=== PATIENT | male | born 1970 | race Caucasian/White ===

== ENCOUNTER 2021-06-13 22:25 | Emergency (ER) | payer MEDICAID, SELFPAY ==
--- NOTE | ~2021-06-13 | XR_ITS ---
EXAMINATION: XR CHEST CLINICAL INFORMATION: Shortness of breath COMPARISON: None TECHNIQUE: Frontal view of the chest was obtained. FINDINGS: No convincing evidence for an acute process. No obvious failure or infiltrate. There is no effusion. There has been a median sternotomy. Surgical sutures overlie the left side of the mediastinum. No effusion. No pneumothorax. Difficult to comment on the cardiac silhouette due to AP film. XR/XR chest 1V IMPRESSION: No convincing evidence for an acute process on this portable study.
[2021-06-13 22:25] VITALS: BP 133/78; PULSE 72; O2SAT 97
[2021-06-13 22:30] VITALS: BP 125/68; PULSE 69; RESP 20; TEMP 37.1; O2SAT 97; BMI 31.0
--- NOTE | 2021-06-13 22:38 | ECG_ITS ---
Test Reason : CHEST PAIN Blood Pressure : / mmHG Vent. Rate : 074 BPM Atrial Rate : 074 BPM P-R Int : 128 ms QRS Dur : 088 ms QT Int : 386 ms P-R-T Axes : 025 035 058 degrees QTc Int : 428 ms Normal sinus rhythm Normal ECG No previous ECGs available Referred By: Ella Burgos Electronically Signed By:CHELSEA GREEN
[2021-06-13 22:40] VITALS: O2SAT 97
--- NOTE | 2021-06-13 22:46 | ED.GENADULT ---
HPI - General Adult General Chief complaint: Upper Respiratory Symptoms Stated complaint: sob Time Seen by Provider: 06/13/21 22:30 Source: patient and EMS Mode of arrival: EMS Limitations: no limitations History of Present Illness HPI narrative: Patient comes emergency room complaining of 2 days diarrhea, feeling short of breath, weakness, coughing which triggers chest pain and subsides with not coughing. Patient complaining of generalized malaise, fatigue. At this moment, patient denies chest pain or shortness of breath. Patient denies any known sick contacts Related Data Previous Rx's Medication Instructions Recorded acetaminophen 500 mg tablet 500 mg PO Q6H PRN #30 tab 06/14/21 Allergies Allergy/AdvReac Type Severity Reaction Status Date / Time No Known Allergies Allergy Verified 06/13/21 22:37 Review of Systems Review of Systems: Constitutional : No Weight loss, No Fever, No Chills, No Night Sweats, complaining of fatigue and general malaise ENT/Mouth : No Hearing loss, No Ear Pain, No Nasal Congestion, No Sinus Pain, No Hoarseness, No sore throat, No Rhinorrhea, No Swallowing Difficulty Eyes: No Eye Pain, No Swelling, No Redness, No Foreign Body, No Discharge, No Vision Changes Cardiovascular : No Chest Pain, no orthopnea, no edema no palpitations Respiratory : Complaining of dry cough, no wheezing, states feels out of breath Gastrointestinal : No Nausea, No Vomiting, complaining of diarrhea, No Constipation, No abdominal Pain, No Hematochezia, No Melena Genitourinary : no irregular bleeding, No Dysuria, No Urinary Frequency, No Hematuria, No Urinary Incontinence, No Urgency, No Flank Pain, No Urinary Flow Changes, No Hesitancy Musculoskeletal : No joint pain, No Myalgias, No Joint Swelling Skin : No Skin Lesions, No rash Neuro : No Weakness, No Numbness, No Paresthesias, No Loss of Consciousness, No Dizziness, No Headache Psych : No Anxiety/Panic, No Depression, No SI/HI/AH/VH, No Social Issues, Heme/Lymph: No Bruising, No Bleeding,No Lymphadenopathy Endocrine : No Polyuria, No Polydipsia, No Temperature Intolerance PMFSH Past Medical History Medical History Coronary atherosclerosis of bypass graft High cholesterol Hypertension Skin cancer Social History Social History Alcohol intake: never Patient Tobacco Use Status: Former Tobacco user Use of substances other than those prescribed or required for medical reasons: No Advance Directives: No Advance Directives Information Provided: Yes Physical Exam Vital Signs: Vital Signs: Last Vital Signs Temp 98.8 F 06/13/21 22:30 Pulse 69 06/13/21 22:30 Resp 20 06/13/21 22:30 BP 125/68 06/13/21 22:30 Pulse Ox 97 06/13/21 22:40 Body Mass Index 31.0 Const: Other: Appearance: Alert. Oriented X3. No acute distress. Eyes: Pupils equal, round and reactive to light. ENT: Pharynx normal. Neck: Normal inspection. Neck supple. No lymph nodes noted. No crepitus CVS: Normal heart rate and rhythm. Pulses normal. Normal S1 and S2 Respiratory: No respiratory distress. Breath sounds normal. No Wheezing. No rales Abdomen: Soft and nontender. No rigidity. No distention. good BS x4 Skin: Skin warm and dry. Normal skin color. Normal skin turgor. Extremities: No lower extremity edema. No Lacerations. No Rash Neuro: Oriented X 3. No motor deficit. No sensory deficit. Moving all extermities. No slurred speech. Course Course Course Narrative: I discussed the labs with the patient, patient tested positive for COVID-19 shortness of breath, patient feeling better, patient had not taking any Tylenol or at all prior to arrival, which made him feel better in the emergency room. Medical Decision Making Lab Data Result diagrams: 06/13/21 23:48 06/13/21 23:09 Labs: Lab Results 06/13/21 06/13/21 06/13/21 Range/Units 22:56 23:09 23:09 WBC (4.8-10.8) X10*3/uL RBC (4.60-5.80) X10*6/uL Hgb (14.0-18.0) g/dl Hct (42-52) % MCV (80-98) fL MCH (27.0-33.0) pg MCHC (31.0-36.0) g/dl RDW (11.0-16.0) % Plt Count (160-400) X10*3/uL MPV (9.4-12.4) fL Immature Gran % (Auto) (0.0-0.4) % Neut % (Auto) (45-73) % Lymph % (Auto) (20-40) % [place] % (Auto) (2-11) % Eos % (Auto) (0-4) % Baso % (Auto) (0-2) % Lymph # (Auto) (1.2-4.9) X10*3/uL [place] # (Auto) (0.1-1.2) X10*3/uL Eos # (Auto) (0.0-0.4) X10*3/uL Baso # (Auto) (0.0-0.2) X10*3/uL Abs Immat Gran (auto) (0.00-0.03) X10*3/uL Absolute Neuts (auto) (2.0-8.3) X10*3/uL Absolute Nucleated RBC (0.0-0.012) X10*3/uL Nucleated RBC % (auto) (0.0-0.2) /100WBC Sodium 138 (135-145) mmol/L Potassium 4.3 (3.3-5.1) mmol/L Chloride 107 (96-108) mmol/L Carbon Dioxide 23 (22-29) mmol/L Anion Gap 12 (12-20) BUN 10 (9-16) mg/dL Creatinine 1.02 (0.5-1.4) mg/dL Estim Creat Clear Calc 95.3 Estimated GFR > 60 Random Glucose 139 H (60-115) mg/dL Lactic Acid (0.5-2.0) mmol/L Calcium 9.0 (8.4-10.2) mg/dL Total Bilirubin 0.3 (0.0-1.0) mg/dL Direct Bilirubin < 0.2 (0.0-0.5) mg/dL AST 30 (5-37) U/L ALT 30 (0-40) U/L Alkaline Phosphatase 104 (39-117) U/L Troponin I High Sens 4.5 (<3.5-35.0) ng/L B-Natriuretic Peptide 45 (<100) pg/mL Total Protein 6.8 (6.5-8.0) g/dL Albumin 3.9 (3.5-5.0) g/dL COVID-19 (JOANA) Positive A (Negative) COVID-19 Clin Com See Note 06/13/21 06/13/21 Range/Units 23:48 23:48 WBC 7.7 (4.8-10.8) X10*3/uL RBC 4.09 L (4.60-5.80) X10*6/uL Hgb 13.5 L (14.0-18.0) g/dl Hct 38.1 L (42-52) % MCV 93.2 (80-98) fL MCH 33.0 (27.0-33.0) pg MCHC 35.4 (31.0-36.0) g/dl RDW 13.1 (11.0-16.0) % Plt Count 205 (160-400) X10*3/uL MPV 9.2 L (9.4-12.4) fL Immature Gran % (Auto) 0.4 (0.0-0.4) % Neut % (Auto) 76.1 H (45-73) % Lymph % (Auto) 10.2 L (20-40) % [place] % (Auto) 12.5 H (2-11) % Eos % (Auto) 0.7 (0-4) % Baso % (Auto) 0.1 (0-2) % Lymph # (Auto) 0.8 L (1.2-4.9) X10*3/uL [place] # (Auto) 1.0 (0.1-1.2) X10*3/uL Eos # (Auto) 0.1 (0.0-0.4) X10*3/uL Baso # (Auto) 0.0 (0.0-0.2) X10*3/uL Abs Immat Gran (auto) 0.03 (0.00-0.03) X10*3/uL Absolute Neuts (auto) 5.8 (2.0-8.3) X10*3/uL Absolute Nucleated RBC 0.000 (0.0-0.012) X10*3/uL Nucleated RBC % (auto) 0.0 (0.0-0.2) /100WBC Sodium (135-145) mmol/L Potassium (3.3-5.1) mmol/L Chloride (96-108) mmol/L Carbon Dioxide (22-29) mmol/L Anion Gap (12-20) BUN (9-16) mg/dL Creatinine (0.5-1.4) mg/dL Estim Creat Clear Calc Estimated GFR Random Glucose (60-115) mg/dL Lactic Acid 1.5 (0.5-2.0) mmol/L Calcium (8.4-10.2) mg/dL Total Bilirubin (0.0-1.0) mg/dL Direct Bilirubin (0.0-0.5) mg/dL AST (5-37) U/L ALT (0-40) U/L Alkaline Phosphatase (39-117) U/L Troponin I High Sens (<3.5-35.0) ng/L B-Natriuretic Peptide (<100) pg/mL Total Protein (6.5-8.0) g/dL Albumin (3.5-5.0) g/dL COVID-19 (JOANA) (Negative) COVID-19 Clin Com Imaging Data Chest x-ray: Radiologist's impression: No convincing evidence for an acute process. No obvious failure or infiltrate. There is no effusion. There has been a median sternotomy. Surgical sutures overlie the left side of the mediastinum. No effusion. No pneumothorax. Difficult to comment on the cardiac silhouette due to AP film. XR/XR chest 1V IMPRESSION: No convincing evidence for an acute process on this portable study. ECG Data Attestation: I personally reviewed and interpreted this ECG as follows: (Normal sinus rhythm, heart rate 74, no ST segment depression or elevation, no T-wave inversions, QTC 428) Discharge Plan Discharge Clinical Impression: COVID-19 Patient Disposition: Home, Self-Care Instructions: COVID-19 (Coronavirus Disease 2019) (ED) Additional Instructions: Please follow-up with your primary care physician tomorrow. If you have any worsening or new symptoms, please return to the emergency room or call 911 Prescriptions: New acetaminophen 500 mg tablet 500 mg PO Q6H PRN (Reason: fever or pain) Qty: 30 RF: 0
[2021-06-13 23:13] LABS: COVID-19 Test Positive (Negative)
[2021-06-13] MEDS: ondansetron HCL 4 MG/2 ML VIAL IVPUSH (23:29)
[2021-06-13] MEDS: Loperamide HCl 2 MG CAPSULE 4 MG PO (23:29)
[2021-06-13] MEDS: 0.9 % Sodium Chloride 1,000 ML 999 ML IVCONT (23:30)
[2021-06-13 23:43] LABS: Alanine Aminotransferase 30 U/L (0-40); Albumin Level 3.9 g/dL (3.5-5.0); Alkaline Phosphatase 104 U/L (39-117); Anion Gap 12 (12-20); Aspartate Amino Transferase 30 U/L (5-37); Bilirubin Direct < 0.2 mg/dL (0.0-0.5); Bilirubin Total 0.3 mg/dL (0.0-1.0); Blood Urea Nitrogen 10 mg/dL (9-16); Carbon Dioxide 23 mmol/L (22-29); Chloride 107 mmol/L (96-108); Creatinine Clr Calc Pharmacy 95.3; Estimated Glomerular Filt Rate > 60; Glucose Random 139 mg/dL (60-115); Potassium 4.3 mmol/L (3.3-5.1); Sodium 138 mmol/L (135-145); Total Protein 6.8 g/dL (6.5-8.0)
[2021-06-13 23:49] LABS: B Type Natriuretic Peptide 45 pg/mL (<100); Troponin-I High Sensitivity 4.5 ng/L (<3.5-35.0)
[2021-06-13 23:55] LABS: MANUAL DIFF FLAG NO
[2021-06-13 23:56] LABS: Basophils Percent Auto 0.1 % (0-2); Eosinophils Absolute Auto 0.1 X10*3/uL (0.0-0.4); Eosinophils Percent Auto 0.7 % (0-4); Hematocrit 38.1 % (42-52); Hemoglobin 13.5 g/dl (14.0-18.0); Imm Gran Abs Auto 0.03 X10*3/uL (0.00-0.03); Imm Gran Pct Auto 0.4 % (0.0-0.4); Lymphocytes Absolute Auto 0.8 X10*3/uL (1.2-4.9); Lymphocytes Percent Auto 10.2 % (20-40); Mean Corpuscular HGB Conc 35.4 g/dl (31.0-36.0); Mean Corpuscular Volume 93.2 fL (80-98); Mean Platelet Volume 9.2 fL (9.4-12.4); Monocytes Percent Auto 12.5 % (2-11); Neutrophils Absolute Auto 5.8 X10*3/uL (2.0-8.3); Neutrophils Percent Auto 76.1 % (45-73); Platelet Count 205 X10*3/uL (160-400); Red Blood Count 4.09 X10*6/uL (4.60-5.80); Red Cell Distribution Width 13.1 % (11.0-16.0); White Blood Count 7.7 X10*3/uL (4.8-10.8)
[2021-06-14 00:04] LABS: Lactic Acid 1.5 mmol/L (0.5-2.0)
== END 2021-06-14 01:56 | disposition home or self-care (01) ==
PROVIDERS: Emergency Provider Emergency Medicine
DX: U07.1 COVID-19 (principal); R06.02 Shortness of breath; R05 Cough; Z79.899 Other long term (current) drug therapy; Z87.891 Personal history of nicotine dependence
CPT/HCPCS: 36415; 71045; 80048; 80076; 83605; 83880; 84484; 85025; 85610; 87040; 87635; 93005; 96361; 96374; 99284; J2405

== ENCOUNTER 2023-07-06 16:50 | Emergency (ER) | payer MEDICAID, SELFPAY ==
--- NOTE | 2023-07-06 | ECG_ITS ---
Test Reason : CHEST PAIN Blood Pressure : / mmHG Vent. Rate : 084 BPM Atrial Rate : 084 BPM P-R Int : 136 ms QRS Dur : 076 ms QT Int : 344 ms P-R-T Axes : 034 020 075 degrees QTc Int : 406 ms Normal sinus rhythm Nonspecific ST abnormality Septal leads Abnormal ECG When compared with ECG of 13-JUN-2021 22:54, No significant change was found Referred By: Generic ED Physician Electronically Signed By:MADISON POSADA MD
--- NOTE | ~2023-07-06 | XR_ITS ---
EXAMINATION: XR CHEST CLINICAL INFORMATION: Chest pain COMPARISON: None available. TECHNIQUE: Frontal view of the chest was obtained. FINDINGS: The lungs are well-expanded and clear of acute pneumonic process. Heart size and pulmonary vascularity is normal. There are mediastinal edwige and median sternotomy sutures from previous CABG. No gross bony abnormality. XR/XR chest 1V IMPRESSION: Unremarkable chest examination.
[2023-07-06 16:58] VITALS: BP 110/72; PULSE 108; O2SAT 99
[2023-07-06 17:03] VITALS: BP 107/68; PULSE 87; RESP 18; TEMP 37.1; O2SAT 100; BMI 30.1
--- NOTE | 2023-07-06 17:12 | ED_ITS ---
HPI - Chest Pain General Chief Complaint: Chest Pain Stated Complaint: CHEST PAIN Time Seen by Provider: 07/06/23 17:12 Source: patient Mode of arrival: EMS Limitations: no limitations History of Present Illness HPI narrative: Patient 53 years old with history of coronary artery disease status post 4 vessel CABG in 2013 comes in for mid chest pain nonradiating received 324 mg of aspirin and 0.4 mg of nitroglycerin. According to patient patient was doing good since bypass surgery never used to get chest pain for last 4 months been having chest pain localized in the mid chest without significant radiation sharp in character lasting only for few minutes then slowly taper off happens mostly when he does any exertion no shortness of breath no diaphoresis no nausea no vomiting patient not able to see any PCP or facetor since this happening. Does not have any nitroglycerin at home taking aspirin daily at this time patient is feeling much better after the EMS give aspirin and nitroglycerin pain started at 15:00 when he ambulated for about 20 minutes Related Data Previous Rx's Medication Instructions Recorded isosorbide mononitrate 30 mg 30 mg PO DAILY #30 tabs 07/06/23 tablet,extended release 24 hr nitroglycerin 0.4 mg sublingual 0.4 mg sublingual Q5M PRN chest 07/06/23 tablet pain #30 tabs Allergies Allergy/AdvReac Type Severity Reaction Status Date / Time No Known Allergies Allergy Verified 06/13/21 22:37 Review of Systems 2 Review of Systems: Yes all other systems are reviewed and are negative [facility] Past Medical History Medical History Skin cancer Coronary atherosclerosis of bypass graft Hypertension High cholesterol Social History Social History Alcohol intake: never Patient Tobacco Use Status: Former Tobacco user Smoked in Last 30 Days: No Use of substances other than those prescribed or required for medical reasons: No Advance Directives: No Advance Directives Information Provided: No Physical Exam 2 Vital Signs: Vital Signs: Last Vital Signs Temp 99.0 F 07/06/23 17:32 Pulse 66 07/06/23 21:03 Resp 16 07/06/23 21:03 BP 113/66 07/06/23 17:32 Pulse Ox 98 07/06/23 21:03 O2 Del Method Room Air 07/06/23 21:03 BMI result Body Mass Index 30.1 Appearance: Alert. Oriented X3. No acute distress. Eyes: No pallor or icterus ENT: Pharynx normal. Oral Mucosa moist Neck: Normal inspection. Neck supple. CVS: Normal heart rate and rhythm. Pulses normal. No murmur/rub or gallop Respiratory: No respiratory distress. Equal air entry bilateral, no wheezing/rales/rhonchi Abdomen: Soft and nontender. Bowel sounds are present, no mass palpable, no CVA tenderness Skin: Skin warm and dry. Normal skin color. Normal skin turgor. Extremities: No lower extremity edema. No calf tenderness Neuro: Oriented X 3. No motor deficit. Medications Administered Discontinued Medications Generic Name Dose Route Start Last Admin Trade Name Freq PRN Reason Stop Dose Admin Nitroglycerin 0.5 inch 07/06/23 17:46 07/06/23 18:08 Nitroglycerin 2 % Oint 1 Gm Packet TRANSDERMA 07/06/23 17:47 0.5 inch ONCE ONE Administration Medical Decision Making Medical Decision Making [facility] Narrative: Patient has an exertional angina with history of CABG no acute EKG changes 2 sets of troponin negative will discharge patient home on Imdur 30 mg with nitroglycerin tablets sublingually as needed patient is supposed to follow facetor and PCP next week Differential Diagnosis Differential Diagnoses: The differential diagnosis associated with the presentation includes ACS/unstable angina/pericarditis/musculoskeletal chest pain Lab Data [facility] Lab Attestation statement: I reviewed the patient's lab results. 07/06/23 17:30 07/06/23 17:30 Labs: Lab Results 07/06/23 07/06/23 Range/Units 17:30 19:50 WBC 13.0 H (4.8-10.8) X10*3/uL RBC 4.70 (4.60-5.80) X10*6/uL Hgb 15.0 (14.0-18.0) g/dl Hct 43.0 (42.0-52.0) % MCV 91.5 (80.0-98.0) fL MCH 31.9 (27.0-33.0) pg MCHC 34.9 (31.0-36.0) g/dl RDW 12.3 (11.0-16.0) % Plt Count 248 (160-400) X10*3/uL MPV 9.1 L (9.4-12.4) fL Immature Gran % (Auto) 0.4 (0.0-0.4) % Neut % (Auto) 82.1 H (45-73) % Lymph % (Auto) 9.2 L (20-40) % [place] % (Auto) 7.8 (2-11) % Eos % (Auto) 0.3 (0-4) % Baso % (Auto) 0.2 (0-2) % Lymph # (Auto) 1.2 (1.2-4.9) X10*3/uL [place] # (Auto) 1.0 (0.1-1.2) X10*3/uL Eos # (Auto) 0.0 (0.0-0.4) X10*3/uL Baso # (Auto) 0.0 (0.0-0.2) X10*3/uL Abs Immat Gran (auto) 0.05 H (0.00-0.03) X10*3/uL Absolute Neuts (auto) 10.7 H (2.0-8.3) x10*3/uL Absolute Nucleated RBC 0.000 (0.0-0.012) X10*3/uL Nucleated RBC % (auto) 0.0 (0.0-0.2) /100WBC PT 12.1 (11.1-13.3) SEC INR 1.0 (0.9-1.1) APTT 29.9 (26.0-36.4) SEC Sodium 140 (135-145) mmol/L Potassium 4.2 (3.3-5.1) mmol/L Chloride 106 (96-108) mmol/L Carbon Dioxide 23 (22-29) mmol/L Anion Gap 15 (12-20) BUN 19 H (9-16) mg/dL Creatinine 1.10 (0.5-1.4) mg/dL Estim Creat Clear Calc 82.6 Estimated GFR > 60 Random Glucose 136 H (60-115) mg/dL Calcium 9.4 (8.4-10.2) mg/dL Magnesium 2.0 (1.6-2.6) mg/dL Total Bilirubin 0.7 (0.0-1.0) mg/dL AST 19 (5-37) U/L ALT 18 (0-40) U/L Alkaline Phosphatase 117 (39-117) U/L Troponin I High Sens 4.1 < 2.7 (<3.5-35.0) ng/L Total Protein 7.4 (6.5-8.0) g/dL Albumin 3.9 (3.5-5.0) g/dL Independent Interpretation I performed an independent interpretation of an: EKG Interpretation: Normal sinus rhythm at rate 84 beats per minute normal interval normal axis no acute ST changes no acute ischemic Discharge Plan Discharge Clinical Impression: Chest pain Patient Disposition: Home, Self-Care Instructions: Chest Pain (ED) Additional Instructions: Follow-up with your facetor next week as advised Continue your medications Start taking Imdur 30 mg daily Take Nitroglycerin tablet as needed for chest pain and Report to the ER if worsening of the chest Toño un seguimiento con atkins cardi?logo la pr?xima semana seg?n lo recomendado Contin?e con carl medicamentos Empiece a tone Imdur 30 mg al d?a. Stearns la tableta de nitroglicerina seg?n sea necesario para el dolor de pecho y Informe a urgencias si el t?rax empeora. Prescriptions: New isosorbide mononitrate 30 mg tablet extended release 24 hr 30 mg PO DAILY Qty: 30 0RF nitroglycerin 0.4 mg tablet, sublingual 0.4 mg sublingual Q5M PRN (Reason: chest pain) Qty: 30 0RF Rx Instructions: do not exceed 3 doses per episode Interventions: ED Discharge Assessment Last Done: 07/06/23 21:03 Discharge Date/Time: 07/06/23 21:04 Print Language: Cook Islander
[2023-07-06 17:32] VITALS: BP 113/66; PULSE 83; RESP 16; TEMP 37.2; O2SAT 98
--- NOTE | 2023-07-06 17:33 | MHC.EDTECH ---
THIS PCT JUST ASSUMED CARE OF PT ,VITALS TAKEN ,BLOOD DRAWN AND SENT TO LAB .
[2023-07-06 17:34] LABS: MANUAL DIFF FLAG NO
[2023-07-06 17:36] LABS: Basophils Percent Auto 0.2 % (0-2); Eosinophils Percent Auto 0.3 % (0-4); Imm Gran Abs Auto 0.05 X10*3/uL (0.00-0.03); Imm Gran Pct Auto 0.4 % (0.0-0.4); Lymphocytes Absolute Auto 1.2 X10*3/uL (1.2-4.9); Lymphocytes Percent Auto 9.2 % (20-40); Mean Corpuscular HGB Conc 34.9 g/dl (31.0-36.0); Mean Corpuscular Hemoglobin 31.9 pg (27.0-33.0); Mean Corpuscular Volume 91.5 fL (80.0-98.0); Mean Platelet Volume 9.1 fL (9.4-12.4); Monocytes Percent Auto 7.8 % (2-11); Neutrophils Absolute Auto 10.7 x10*3/uL (2.0-8.3); Neutrophils Percent Auto 82.1 % (45-73); Platelet Count 248 X10*3/uL (160-400); Red Cell Distribution Width 12.3 % (11.0-16.0)
[2023-07-06 17:41] LABS: Prothrombin Time 12.1 SEC (11.1-13.3)
[2023-07-06 17:44] LABS: Partial Thromboplastin Time 29.9 SEC (26.0-36.4)
[2023-07-06 17:48] LABS: Alanine Aminotransferase 18 U/L (0-40); Albumin Level 3.9 g/dL (3.5-5.0); Alkaline Phosphatase 117 U/L (39-117); Anion Gap 15 (12-20); Aspartate Amino Transferase 19 U/L (5-37); Bilirubin Total 0.7 mg/dL (0.0-1.0); Blood Urea Nitrogen 19 mg/dL (9-16); Calcium 9.4 mg/dL (8.4-10.2); Carbon Dioxide 23 mmol/L (22-29); Chloride 106 mmol/L (96-108); Creatinine Clr Calc Pharmacy 82.6; Estimated Glomerular Filt Rate > 60; Glucose Random 136 mg/dL (60-115); Potassium 4.2 mmol/L (3.3-5.1); Sodium 140 mmol/L (135-145); Total Protein 7.4 g/dL (6.5-8.0)
[2023-07-06 17:49] VITALS: PULSE 86
[2023-07-06 17:55] LABS: Troponin-I High Sensitivity 4.1 ng/L (<3.5-35.0)
[2023-07-06] MEDS: Nitroglycerin 2 % Oint 1 GM Packet 0.5 INCH TRANSDERMA (18:08)
--- NOTE | 2023-07-06 18:52 | MHC.EDTECH ---
PT HAAD [employer] AND FRIES FOR DINNER ,PT NOW SLEEPING ,NO APPARENT DISTRESS AT THIS TIME .
[2023-07-06 20:24] LABS: Troponin-I High Sensitivity < 2.7 ng/L (<3.5-35.0)
[2023-07-06 21:03] VITALS: PULSE 66; RESP 16; O2SAT 98
== END 2023-07-06 21:04 | disposition home or self-care (01) ==
PROVIDERS: Emergency Provider Internal Medicine
DX: R07.89 Other chest pain (principal); I25.10 Atherosclerotic heart disease of native coronary artery without angina pectoris; Z79.899 Other long term (current) drug therapy
CPT/HCPCS: 36415; 71045; 80053; 83735; 84484; 85025; 85610; 85730; 93005; 99283; 99285

== ENCOUNTER 2024-10-13 22:32 | Inpatient (IN) | payer OTHER, SELFPAY ==
[2024-10-13 23:00] VITALS: BP 152/78; PULSE 80; RESP 16; TEMP 36.6; O2SAT 99
[2024-10-14 00:01] VITALS: BMI 28.9
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
[2024-10-14 07:00] VITALS: BMI 29.0
[2024-10-14 07:51] LABS: Estimated Average Glucose 143 mg/dL; Hemoglobin A1C 188.0958 umol/L; Hemoglobin A1c % 6.6 % (<6.0)
[2024-10-14 08:05] LABS: Glucose, Whole Blood 135 mg/dL (60-115)
[2024-10-14 08:09] LABS: Alanine Aminotransferase 110 U/L (0-40); Albumin Level 3.5 g/dL (3.5-5.0); Alkaline Phosphatase 169 U/L (39-117); Anion Gap 12 (12-20); Aspartate Amino Transferase 62 U/L (5-37); Bilirubin Total 0.3 mg/dL (0.0-1.0); Blood Urea Nitrogen 12 mg/dL (9-16); Calcium 8.8 mg/dL (8.4-10.2); Carbon Dioxide 23 mmol/L (22-29); Chloride 109 mmol/L (96-108); Cholesterol 126 mg/dL (<200); Creatinine Clr Calc Pharmacy 99.9; Estimated Glomerular Filt Rate > 60; Glucose Random 154 mg/dL (60-115); HDL Cholesterol 35 mg/dL (>40); LDL Cholesterol Calculated 56 mg/dL (<100); Potassium 4.5 mmol/L (3.3-5.1); Sodium 139 mmol/L (135-145); Triglycerides 179 mg/dL (<150)
[2024-10-14 08:26] LABS: Thyroid Stimulating Hormone 2.04 uIU/mL (0.32-4.0)
[2024-10-14 08:38] LABS: Folate 9.9 ng/mL (> or = 4.0); Vitamin B12 895 pg/mL (200-900)
[2024-10-14 09:17] VITALS: BP 116/62; PULSE 65; RESP 18; TEMP 36.3; O2SAT 96
--- NOTE | 2024-10-14 09:43 | PC.NURSE ---
Pt declines flu shot, reporting he was already vaccinated this year.
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
[2024-10-14] MEDS: ARIPiprazole 10 MG TABLET PO (10:16)
[2024-10-14] MEDS: traMADoL HCL 50 MG TABLET 100 MG PO ×2 (10:16→18:01)
[2024-10-14] MEDS: Aspirin Enteric Coated 81 MG TABLET.DR PO (10:16)
[2024-10-14 10:44] VITALS: BP 116/57
--- NOTE | 2024-10-14 11:11 | HO.PM.IMCN ---
History of Present Illness Data of Consult Service Date: 10/14/24 Primary Care Provider: Unknown Physician [facility] Reason for consult: Admission H&P Pt is a 54-year-old Haitian-speaking male with a PMH significant for CAD s/p CABG in 2012, HTN, HLD, peripheral artery disease, insulin-dependent type 2 diabetes, peripheral neuropathy, hx diabetic foot ulcer w/osteomyelitis s/p multiple toe amputations, and GERD who is admitted to psychiatry unit for SI/HI with auditory hallucinations telling him to kill others and himself. Pt initially presented to [facility] ED on 10/02/2024 for chronic diabetic foot ulcer and was medically admitted for osteomyelitis. Pt underwent 2nd toe augmentation of right foot and completed antibiotic course while in the hospital. Pt apparently had suicide attempt due to medication overdose while in the hospital, being found unresponsive and with pills from home under his below. Medical consult for admission H&P. Pt has numerous acute and chronic complaints. Pt complains of worsening pain in his right foot, as well as numbness and tingling in upper and lower extremities that has been ongoing for some time. Earlier today stated felt chest pressure that was alleviated by nitro. Also complains of left arm cramps for the past 2-3 weeks, as well as worsening eyesight over the past year. No fever, chills, nausea, vomiting, abdominal pain. Denies shortness or breath or difficulty breathing. ? Review of Systems Review of Systems: Negative except for that which is stated in the HPI ON LICENSE OF [facility] Medical History (Updated 10/15/24 @ 21:50 by VICENTE Goldberg) Depression Skin cancer Coronary atherosclerosis of bypass graft Hypertension High cholesterol Social History Household Members: None Housing: Homeless Do you presently have visiting nurse or other home services: No Alcohol intake: never Patient Tobacco Use Status: Former Tobacco user Smoked in Last 30 Days: No Patient Interested in Nicotine Replacement: No Patient Given Instructions on How to Stop Smoking: No Second Hand Smoke Exposure: No Use of substances other than those prescribed or required for medical reasons: No Substance Use Type: Marijuana Substance Use Frequency: Occasionally Last Used Substance: Weeks (ago) Currently Displaying Signs/Symptoms of Drug Intoxication Withdrawal: No Any prior treatment program specific to substance use: No Have you been hit, kicked, punched, or otherwise hurt by someone within the past year? If so, by whom?: No Do you feel safe in your current relationship?: Yes Is there a partner from a previous relationship who is making you feel unsafe now?: No Are you made to feel afraid or neglected: No Advance Directives: No Advance Directives Information Provided: No Do you have thoughts of harming others: None Do you have a plan to hurt others: No Plan Recently lost weight without trying: No Eating poorly because of decreased appetite: No Nutrition Risks: No Nutritional Risk Poor oral hygiene: No service: No Sexual orientation: Straight/Heterosexual Meds Allergies Allergy/AdvReac Type Severity Reaction Status Date / Time ibuprofen Allergy Unknown Unknown Verified 10/15/24 07:20 tuberculin, purified protein Allergy Unknown Unknown Verified 10/15/24 07:20 deriva Active Medications: Current Medications Acetaminophen (Acetaminophen 325 Mg Tablet) 650 mg PO Q6H PRN PRN Reason: Headache/Pain Mild Scale (1-3) Al Hydroxide/Mg Hydroxide (Magnesium Hydrox/Alum Hydrox 30 Ml Oral.Susp) 30 ml PO Q6H PRN PRN Reason: Heartburn/Nausea Alprazolam (Alprazolam 0.5 Mg Tablet) 2 mg PO BID PRN PRN Reason: severe anxiety Aripiprazole (Aripiprazole 10 Mg Tablet) 10 mg PO DAILY [facility] Last Admin: 10/14/24 10:16 Dose: 10 mg Aspirin (Aspirin Enteric Coated 81 Mg Tablet.Dr) 81 mg PO DAILY [facility] Last Admin: 10/14/24 10:16 Dose: 81 mg Atorvastatin Calcium (Atorvastatin Calcium 80 Mg Tablet) 80 mg PO BEDTIME [facility] Enalapril Maleate (Enalapril Maleate 2.5 Mg Tablet) 2.5 mg PO DAILY [facility]; Protocol Last Admin: 10/14/24 10:44 Dose: 2.5 mg Famotidine (Famotidine 20 Mg Tablet) 40 mg PO BEDTIME [facility] Hydroxyzine HCl (Hydroxyzine Hcl 25 Mg Tablet) 25 mg PO Q6H PRN PRN Reason: Anxiety Insulin Glargine (Insulin Glargine,Hum.Rec.Anlog 100 Unit/Ml 10 Ml Vial) 44 unit SUBCUT DAILY [facility] Insulin Human Lispro (Insulin Lispro 100 Unit/Ml 3 Ml Vial) 0 unit SUBCUT QIDACHS [facility]; Protocol Last Admin: 10/14/24 09:16 Dose: Not Given Magnesium Hydroxide (Milk Of Magnesia 30 Ml Oral.Susp) 30 ml PO DAILY PRN PRN Reason: Constipation Melatonin (Melatonin 3 Mg Tablet) 9 mg PO BEDTIME [facility] Metoprolol Tartrate (Metoprolol Tartrate 25 Mg Tablet) 25 mg PO BID [facility]; Protocol Nicotine Polacrilex (Nicotine Polacrilex 2 Mg Gum) 4 mg BUCCAL Q2H PRN PRN Reason: Nicotine Cravings Nitroglycerin (Nitroglycerin 0.4 Mg Tab.Subl) 0.4 mg SUBLINGUAL Q5M PRN PRN Reason: chest pain Omeprazole (Omeprazole 20 Mg Capsule.Dr) 20 mg PO DAILY@0630 [facility] Ondansetron HCl (Ondansetron Odt 4 Mg Tab.Rapdis) 4 mg TRANSLINGU Q8H PRN PRN Reason: nausea/vomiting Pregabalin (Pregabalin 150 Mg Capsule) 150 mg PO BID [facility] Senna (Sennosides 8.6 Mg Tablet) 17.2 mg PO BEDTIME [facility] Tramadol HCl (Tramadol Hcl 50 Mg Tablet) 100 mg PO Q8H [facility] Last Admin: 10/14/24 10:16 Dose: 100 mg Trazodone HCl (Trazodone Hcl 50 Mg Tablet) 50 mg PO BEDTIME MRX1 PRN PRN Reason: Insomnia Home Medications ?Medication ?Instructions ?Recorded ?Confirmed ?Last Taken ?Type acetaminophen 500 mg tablet 1,000 mg PO Q8H 10/14/24 10/14/24 Unknown History alprazolam 2 mg tablet 2 mg PO BID 10/14/24 10/14/24 Unknown History aripiprazole 10 mg tablet 10 mg PO QAM 10/14/24 10/14/24 Unknown History aspirin 81 mg tablet,delayed 81 mg PO DAILY 10/14/24 10/14/24 Unknown History release atorvastatin 80 mg tablet 80 mg PO BEDTIME 10/14/24 10/14/24 Unknown History bupropion HCl 150 mg 24 hr tablet, 150 mg PO QAM 10/14/24 10/14/24 Unknown History extended release doxepin 150 mg capsule 150 mg PO BEDTIME 10/14/24 10/14/24 Unknown History enalapril maleate 2.5 mg tablet 2.5 mg PO DAILY 10/14/24 10/14/24 Unknown History escitalopram oxalate 20 mg tablet 20 mg PO QAM 10/14/24 10/14/24 Unknown History famotidine 40 mg tablet 40 mg PO BEDTIME 10/14/24 10/14/24 Unknown History insulin glargine 100 unit/mL (3 44 unit subcut DAILY 10/14/24 10/14/24 Unknown History mL) subcutaneous pen (Lantus Solostar U-100 Insulin) lidocaine 5 % topical patch patch topical DAILY 10/14/24 Unknown History melatonin 5 mg tablet 10 mg PO BEDTIME 10/14/24 10/14/24 Unknown History metoprolol tartrate 25 mg tablet 25 mg PO BID blood pressure 10/14/24 10/14/24 Unknown History ondansetron HCl 4 mg tablet 4 mg PO Q8H PRN nausea/vomiting 10/14/24 10/14/24 Unknown History pantoprazole 40 mg tablet,delayed 40 mg PO DAILY 10/14/24 10/14/24 Unknown History release pregabalin 150 mg capsule 150 mg PO BID 10/14/24 10/14/24 Unknown History sennosides 8.6 mg tablet (senna) 17.2 mg PO BEDTIME 10/14/24 10/14/24 Unknown History tramadol 50 mg tablet 100 mg PO Q8H 10/14/24 10/14/24 Unknown History zolpidem 10 mg tablet 10 mg PO BEDTIME 10/14/24 10/14/24 Unknown History Physical Exam Vital Signs and Narrative: Vital Signs: Last Vital Signs Temp 97.4 F 10/14/24 09:17 Pulse 65 10/14/24 09:17 Resp 18 10/14/24 09:17 BP 116/57 L 10/14/24 10:44 Pulse Ox 96 10/14/24 09:17 O2 Del Method Room Air 10/14/24 09:17 BMI result Body Mass Index 28.9 General: AOx3, no acute distress Resp: CTA bilaterally CVS: S1, S2, RRR GI: +BS, NT, no distention Skin: Warm, dry Neuro: Cranial nerves II-XII grossly intact bilaterally. Motor grossly intact bilaterally Extremities: Right foot with toes covered in bandage with small amount of blood seeping through. Upper extremities with preserved and symmetric active and passive range of motion. Results Labs 10/14/24 07:35 Labs: Laboratory Results - last 24 hr 10/14/24 10/14/24 07:35 07:50 Anion Gap 12 Estim Creat Clear Calc 99.9 Estimated GFR > 60 POC Glucose 135 H Random Glucose 154 H Estimat Average Glucose 143 Hemoglobin A1c % 6.6 H Calcium 8.8 D Magnesium 2.0 Total Bilirubin 0.3 AST 62 H ALT 110 H Alkaline Phosphatase 169 H Total Protein 7.0 Albumin 3.5 Triglycerides 179 H Cholesterol 126 LDL Cholesterol, Calc 56 HDL Cholesterol 35 L Vitamin B12 895 Folate 9.9 TSH 2.04 Assessment and Plan (1) Medical clearance for psychiatric admission: Status: Acute Plan Pt is a 54-year-old Haitian-speaking male with a PMH significant for CAD s/p CABG, HTN, HLD, peripheral artery disease, insulin-dependent type 2 diabetes, peripheral neuropathy, hx diabetic foot ulcer w/osteomyelitis s/p multiple toe amputations, and GERD who is admitted to [facility] psychiatry unit for SI/HI with auditory hallucinations telling him to kill others and himself. Pt initially presented to [facility] ED on 10/02/2024 for chronic diabetic foot ulcer and was medically admitted for osteomyelitis. Pt underwent 2nd toe augmentation of right foot and completed antibiotic course while in the hospital. Pt apparently had suicide attempt due to medication overdose while in the hospital, being found unresponsive and with pills from home under his below. Medical consult for admission H&P. Mood disorder Plan as per psychiatry Diabetic foot ulcer with osteomyelitis Pt admitted to [facility] on 10/02/2024 for concerns of osteomyelitis secondary to chronic diabetic foot ulcer Underwent 2nd toe amputation on right foot without complications Has completed antibiotic course Treat diabetes as below Wound care consult for wound management Analgesics as per Psychiatry Follow up outpatient with vascular surgery Insulin-dependent type 2 diabetes Continue Lantus Will place on sliding scale insulin Encourage diabetic diet and diabetic snacking CAD Continue aspirin, statin isosorbide mononitrate Peripheral neuropathy Continue pregabalin HTN Continue enalapril, metoprolol GERD Continue famotidine, PPI Blurriness Follow up with optometry Thank you for allowing us to participate in the care of this patient. Signing off at this time. Please re-consult if any acute complaints or issues arise.
[2024-10-14 12:18] LABS: Glucose, Whole Blood 200 mg/dL (60-115)
[2024-10-14] MEDS: Insulin Lispro 100 UNIT/ML 3 ML VIAL SUBCUT ×3 (12:25→20:45)
--- NOTE | 2024-10-14 13:58 | HE.PHANOTE ---
Upon order verification, I noticed that the dose of aripiprazole and lantus were incorrect compared to the discharge packet from [facility] (where pt was at before transferring to [facility]). [facility]'s discharge packet had the dose of aripiprazole as 15 mg daily and lantus as [address] Saldivar was notified of the discrepancies and he said he will pass along the message to Hortencia Katz.
[2024-10-14] MEDS: Acetaminophen 325 MG TABLET 650 MG PO ×2 (14:40→20:35)
[2024-10-14 17:03] LABS: Glucose, Whole Blood 213 mg/dL (60-115)
--- NOTE | 2024-10-14 17:06 | HO.WOUND ---
Wound Consult: Initial 54yr old?male admitted to [facility] on 10/13/24 - See progress notes and H&P for detailed history.? Wound consult placed for Right Foot surgical site.? Patient agreeable to assessment and photo documentation.? Patient reports and chart review confirms surgery was done approximately 1 week ago at an outside facility. He reports he plans to follow up with the surgeon at the time of his discharge. The patient was in a walking / off loading wedge boot since yesterday. He reports he has not been elevating his leg since he did not have a sock on and did not want to offend other in the common area. Patient was advised a new dressing would be applied - new socks would be given and he was agreeable to elevation throughout the day and limiting standing and walking. Right Foot Etiology: surgical toe amputation site -?Present on Admission Measurements: 3.3cm x 0.5cm x 0.3cm Wound Bed: red moist clean wound bed Drainage / Odor: sanguineous drainage Edges: ? dehiscence noted - sutures in place observed Marie wound: mild swelling noted, mild maceration noted - ? No Induration, Fluctuance noted - no s/s of active infection noted Pain: denies pain Goals of Treatment: ? Durafiber AG for moisture management Recommendations: 1. Provide adequate and supplemental nutrition.? 2. When applicable maintain blood glucose levels per Providers order. 3. Right Foot - Cleanse with Normal saline moist gauze, pat dry. Apply skin prep to area around wound allow to dry. Apply Durafiber AG to wound bed, cover with dry gauze dressing such as Opsite left with patient supplies or dry gauze dressing. Change daily. Patient may shower leave dressing in place while showering change once completed. Elevate lower leg throughout the day and limit standing and walking. Wear wedge shoe when out of bed should not be worn in bed. Re-consult wound care Nurse for wound deterioration or wound changes.
[2024-10-14 19:23] LABS: Glucose, Whole Blood 185 mg/dL (60-115)
[2024-10-14 20:00] VITALS: BP 118/61; PULSE 105; TEMP 36.6; O2SAT 98
[2024-10-14 20:29] VITALS: BP 118/61; PULSE 105
[2024-10-14] MEDS: Metoprolol Tartrate 25 MG TABLET PO (20:29)
[2024-10-14] MEDS: Pregabalin 150 MG CAPSULE PO (20:29)
[2024-10-14] MEDS: Sennosides 8.6 MG TABLET 17.2 MG PO (20:30)
[2024-10-14] MEDS: Atorvastatin Calcium 80 MG TABLET PO (20:30)
[2024-10-14] MEDS: Melatonin 3 MG TABLET 9 MG PO (20:31)
[2024-10-14] MEDS: Famotidine 20 MG TABLET 40 MG PO (20:31)
[2024-10-14 20:42] LABS: Glucose, Whole Blood 274 mg/dL (60-115)
[2024-10-15] MEDS: traMADoL HCL 50 MG TABLET 100 MG PO ×3 (04:52→21:31)
[2024-10-15] MEDS: Omeprazole 20 MG CAPSULE.DR PO (07:23)
[2024-10-15 07:25] VITALS: BP 118/58; PULSE 65; TEMP 36.4; O2SAT 99
[2024-10-15] MEDS: Nitroglycerin 0.4 MG TAB.SUBL SUBLINGUAL (07:40)
--- NOTE | 2024-10-15 07:40 | ECG_ITS ---
Test Reason : Acute chest pain Blood Pressure : */* mmHG Vent. Rate : 58 BPM Atrial Rate : 58 BPM P-R Int : 144 ms QRS Dur : 88 ms QT Int : 402 ms P-R-T Axes : 10 38 99 degrees QTcB Int : 394 ms Sinus bradycardia Nonspecific T wave abnormality Abnormal ECG When compared with ECG of 06-Jul-2023 17:02, No significant change was found Referred By: Rogelio Saldivar Electronically Signed By: ANDERSON MEADE
--- NOTE | 2024-10-15 07:53 | PC.NURSE ---
Pt reported chest pain 7/10 and left arm numbness at 0720. Pt reports history of quadruple bypass. VS: 97., 118/58, 65, 99%RA. Dr. Saldivar informed at 0730 and order obtained for stat EKG. Pt given ordered PRN Nitroglycerin 0.4mg with good effect, pt reporting 0/10 pain 5 minutes after 0.4mg dose, but still had left arm numbness.
[2024-10-15 08:00] VITALS: BP 109/59; PULSE 64; RESP 16; TEMP 36.3; O2SAT 99
[2024-10-15 08:22] LABS: Glucose, Whole Blood 184 mg/dL (60-115)
[2024-10-15 08:32] VITALS: BP 116/64; PULSE 67; RESP 16; TEMP 36.7; O2SAT 98
[2024-10-15] MEDS: Insulin Glargine,Hum.rec.anlog 100 UNIT/ML 10 ML VIAL 44 UNIT SUBCUT (08:47)
[2024-10-15] MEDS: Aspirin Enteric Coated 81 MG TABLET.DR PO (08:48)
[2024-10-15] MEDS: Insulin Lispro 100 UNIT/ML 3 ML VIAL SUBCUT ×4 (08:48→21:35)
[2024-10-15] MEDS: Metoprolol Tartrate 25 MG TABLET PO ×2 (08:49→21:31)
[2024-10-15] MEDS: ARIPiprazole 15 MG TABLET PO (08:49)
[2024-10-15] MEDS: Pregabalin 150 MG CAPSULE PO ×2 (08:49→21:30)
[2024-10-15 08:50] LABS: Troponin-I High Sensitivity 2.8 ng/L (<3.5-35.0)
[2024-10-15] MEDS: ALPRAZolam 0.5 MG TABLET 2 MG PO (08:52)
[2024-10-15 11:11] LABS: Troponin-I High Sensitivity < 2.7 ng/L (<3.5-35.0)
[2024-10-15 12:18] LABS: Glucose, Whole Blood 257 mg/dL (60-115)
--- NOTE | 2024-10-15 14:34 | HO.PSYCHPN ---
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 He denies any SI and says he was never actually suicidal. Denies any HI or AVH. Pt says he's sleeping good and expresses much thanks for the help received from staff. Pt asks for discharge, saying he has a court case early Friday. He agrees to DC this Friday Mental Status Exam Mental Status Exam Narrative: Pt is alert and oriented; behavior is cooperative, friendly and calm; patient is not in distress; dressed in casual attire with unkempt hair but adequate hygiene; mood is described as good and affect congruent; eye contact appropriate; Speech is normal rate, volume and prosody and not pressured; no psychomotor agitation/retardation present; thought process is organized and goal directed; Thought content is on tx; otherwise pertinent to relevant topics and without any delusional content, paranoid ideations or grandiosity; denies any SI/HI. There is no evidence of perceptual disturbance. Patients insight and judgment appear intact. Diagnostics Vital Signs (24Hr): Vital Signs - 24 hr 10/14/24 20:00 10/14/24 20:29 10/15/24 07:25 Temperature 97.8 F 97.6 F Pulse Rate 105 H 105 H 65 Respiratory Rate Blood Pressure 118/61 118/61 118/58 L Pulse Oximetry 98 99 Oxygen Delivery Method Room Air Room Air 10/15/24 08:00 10/15/24 08:32 Temperature 97.3 F 98.1 F Pulse Rate 64 67 Respiratory Rate 16 16 Blood Pressure 109/59 L 116/64 Pulse Oximetry 99 98 Oxygen Delivery Method Room Air Room Air BMI result Body Mass Index 29.0 Labs 10/14/24 07:35 Labs: Laboratory Results - last 48 hr 10/14/24 10/14/24 10/14/24 07:35 07:50 12:14 Sodium 139 Potassium 4.5 Chloride 109 H Carbon Dioxide 23 Anion Gap 12 BUN 12 Creatinine 0.91 Estim Creat Clear Calc 99.9 Estimated GFR > 60 POC Glucose 135 H 200 H Random Glucose 154 H Estimat Average Glucose 143 Hemoglobin A1c % 6.6 H Calcium 8.8 D Magnesium 2.0 Total Bilirubin 0.3 AST 62 H ALT 110 H Alkaline Phosphatase 169 H Troponin I High Sens Total Protein 7.0 Albumin 3.5 Triglycerides 179 H Cholesterol 126 LDL Cholesterol, Calc 56 HDL Cholesterol 35 L Vitamin B12 895 Folate 9.9 TSH 2.04 10/14/24 10/14/24 10/14/24 16:59 19:18 20:37 Sodium Potassium Chloride Carbon Dioxide Anion Gap BUN Creatinine Estim Creat Clear Calc Estimated GFR POC Glucose 213 H 185 H 274 H Random Glucose Estimat Average Glucose Hemoglobin A1c % Calcium Magnesium Total Bilirubin AST ALT Alkaline Phosphatase Troponin I High Sens Total Protein Albumin Triglycerides Cholesterol LDL Cholesterol, Calc HDL Cholesterol Vitamin B12 Folate TSH 10/15/24 10/15/24 10/15/24 08:15 08:18 10:32 Sodium Potassium Chloride Carbon Dioxide Anion Gap BUN Creatinine Estim Creat Clear Calc Estimated GFR POC Glucose 184 H Random Glucose Estimat Average Glucose Hemoglobin A1c % Calcium Magnesium Total Bilirubin AST ALT Alkaline Phosphatase Troponin I High Sens 2.8 < 2.7 Total Protein Albumin Triglycerides Cholesterol LDL Cholesterol, Calc HDL Cholesterol Vitamin B12 Folate TSH 10/15/24 12:14 Sodium Potassium Chloride Carbon Dioxide Anion Gap BUN Creatinine Estim Creat Clear Calc Estimated GFR POC Glucose 257 H Random Glucose Estimat Average Glucose Hemoglobin A1c % Calcium Magnesium Total Bilirubin AST ALT Alkaline Phosphatase Troponin I High Sens Total Protein Albumin Triglycerides Cholesterol LDL Cholesterol, Calc HDL Cholesterol Vitamin B12 Folate TSH Medications Medications Current Medications Acetaminophen (Acetaminophen 325 Mg Tablet) 650 mg PO Q6H PRN PRN Reason: Headache/Pain Mild Scale (1-3) Last Admin: 10/14/24 20:35 Dose: 650 mg Al Hydroxide/Mg Hydroxide (Magnesium Hydrox/Alum Hydrox 30 Ml Oral.Susp) 30 ml PO Q6H PRN PRN Reason: Heartburn/Nausea Alprazolam (Alprazolam 0.5 Mg Tablet) 2 mg PO BID PRN PRN Reason: severe anxiety Last Admin: 10/15/24 08:52 Dose: 2 mg Aripiprazole (Aripiprazole 15 Mg Tablet) 15 mg PO DAILY [facility] Last Admin: 10/15/24 08:49 Dose: 15 mg Aspirin (Aspirin Enteric Coated 81 Mg Tablet.Dr) 81 mg PO DAILY [facility] Last Admin: 10/15/24 08:48 Dose: 81 mg Atorvastatin Calcium (Atorvastatin Calcium 80 Mg Tablet) 80 mg PO BEDTIME [facility] Last Admin: 10/14/24 20:30 Dose: 80 mg Dextrose (Dextrose 50 % 25 Gm/50 Ml Syringe) 25 gm IVPUSH Q15M PRN; Protocol PRN Reason: per Hypoglycemia Standing Ord. Enalapril Maleate (Enalapril Maleate 2.5 Mg Tablet) 2.5 mg PO DAILY [facility]; Protocol Last Admin: 10/15/24 08:49 Dose: 2.5 mg Famotidine (Famotidine 20 Mg Tablet) 40 mg PO BEDTIME [facility] Last Admin: 10/14/24 20:31 Dose: 40 mg Glucose (Glucose Gel 15 Gm Gel..Gram.) 15 gm PO Q15M PRN; Protocol PRN Reason: per Hypoglycemia Standing Ord. Hydroxyzine HCl (Hydroxyzine Hcl 25 Mg Tablet) 25 mg PO Q6H PRN PRN Reason: Anxiety Insulin Glargine (Insulin Glargine,Hum.Rec.Anlog 100 Unit/Ml 10 Ml Vial) 44 unit SUBCUT DAILY [facility] Last Admin: 10/15/24 08:47 Dose: 44 unit Insulin Human Lispro (Insulin Lispro 100 Unit/Ml 3 Ml Vial) 0 unit SUBCUT QIDACHS [facility]; Protocol Last Admin: 10/15/24 12:32 Dose: 6 unit Magnesium Hydroxide (Milk Of Magnesia 30 Ml Oral.Susp) 30 ml PO DAILY PRN PRN Reason: Constipation Melatonin (Melatonin 3 Mg Tablet) 9 mg PO BEDTIME [facility] Last Admin: 10/14/24 20:31 Dose: 9 mg Metoprolol Tartrate (Metoprolol Tartrate 25 Mg Tablet) 25 mg PO BID [facility]; Protocol Last Admin: 10/15/24 08:49 Dose: 25 mg Nicotine Polacrilex (Nicotine Polacrilex 2 Mg Gum) 4 mg BUCCAL Q2H PRN PRN Reason: Nicotine Cravings Nitroglycerin (Nitroglycerin 0.4 Mg Tab.Subl) 0.4 mg SUBLINGUAL Q5M PRN PRN Reason: chest pain Last Admin: 10/15/24 07:40 Dose: 0.4 mg Omeprazole (Omeprazole 20 Mg Capsule.Dr) 20 mg PO DAILY@0630 [facility] Last Admin: 10/15/24 07:23 Dose: 20 mg Ondansetron HCl (Ondansetron Odt 4 Mg Tab.Rapdis) 4 mg TRANSLINGU Q8H PRN PRN Reason: nausea/vomiting Pregabalin (Pregabalin 150 Mg Capsule) 150 mg PO BID [facility] Last Admin: 10/15/24 08:49 Dose: 150 mg Senna (Sennosides 8.6 Mg Tablet) 17.2 mg PO BEDTIME [facility] Last Admin: 10/14/24 20:30 Dose: 17.2 mg Tramadol HCl (Tramadol Hcl 50 Mg Tablet) 100 mg PO Q8H [facility] Last Admin: 10/15/24 12:34 Dose: 100 mg Trazodone HCl (Trazodone Hcl 50 Mg Tablet) 50 mg PO BEDTIME MRX1 PRN PRN Reason: Insomnia Zolpidem Tartrate (Zolpidem Tartrate 5 Mg Tablet) 10 mg PO BEDTIME PRN PRN Reason: Insomnia Allergies Allergies Allergy/AdvReac Type Severity Reaction Status Date / Time ibuprofen Allergy Unknown Unknown Verified 10/15/24 07:20 tuberculin, purified protein Allergy Unknown Unknown Verified 10/15/24 07:20 deriva Assessment & Plan Assessment & Plan (1) Depression: Status: Acute Code(s): F32.A - Depression, unspecified Plan Admit, Section 12B, 15 minute checks Collateral Contact Diagnostics as needed Wound Care consultation Continue current regime Increase Abilify to 15 mg daily as done at [facility] Encourage milieu Discharge/Aftercare planning 10/15 pt reports that he's good and feeling much better. He denies any SI and says he was never actually suicidal. Denies any HI or AVH. Pt says he's sleeping good and expresses much thanks for the help received from staff. Pt asks for discharge, saying he has a court case early Friday. He agrees to DC this Friday Pt is at baseline; he is in good behavioral and impulse control. pt is not in imminent risk of harm to self or others; his request for dc honored Patient educated on: diagnosis and medication risk/benefits Informed Consent: understands Reason for continued inpatient stay Substantial Risk for: stable for discharge Time Spent With Patient Time: Total time managing care of this patient today ____ minutes.
[2024-10-15 17:09] LABS: Glucose, Whole Blood 261 mg/dL (60-115)
[2024-10-15 21:00] VITALS: BP 96/61; PULSE 69; TEMP 36.6; O2SAT 98
[2024-10-15 21:16] LABS: Glucose, Whole Blood 225 mg/dL (60-115)
[2024-10-15] MEDS: Sennosides 8.6 MG TABLET 17.2 MG PO (21:30)
[2024-10-15] MEDS: Melatonin 3 MG TABLET 9 MG PO (21:31)
[2024-10-15] MEDS: Atorvastatin Calcium 80 MG TABLET PO (21:31)
[2024-10-15] MEDS: Famotidine 20 MG TABLET 40 MG PO (21:32)
[2024-10-16 06:45] VITALS: BP 140/66; PULSE 73; RESP 16; TEMP 36.6; O2SAT 99
[2024-10-16 07:26] VITALS: BP 140/66; PULSE 73; RESP 16; TEMP 36.6; O2SAT 99
--- NOTE | 2024-10-16 07:31 | HE.NUR.EV ---
@ 0645 on 10/16/24 staff responded to pt shouts from shower room. Upon entering shower room pt noted to be seated on floor of shower with legs tucked under. Pt reports trying to lean his back against shower wall in order to finish washing but this only cause him to slip. Pt S/P right foot surgery, ,hx of left greater toe removal. Pt denies LOC, denies hitting head, denies pain or any other injury. Pt is A&Ox4, B/P 140/66, all other VS WNL.
[2024-10-16 07:56] LABS: Glucose, Whole Blood 243 mg/dL (60-115)
[2024-10-16 08:30] VITALS: BP 121/60; PULSE 70; RESP 18; TEMP 36.3; O2SAT 98
[2024-10-16] MEDS: Omeprazole 20 MG CAPSULE.DR PO (08:32)
[2024-10-16] MEDS: ARIPiprazole 15 MG TABLET PO (08:32)
[2024-10-16] MEDS: Metoprolol Tartrate 25 MG TABLET PO ×2 (08:32→21:20)
[2024-10-16] MEDS: Aspirin Enteric Coated 81 MG TABLET.DR PO (08:33)
[2024-10-16] MEDS: Pregabalin 150 MG CAPSULE PO ×2 (08:33→21:19)
[2024-10-16] MEDS: Insulin Glargine,Hum.rec.anlog 100 UNIT/ML 10 ML VIAL 44 UNIT SUBCUT (08:35)
[2024-10-16] MEDS: Insulin Lispro 100 UNIT/ML 3 ML VIAL SUBCUT ×3 (08:35→22:19)
--- NOTE | 2024-10-16 08:52 | HO.PSYCHPN ---
Documented by User: Shay Anderson MD 10/16/24 15:39 Subjective Subjective Date of Service: 10/16/24 Reason For Visit: major depression, recurrent, severe Subjective Notes: Section 12B Interim History: Met with patient; discussed with nursing; seen w/ supervisor [employer]#[id number]. consistent with recent documentation, patient remained eager for discharge, having a court date on Friday10/18/2024. Reluctant to discuss details regarding the case, except if he does not attend he will get arrested but is also not serious . Denies Depression, SI, psychosis. Reports sleep energy and appetite good. No med concerns. ongoing agreement around discharge tomorrow Friday10/17/24. Would like medications sent to [facility] [address]. Reports having follow-up appointment on 11/02/2024. Review of Systems Review of Systems Negative except for that which is stated in the HPI Mental Status Exam Mental Status Exam Patient Appearance: Appropriate Patient Orientation: Person, Place, Time and Situation Level of Consciousness: Alert Patient Behavior: Talkative and Good Eye Contact Mood Description: Appropriate and Constricted Affect Description: Appropriate and Constricted Patient Cognition Impaired: No Ability to Follow Directions: Good Speech Pattern: Spontaneous Speech Memory Description: Intact and Episodic Impaired Diagnostics Vital Signs (24Hr): Vital Signs - 24 hr 10/15/24 21:00 10/16/24 06:45 10/16/24 07:26 Temperature 97.8 F 97.8 F 97.8 F Pulse Rate 69 73 73 Respiratory Rate 16 16 Blood Pressure 96/61 140/66 H 140/66 H Pulse Oximetry 98 99 99 Oxygen Delivery Method Room Air Room Air BMI result Body Mass Index 29.0 Labs 10/14/24 07:35 Labs: Laboratory Results - last 48 hr 10/14/24 10/14/24 10/14/24 12:14 16:59 19:18 POC Glucose 200 H 213 H 185 H Troponin I High Sens 10/14/24 10/15/24 10/15/24 20:37 08:15 08:18 POC Glucose 274 H 184 H Troponin I High Sens 2.8 10/15/24 10/15/24 10/15/24 10:32 12:14 17:06 POC Glucose 257 H 261 H Troponin I High Sens < 2.7 10/15/24 10/16/24 21:11 07:47 POC Glucose 225 H 243 H Troponin I High Sens Medications Medications Current Medications Acetaminophen (Acetaminophen 325 Mg Tablet) 650 mg PO Q6H PRN PRN Reason: Headache/Pain Mild Scale (1-3) Last Admin: 10/14/24 20:35 Dose: 650 mg Al Hydroxide/Mg Hydroxide (Magnesium Hydrox/Alum Hydrox 30 Ml Oral.Susp) 30 ml PO Q6H PRN PRN Reason: Heartburn/Nausea Alprazolam (Alprazolam 0.5 Mg Tablet) 2 mg PO BID PRN PRN Reason: severe anxiety Last Admin: 10/15/24 08:52 Dose: 2 mg Aripiprazole (Aripiprazole 15 Mg Tablet) 15 mg PO DAILY [facility] Last Admin: 10/16/24 08:32 Dose: 15 mg Aspirin (Aspirin Enteric Coated 81 Mg Tablet.Dr) 81 mg PO DAILY [facility] Last Admin: 10/16/24 08:33 Dose: 81 mg Atorvastatin Calcium (Atorvastatin Calcium 80 Mg Tablet) 80 mg PO BEDTIME [facility] Last Admin: 10/15/24 21:31 Dose: 80 mg Dextrose (Dextrose 50 % 25 Gm/50 Ml Syringe) 25 gm IVPUSH Q15M PRN; Protocol PRN Reason: per Hypoglycemia Standing Ord. Enalapril Maleate (Enalapril Maleate 2.5 Mg Tablet) 2.5 mg PO DAILY [facility]; Protocol Last Admin: 10/16/24 08:32 Dose: 2.5 mg Famotidine (Famotidine 20 Mg Tablet) 40 mg PO BEDTIME [facility] Last Admin: 10/15/24 21:32 Dose: 40 mg Glucose (Glucose Gel 15 Gm Gel..Gram.) 15 gm PO Q15M PRN; Protocol PRN Reason: per Hypoglycemia Standing Ord. Hydroxyzine HCl (Hydroxyzine Hcl 25 Mg Tablet) 25 mg PO Q6H PRN PRN Reason: Anxiety Insulin Glargine (Insulin Glargine,Hum.Rec.Anlog 100 Unit/Ml 10 Ml Vial) 44 unit SUBCUT DAILY [facility] Last Admin: 10/16/24 08:35 Dose: 44 unit Insulin Human Lispro (Insulin Lispro 100 Unit/Ml 3 Ml Vial) 0 unit SUBCUT QIDACHS [facility]; Protocol Last Admin: 10/16/24 08:35 Dose: 4 unit Magnesium Hydroxide (Milk Of Magnesia 30 Ml Oral.Susp) 30 ml PO DAILY PRN PRN Reason: Constipation Melatonin (Melatonin 3 Mg Tablet) 9 mg PO BEDTIME [facility] Last Admin: 10/15/24 21:31 Dose: 9 mg Metoprolol Tartrate (Metoprolol Tartrate 25 Mg Tablet) 25 mg PO BID [facility]; Protocol Last Admin: 10/16/24 08:32 Dose: 25 mg Nicotine Polacrilex (Nicotine Polacrilex 2 Mg Gum) 4 mg BUCCAL Q2H PRN PRN Reason: Nicotine Cravings Nitroglycerin (Nitroglycerin 0.4 Mg Tab.Subl) 0.4 mg SUBLINGUAL Q5M PRN PRN Reason: chest pain Last Admin: 10/15/24 07:40 Dose: 0.4 mg Omeprazole (Omeprazole 20 Mg Capsule.Dr) 20 mg PO DAILY@0630 [facility] Last Admin: 10/16/24 08:32 Dose: 20 mg Ondansetron HCl (Ondansetron Odt 4 Mg Tab.Rapdis) 4 mg TRANSLINGU Q8H PRN PRN Reason: nausea/vomiting Pregabalin (Pregabalin 150 Mg Capsule) 150 mg PO BID [facility] Last Admin: 10/16/24 08:33 Dose: 150 mg Senna (Sennosides 8.6 Mg Tablet) 17.2 mg PO BEDTIME [facility] Last Admin: 10/15/24 21:30 Dose: 17.2 mg Tramadol HCl (Tramadol Hcl 50 Mg Tablet) 100 mg PO Q8H [facility] Last Admin: 10/16/24 05:23 Dose: Not Given Trazodone HCl (Trazodone Hcl 50 Mg Tablet) 50 mg PO BEDTIME MRX1 PRN PRN Reason: Insomnia Zolpidem Tartrate (Zolpidem Tartrate 5 Mg Tablet) 10 mg PO BEDTIME PRN PRN Reason: Insomnia Allergies Allergies Allergy/AdvReac Type Severity Reaction Status Date / Time ibuprofen Allergy Unknown Unknown Verified 10/15/24 07:20 tuberculin, purified protein Allergy Unknown Unknown Verified 10/15/24 07:20 deriva Assessment & Plan Assessment & Plan (1) Medical clearance for psychiatric admission: Status: Acute Code(s): Z00.8 - Encounter for other general examination Plan Admit, Section 12B, 15 minute checks Collateral Contact Diagnostics as needed Wound Care consultation Continue current regime Increase Abilify to 15 mg daily as done at [facility] Encourage milieu Discharge/Aftercare planning . 10/15 pt reports that he's good and feeling much better. He denies any SI and says he was never actually suicidal. Denies any HI or AVH. Pt says he's sleeping good and expresses much thanks for the help received from staff. Pt asks for discharge, saying he has a court case early Friday. He agrees to DC this Friday Pt is at baseline; he is in good behavioral and impulse control. pt is not in imminent risk of harm to self or others; his request for dc honored 10/16: appearing improved- if this maintains will DC Friday10/17/24 Diabetic foot ulcer with osteomyelitis Pt admitted to [facility] on 10/02/2024 for concerns of osteomyelitis secondary to chronic diabetic foot ulcer Underwent 2nd toe amputation on right foot without complications Has completed antibiotic course Treat diabetes as below Wound care consult for wound management Analgesics as per Psychiatry Follow up outpatient with vascular surgery Insulin-dependent type 2 diabetes Continue Lant[address] Will place on sliding scale insulin Encourage diabetic diet and diabetic snacking CAD Continue aspirin, statin isosorbide mononitrate Peripheral neuropathy Continue pregabalin HTN Continue enalapril, metoprolol GERD Continue famotidine, PPI Blurriness Follow up with optometry Thank you for allowing us to participate in the care of this patient. Signing off at this time. Please re-consult if any acute complaints or issues arise. Reason for continued inpatient stay Substantial Risk for: rapid decompensation Time Spent With Patient Time: Total time managing care of this patient today ____ minutes. Documented by User: Rogelio Saldivar MD 10/17/24 10:14 Subjective Subjective Reason For Visit: major depression, recurrent, severe Diagnostics Labs 10/14/24 07:35 Assessment & Plan Assessment & Plan (1) Medical clearance for psychiatric admission: Status: Acute Code(s): Z00.8 - Encounter for other general examination Plan Admit, Section 12B, 15 minute checks Collateral Contact Diagnostics as needed Wound Care consultation Continue current regime Increase Abilify to 15 mg daily as done at [facility] Encourage milieu Discharge/Aftercare planning . 10/15 pt reports that he's good and feeling much better. He denies any SI and says he was never actually suicidal. Denies any HI or AVH. Pt says he's sleeping good and expresses much thanks for the help received from staff. Pt asks for discharge, saying he has a court case early Friday morning. He agrees to DC this Friday Pt is at baseline; he is in good behavioral and impulse control. pt is not in imminent risk of harm to self or others; his request for dc honored Diabetic foot ulcer with osteomyelitis Pt admitted to [facility] on 10/02/2024 for concerns of osteomyelitis secondary to chronic diabetic foot ulcer Underwent 2nd toe amputation on right foot without complications Has completed antibiotic course Treat diabetes as below Wound care consult for wound management Analgesics as per Psychiatry Follow up outpatient with vascular surgery Insulin-dependent type 2 diabetes Continue Lantus Will place on sliding scale insulin Encourage diabetic diet and diabetic snacking CAD Continue aspirin, statin isosorbide mononitrate Peripheral neuropathy Continue pregabalin HTN Continue enalapril, metoprolol GERD Continue famotidine, PPI Blurriness Follow up with optometry Thank you for allowing us to participate in the care of this patient. Signing off at this time. Please re-consult if any acute complaints or issues arise.
[2024-10-16] MEDS: traMADoL HCL 50 MG TABLET 100 MG PO (10:01)
[2024-10-16 12:16] LABS: Glucose, Whole Blood 240 mg/dL (60-115)
[2024-10-16] MEDS: ALPRAZolam 0.5 MG TABLET 2 MG PO (12:18)
[2024-10-16 16:36] LABS: Glucose, Whole Blood 177 mg/dL (60-115)
[2024-10-16 21:00] VITALS: BP 142/67; PULSE 71; RESP 16; TEMP 36.7; O2SAT 98
[2024-10-16 21:09] LABS: Glucose, Whole Blood 192 mg/dL (60-115)
[2024-10-16] MEDS: Atorvastatin Calcium 80 MG TABLET PO (21:19)
[2024-10-16] MEDS: Sennosides 8.6 MG TABLET 17.2 MG PO (21:20)
[2024-10-16] MEDS: Melatonin 3 MG TABLET 9 MG PO (21:20)
[2024-10-16] MEDS: Famotidine 20 MG TABLET 40 MG PO (21:20)
[2024-10-17] MEDS: traMADoL HCL 50 MG TABLET 100 MG PO (06:26)
[2024-10-17] MEDS: Omeprazole 20 MG CAPSULE.DR PO (06:27)
[2024-10-17 08:11] LABS: Glucose, Whole Blood 194 mg/dL (60-115)
[2024-10-17] MEDS: ARIPiprazole 15 MG TABLET PO (08:35)
[2024-10-17] MEDS: Aspirin Enteric Coated 81 MG TABLET.DR PO (08:36)
[2024-10-17] MEDS: Pregabalin 150 MG CAPSULE PO (08:36)
[2024-10-17] MEDS: Metoprolol Tartrate 25 MG TABLET PO (08:36)
[2024-10-17] MEDS: Insulin Glargine,Hum.rec.anlog 100 UNIT/ML 10 ML VIAL 44 UNIT SUBCUT (08:38)
[2024-10-17] MEDS: Insulin Lispro 100 UNIT/ML 3 ML VIAL SUBCUT (08:38)
[2024-10-17 08:40] VITALS: BP 124/64; PULSE 62; RESP 18; TEMP 36.4; O2SAT 98
--- NOTE | 2024-10-17 09:43 | P.DS_ITS ---
DS: Providers Provider Date of admission: 10/13/24 22:32 Primary care physician: Unknown Physician Consults: 10/13/24 23:20 Consult to Hospitalist Routine Comment: Consulting Provider: [facility] [place] Hospitalists Reason For Exam: medical H&P Consult to Wound Care Routine Reason for consultation: open wound Has provider been notified: Yes DS: Diagnosis Discharge Diagnosis (1) Medical clearance for psychiatric admission: Status: Acute DS: Medications Discharge Medications Home Medications: Home Medications ?Medication ?Instructions ?Recorded ?Confirmed acetaminophen 500 mg tablet 1,000 mg PO Q8H 10/14/24 10/14/24 alprazolam 2 mg tablet 2 mg PO BID 10/14/24 10/14/24 bupropion HCl 150 mg 24 hr tablet, 150 mg PO QAM 10/14/24 10/14/24 extended release doxepin 150 mg capsule 150 mg PO BEDTIME 10/14/24 10/14/24 escitalopram oxalate 20 mg tablet 20 mg PO QAM 10/14/24 10/14/24 lidocaine 5 % topical patch patch topical DAILY 10/14/24 tramadol 50 mg tablet 100 mg PO Q8H 10/14/24 10/14/24 zolpidem 10 mg tablet 10 mg PO BEDTIME 10/14/24 10/14/24 Previous Rx's ?Medication ?Instructions ?Recorded aripiprazole 15 mg tablet 15 mg PO DAILY 30 days #30 tabs 10/16/24 aspirin 81 mg tablet,delayed 81 mg PO DAILY 30 days #30 tabs 10/16/24 release atorvastatin 80 mg tablet 80 mg PO BEDTIME 30 days #30 tabs 10/16/24 enalapril maleate 2.5 mg tablet 2.5 mg PO DAILY 30 days #30 tabs 10/16/24 isosorbide mononitrate 30 mg 30 mg PO DAILY 30 days #30 tabs 10/16/24 tablet,extended release 24 hr metoprolol tartrate 25 mg tablet 25 mg PO BID blood pressure 30 10/16/24 days #60 tabs nitroglycerin 0.4 mg sublingual 0.4 mg sublingual Q5M PRN chest 10/16/24 tablet pain 30 days #30 tabs pregabalin 150 mg capsule 150 mg PO BID 30 days #60 caps 10/16/24 famotidine 40 mg tablet 40 mg PO BEDTIME 30 days #30 tabs 10/17/24 insulin glargine 100 unit/mL (3 44 unit (0.44 mL) subcut DAILY 10/17/24 mL) subcutaneous pen (Lantus #13.2 mL Solostar U-100 Insulin) melatonin 5 mg tablet 10 mg (2 x 5 mg) PO BEDTIME 30 10/17/24 days #60 tabs ondansetron HCl 4 mg tablet 4 mg PO Q8H PRN nausea/vomiting 10/17/24 days #30 tabs pantoprazole 40 mg tablet,delayed 40 mg PO DAILY 30 days #30 tabs 10/17/24 release sennosides 8.6 mg tablet (senna) 17.2 mg (2 x 8.6 mg) PO BEDTIME 10/17/24 days #60 tabs Data Data Completed and Pending Completed studies during hospitalization [Text1]: 10/14/24 10/14/24 10/14/24 07:35 07:50 12:14 Sodium 139 Potassium 4.5 Chloride 109 H Carbon Dioxide 23 Anion Gap 12 BUN 12 Creatinine 0.91 Estim Creat Clear Calc 99.9 Estimated GFR > 60 POC Glucose 135 H 200 H Random Glucose 154 H Estimat Average Glucose 143 Hemoglobin A1c % 6.6 H Calcium 8.8 D Magnesium 2.0 Total Bilirubin 0.3 AST 62 H ALT 110 H Alkaline Phosphatase 169 H Troponin I High Sens Total Protein 7.0 Albumin 3.5 Triglycerides 179 H Cholesterol 126 LDL Cholesterol, Calc 56 HDL Cholesterol 35 L Vitamin B12 895 Folate 9.9 TSH 2.04 10/14/24 10/14/24 10/14/24 16:59 19:18 20:37 Sodium Potassium Chloride Carbon Dioxide Anion Gap BUN Creatinine Estim Creat Clear Calc Estimated GFR POC Glucose 213 H 185 H 274 H Random Glucose Estimat Average Glucose Hemoglobin A1c % Calcium Magnesium Total Bilirubin AST ALT Alkaline Phosphatase Troponin I High Sens Total Protein Albumin Triglycerides Cholesterol LDL Cholesterol, Calc HDL Cholesterol Vitamin B12 Folate [facility] 10/15/24 10/15/24 10/15/24 08:15 08:18 10:32 Sodium Potassium Chloride Carbon Dioxide Anion Gap BUN Creatinine Estim Creat Clear Calc Estimated GFR POC Glucose 184 H Random Glucose Estimat Average Glucose Hemoglobin A1c % Calcium Magnesium Total Bilirubin AST ALT Alkaline Phosphatase Troponin I High Sens 2.8 < 2.7 Total Protein Albumin Triglycerides Cholesterol LDL Cholesterol, Calc HDL Cholesterol Vitamin B12 Folate [facility] 10/15/24 10/15/24 10/15/24 12:14 17:06 21:11 Sodium Potassium Chloride Carbon Dioxide Anion Gap BUN Creatinine Estim Creat Clear Calc Estimated GFR POC Glucose 257 H 261 H 225 H Random Glucose Estimat Average Glucose Hemoglobin A1c % Calcium Magnesium Total Bilirubin AST ALT Alkaline Phosphatase Troponin I High Sens Total Protein Albumin Triglycerides Cholesterol LDL Cholesterol, Calc HDL Cholesterol Vitamin B12 Folate TSH 10/16/24 10/16/24 10/16/24 07:47 12:12 16:33 Sodium Potassium Chloride Carbon Dioxide Anion Gap BUN Creatinine Estim Creat Clear Calc Estimated GFR POC Glucose 243 H 240 H 177 H Random Glucose Estimat Average Glucose Hemoglobin A1c % Calcium Magnesium Total Bilirubin AST ALT Alkaline Phosphatase Troponin I High Sens Total Protein Albumin Triglycerides Cholesterol LDL Cholesterol, Calc HDL Cholesterol Vitamin B12 Folate [facility] 10/16/24 10/17/24 21:03 07:54 Sodium Potassium Chloride Carbon Dioxide Anion Gap BUN Creatinine Estim Creat Clear Calc Estimated GFR POC Glucose 192 H 194 H Random Glucose Estimat Average Glucose Hemoglobin A1c % Calcium Magnesium Total Bilirubin AST ALT Alkaline Phosphatase Troponin I High Sens Total Protein Albumin Triglycerides Cholesterol LDL Cholesterol, Calc HDL Cholesterol Vitamin B12 Folate TSH DS: Summary Time Spent with Patient Time attestation: Total time managing care of this patient today ____ minutes. Discharge Plan Discharge Patient Disposition: Home, Self-Care Referrals: N- Therapy [Other] - 11/02/24 3:00 pm N- Medication Management [Other] - 11/02/24 3:00 pm Physician,Unknown J [Primary Care Provider] - 1 Week Discharge Medications: Continued tramadol 50 mg tablet 100 mg PO Q8H alprazolam 2 mg tablet 2 mg PO BID zolpidem 10 mg tablet 10 mg PO BEDTIME atorvastatin 80 mg tablet 80 mg PO BEDTIME 30 Days Qty: 30 0RF isosorbide mononitrate 30 mg tablet extended release 24 hr 30 mg PO DAILY 30 Days Qty: 30 0RF enalapril maleate 2.5 mg tablet 2.5 mg PO DAILY 30 Days Qty: 30 0RF aspirin 81 mg tablet,delayed release (DR/EC) 81 mg PO DAILY 30 Days Qty: 30 0RF nitroglycerin 0.4 mg tablet, sublingual 0.4 mg sublingual Q5M PRN (Reason: chest pain) 30 Days Qty: 30 0RF Rx Instructions: do not exceed 3 doses per episode metoprolol tartrate 25 mg tablet 25 mg PO BID 30 Days Qty: 60 0RF pregabalin 150 mg capsule 150 mg PO BID 30 Days Qty: 60 0RF sennosides [senna] 8.6 mg tablet 17.2 mg PO BEDTIME 30 Days Qty: 60 0RF ondansetron HCl 4 mg tablet 4 mg PO Q8H PRN (Reason: nausea/vomiting) 30 Days Qty: 30 0RF famotidine 40 mg tablet 40 mg PO BEDTIME 30 Days Qty: 30 0RF pantoprazole 40 mg tablet,delayed release (DR/EC) 40 mg PO DAILY 30 Days Qty: 30 0RF melatonin 5 mg tablet 10 mg PO BEDTIME 30 Days Qty: 60 0RF insulin glargine [Lantus Solostar U-100 Insulin] 100 unit/mL (3 mL) insulin pen 44 unit subcut DAILY 30 Days Qty: 13.2 0RF Rx Instructions: Quantity: 5 pens Changed aripiprazole 15 mg tablet 15 mg PO DAILY 30 Days Qty: 30 0RF Discontinued acetaminophen 500 mg tablet 1,000 mg PO Q8H lidocaine 5 % adhesive patch,medicated topical DAILY doxepin 150 mg capsule 150 mg PO BEDTIME escitalopram oxalate 20 mg tablet 20 mg PO QAM bupropion HCl 150 mg tablet extended release 24 hr 150 mg PO QAM Discharge Orders: Discharge Order (Routine); Ordered 10/17/24 Ordered By: Rogelio Saldivar Diet: Diabetic diet Activity on Discharge: As tolerated Stand Alone Forms: Patient Portal Discharge page, Community Support Print Language: Indian Care Plan Goals: Maintain mood and safe behaviors Take medications as prescribed Continue to pursue sobriety Practice coping skills Continue with outpatient providers and reach out to them as needed Health Concerns: Mood stability and behaviors Plan of Treatment: Follow up with your PCP, psychiatric provider and other outpatient providers regarding above concerns Take medications as prescribed Assessment: Risk assessment at time of discharge:? Patient was interviewed prior to discharge and found to be fully oriented and without any SI or HI. Patient has improved insight and judgment and wants to continue treatment. Patient is not in imminent risk of harm to self or others and has a safety plan that includes presenting to the closest ER or calling 911 if feeling unsafe.? Patient has been observed closely by nursing and unit staff throughout admission; patient has not engaged in any behaviors that suggest dangerousness to self or others and has demonstrated appropriate behaviors and impulse control
--- NOTE | 2024-10-17 10:18 | PM.PSYDC ---
DS: Providers Provider Date of Service: 10/17/24 Date of admission: 10/13/24 22:32 Date of discharge: 10/17/24 Primary care physician: Anastacia Physician Attending physician on admission: Hortencia Katz Consults: 10/13/24 23:20 Consult to Hospitalist Routine Comment: Consulting Provider: [facility] [place] Hospitalists Reason For Exam: medical H&P Consult to Wound Care Routine Reason for consultation: open wound Has provider been notified: Yes Attending physician on discharge: Shay Anderson DS: Diagnosis Discharge Diagnosis (1) Medical clearance for psychiatric admission: Status: Acute DS: Medications Discharge Medications Home Medications: Home Medications ?Medication ?Instructions ?Recorded ?Confirmed alprazolam 2 mg tablet 2 mg PO BID 10/14/24 10/14/24 tramadol 50 mg tablet 100 mg PO Q8H 10/14/24 10/14/24 zolpidem 10 mg tablet 10 mg PO BEDTIME 10/14/24 10/14/24 Previous Rx's ?Medication ?Instructions ?Recorded aripiprazole 15 mg tablet 15 mg PO DAILY 30 days #30 tabs 10/16/24 aspirin 81 mg tablet,delayed 81 mg PO DAILY 30 days #30 tabs 10/16/24 release atorvastatin 80 mg tablet 80 mg PO BEDTIME 30 days #30 tabs 10/16/24 enalapril maleate 2.5 mg tablet 2.5 mg PO DAILY 30 days #30 tabs 10/16/24 isosorbide mononitrate 30 mg 30 mg PO DAILY 30 days #30 tabs 10/16/24 tablet,extended release 24 hr metoprolol tartrate 25 mg tablet 25 mg PO BID blood pressure 30 10/16/24 days #60 tabs nitroglycerin 0.4 mg sublingual 0.4 mg sublingual Q5M PRN chest 10/16/24 tablet pain 30 days #30 tabs pregabalin 150 mg capsule 150 mg PO BID 30 days #60 caps 10/16/24 blood sugar diagnostic (FreeStyle #50 ea 10/17/24 Lite Strips) blood-glucose meter (FreeStyle #1 ea 10/17/24 System Kit) famotidine 40 mg tablet 40 mg PO BEDTIME 30 days #30 tabs 10/17/24 insulin glargine 100 unit/mL (3 44 unit (0.44 mL) subcut DAILY 30 10/17/24 mL) subcutaneous pen (Lantus days #13.2 mL Solostar U-100 Insulin) lancets 28 gauge (FreeStyle #100 ea 10/17/24 Lancets) melatonin 5 mg tablet 10 mg (2 x 5 mg) PO BEDTIME 30 10/17/24 days #60 tabs ondansetron HCl 4 mg tablet 4 mg PO Q8H PRN nausea/vomiting 10/17/24 days #30 tabs pantoprazole 40 mg tablet,delayed 40 mg PO DAILY 30 days #30 tabs 10/17/24 release pen needle, diabetic 32 gauge x #50 ea 10/17/24 (Ultra Thin Pen Needle) sennosides 8.6 mg tablet (senna) 17.2 mg (2 x 8.6 mg) PO BEDTIME 10/17/24 days #60 tabs Data Data Completed and Pending Completed studies during hospitalization [Text1]: 10/14/24 10/14/24 10/14/24 07:35 07:50 12:14 Sodium 139 Potassium 4.5 Chloride 109 H Carbon Dioxide 23 Anion Gap 12 BUN 12 Creatinine 0.91 Estim Creat Clear Calc 99.9 Estimated GFR > 60 POC Glucose 135 H 200 H Random Glucose 154 H Estimat Average Glucose 143 Hemoglobin A1c % 6.6 H Calcium 8.8 D Magnesium 2.0 Total Bilirubin 0.3 AST 62 H ALT 110 H Alkaline Phosphatase 169 H Troponin I High Sens Total Protein 7.0 Albumin 3.5 Triglycerides 179 H Cholesterol 126 LDL Cholesterol, Calc 56 HDL Cholesterol 35 L Vitamin B12 895 Folate 9.9 TSH 2.04 10/14/24 10/14/24 10/14/24 16:59 19:18 20:37 Sodium Potassium Chloride Carbon Dioxide Anion Gap BUN Creatinine Estim Creat Clear Calc Estimated GFR POC Glucose 213 H 185 H 274 H Random Glucose Estimat Average Glucose Hemoglobin A1c % Calcium Magnesium Total Bilirubin AST ALT Alkaline Phosphatase Troponin I High Sens Total Protein Albumin Triglycerides Cholesterol LDL Cholesterol, Calc HDL Cholesterol Vitamin B12 Folate TSH 10/15/24 10/15/24 10/15/24 08:15 08:18 10:32 Sodium Potassium Chloride Carbon Dioxide Anion Gap BUN Creatinine Estim Creat Clear Calc Estimated GFR POC Glucose 184 H Random Glucose Estimat Average Glucose Hemoglobin A1c % Calcium Magnesium Total Bilirubin AST ALT Alkaline Phosphatase Troponin I High Sens 2.8 < 2.7 Total Protein Albumin Triglycerides Cholesterol LDL Cholesterol, Calc HDL Cholesterol Vitamin B12 Folate TSH 10/15/24 10/15/24 10/15/24 12:14 17:06 21:11 Sodium Potassium Chloride Carbon Dioxide Anion Gap BUN Creatinine Estim Creat Clear Calc Estimated GFR POC Glucose 257 H 261 H 225 H Random Glucose Estimat Average Glucose Hemoglobin A1c % Calcium Magnesium Total Bilirubin AST ALT Alkaline Phosphatase Troponin I High Sens Total Protein Albumin Triglycerides Cholesterol LDL Cholesterol, Calc HDL Cholesterol Vitamin B12 Folate TSH 10/16/24 10/16/24 10/16/24 07:47 12:12 16:33 Sodium Potassium Chloride Carbon Dioxide Anion Gap BUN Creatinine Estim Creat Clear Calc Estimated GFR POC Glucose 243 H 240 H 177 H Random Glucose Estimat Average Glucose Hemoglobin A1c % Calcium Magnesium Total Bilirubin AST ALT Alkaline Phosphatase Troponin I High Sens Total Protein Albumin Triglycerides Cholesterol LDL Cholesterol, Calc HDL Cholesterol Vitamin B12 Folate TSH 10/16/24 10/17/24 21:03 07:54 Sodium Potassium Chloride Carbon Dioxide Anion Gap BUN Creatinine Estim Creat Clear Calc Estimated GFR POC Glucose 192 H 194 H Random Glucose Estimat Average Glucose Hemoglobin A1c % Calcium Magnesium Total Bilirubin AST ALT Alkaline Phosphatase Troponin I High Sens Total Protein Albumin Triglycerides Cholesterol LDL Cholesterol, Calc HDL Cholesterol Vitamin B12 Folate TSH DS: Summary Hospital Course Hospital Course: HPI: Pt is 54 yo male, with SI,HI, AH,, CAD s/p CABG in 2012, HTN, HLD, peripheral artery disease, insulin-dependent type 2 diabetes, peripheral neuropathy, hx diabetic foot ulcer w/osteomyelitis s/p multiple toe amputations. At [facility], Pt underwent 2nd toe augmentation of right foot and completed antibiotic course while in the hospital. Computer spares scheduler used. Pt met with tw and team. When asked how can the team be helpful, I have an appt on Friday with court and I will be arrested if I don't go to the appt. I am in my 5 senses I am not suicidal I am fully aware . Pt reports being in pt at [facility] with a foot injury and infection. Pt reports by history he has a severe temper and verbalized HI. As a result he works with his MD, Dr. Nino, takes medications and states this sx is in proper control. Reports some depressive sx prior to transfer, I take psychiatric medications and they are effective. Pt is a vague historian. He does express interest in community resources upon discharge. Hospital course: Increase Abilify to 15 mg daily as done at [facility] 10/15 pt reports that he's good and feeling much better. He denies any SI and says he was never actually suicidal. Denies any HI or AVH. Pt says he's sleeping good and expresses much thanks for the help received from staff. Pt asks for discharge, saying he has a court case early Friday. He agrees to DC this Friday. 10/16: Met with patient; discussed with nursing; seen w/ service station manager#[id number]. consistent with recent documentation, patient remained eager for discharge, having a court date on Friday10/18/2024. Reluctant to discuss details regarding the case, except if he does not attend he will get arrested but is also not serious . Denies Depression, SI, psychosis. Reports sleep energy and appetite good. No med concerns. ongoing agreement around discharge tomorrow Friday10/17/24. Would like medications sent to [facility]. Reports having follow-up appointment on 11/02/2024. appearing improved -wanted to dc on Lantus only. Pt has a 3day notice coming due; he is future oriented and wants to attend Court on 10/18/23. Pt is at baseline and symptoms that lead to admission remain fully resolved and he denies any SI/HI or AVH; he is in good behavioral and impulse control and appropriate with peers/staff. Pt has remained stable; he is not in imminent risk of harm to self or others; his request for dc honored Time spent discussing smoking cessation with patient: 3 to 10 minutes Status at Discharge Functional status at discharge: independent ambulation Overall status at discharge: patient is back to baseline Time Spent with Patient Time attestation: Total time managing care of this patient today __40__ minutes. 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 Referrals: [facility]- Therapy [Other] - 11/02/24 3:00 pm [facility]- Medication Management [Other] - 11/02/24 3:00 pm Physician,Unknown J [Primary Care Provider] - 1 Week Discharge Medications: New (DME) FreeStyle Lite Strips Strip See Rx Instructions .Route Qty: 50 0RF Rx Instructions: As directed: use daily in the morning to test blood sugar (DME) lancets [FreeStyle Lancets] 28 gauge misc See Rx Instructions .Route Qty: 100 0RF Rx Instructions: As directed: use daily in the morning to check blood glucose (DME) pen needle, diabetic [Ultra Thin Pen Needle] 32 gauge x 5/32 needle See Rx Instructions .Route Qty: 50 0RF Rx Instructions: As directed: use once daily in the morning to administer insulin (DME) blood-glucose meter [FreeStyle System Kit] Kit See Rx Instructions .Route Qty: 1 0RF Rx Instructions: As directed: use daily in the morning to check blood glucose Continued tramadol 50 mg tablet 100 mg PO Q8H alprazolam 2 mg tablet 2 mg PO BID zolpidem 10 mg tablet 10 mg PO BEDTIME atorvastatin 80 mg tablet 80 mg PO BEDTIME 30 Days Qty: 30 0RF isosorbide mononitrate 30 mg tablet extended release 24 hr 30 mg PO DAILY 30 Days Qty: 30 0RF enalapril maleate 2.5 mg tablet 2.5 mg PO DAILY 30 Days Qty: 30 0RF aspirin 81 mg tablet,delayed release (DR/EC) 81 mg PO DAILY 30 Days Qty: 30 0RF nitroglycerin 0.4 mg tablet, sublingual 0.4 mg sublingual Q5M PRN (Reason: chest pain) 30 Days Qty: 30 0RF Rx Instructions: do not exceed 3 doses per episode metoprolol tartrate 25 mg tablet 25 mg PO BID 30 Days Qty: 60 0RF pregabalin 150 mg capsule 150 mg PO BID 30 Days Qty: 60 0RF sennosides [senna] 8.6 mg tablet 17.2 mg PO BEDTIME 30 Days Qty: 60 0RF ondansetron HCl 4 mg tablet 4 mg PO Q8H PRN (Reason: nausea/vomiting) 30 Days Qty: 30 0RF famotidine 40 mg tablet 40 mg PO BEDTIME 30 Days Qty: 30 0RF pantoprazole 40 mg tablet,delayed release (DR/EC) 40 mg PO DAILY 30 Days Qty: 30 0RF melatonin 5 mg tablet 10 mg PO BEDTIME 30 Days Qty: 60 0RF insulin glargine [Lantus Solostar U-100 Insulin] 100 unit/mL (3 mL) insulin pen 44 unit subcut DAILY 30 Days Qty: 13.2 0RF Rx Instructions: Quantity: 5 pens Changed aripiprazole 15 mg tablet 15 mg PO DAILY 30 Days Qty: 30 0RF Discontinued acetaminophen 500 mg tablet 1,000 mg PO Q8H lidocaine 5 % adhesive patch,medicated topical DAILY doxepin 150 mg capsule 150 mg PO BEDTIME escitalopram oxalate 20 mg tablet 20 mg PO QAM bupropion HCl 150 mg tablet extended release 24 hr 150 mg PO QAM Discharge Orders: Discharge Order (Routine); Ordered 10/17/24 Ordered By: Rogelio Saldivar Diet: Diabetic diet Activity on Discharge: As tolerated Stand Alone Forms: Patient Portal Discharge page, Community Support Print Language: Armenian Care Plan Goals: Maintain mood and safe behaviors Take medications as prescribed Continue to pursue sobriety Practice coping skills Continue with outpatient providers and reach out to them as needed Health Concerns: Mood stability and behaviors CAD s/p CABG in 2012 HTN HLD peripheral artery disease insulin-dependent type 2 diabetes peripheral neuropathy Chronic diabetic foot ulcer (w/osteomyelitis s/p multiple toe amputations) GERD Plan of Treatment: Follow up with your PCP, psychiatric provider and other outpatient providers regarding above concerns Take medications as prescribed Assessment: Risk assessment at time of discharge:? Patient was interviewed prior to discharge and found to be fully oriented and without any SI or HI. Patient has improved insight and judgment and wants to continue treatment. Patient is not in imminent risk of harm to self or others and has a safety plan that includes presenting to the closest ER or calling 911 if feeling unsafe.? Patient has been observed closely by nursing and unit staff throughout admission; patient has not engaged in any behaviors that suggest dangerousness to self or others and has demonstrated appropriate behaviors and impulse control
== END 2024-10-17 10:37 | disposition home or self-care (01) | DRG 751 ==
PROVIDERS: Social Worker; Admitting Provider Psychiatry & Neurology Psychiatry; Visit Provider Psychiatry & Neurology Psychiatry
DX: F33.3 Major depressive disorder, recurrent, severe with psychotic symptoms (principal); R45.851 Suicidal ideations; R45.850 Homicidal ideations; E11.42 Type 2 diabetes mellitus with diabetic polyneuropathy; I25.10 Atherosclerotic heart disease of native coronary artery without angina pectoris; I10 Essential (primary) hypertension; E78.5 Hyperlipidemia, unspecified; R07.9 Chest pain, unspecified; E11.51 Type 2 diabetes mellitus with diabetic peripheral angiopathy without gangrene; K21.9 Gastro-esophageal reflux disease without esophagitis; Z95.1 Presence of aortocoronary bypass graft; Z59.02 Unsheltered homelessness; Z79.4 Long term (current) use of insulin; Z79.899 Other long term (current) drug therapy
CPT/HCPCS: 36415; 80053; 80061; 82607; 82746; 82947; 83036; 83735; 84443; 84484; 93005

== ENCOUNTER → 2024-10-13 22:32 | Outpatient (BNV) | payer OTHER, SELFPAY | PROVIDERS: Admitting Provider Psychiatry & Neurology Psychiatry; Visit Provider Psychiatry & Neurology Psychiatry | DX: F33.2 Major depressive disorder, recurrent severe without psychotic features (principal) | CPT/HCPCS: 99232 ==

== ENCOUNTER → 2024-10-13 22:32 | Outpatient (BNV) | payer MEDICAID, SELFPAY | PROVIDERS: Admitting Provider Psychiatry & Neurology Psychiatry; Visit Provider Student in an Organized Health Care Education/Training Program | DX: Z00.8 Encounter for other general examination (principal) | CPT/HCPCS: 99222 ==

== ENCOUNTER 2024-11-17 17:45 | Emergency (ER) | payer MEDICAID, SELFPAY ==
--- NOTE | 2024-11-17 18:25 | ED.GENADULT ---
HPI - General Adult General Chief complaint: Psychiatric Symptoms Stated complaint: Med check Time Seen by Provider: 11/17/24 19:08 Source: patient, RN notes reviewed, old records reviewed and conference interpreter Mode of arrival: ambulatory Limitations: language barrier History of Present Illness ED Provider: Elijah HPI narrative: 54-year-old male past medical history significant for hyperlipidemia, hypertension, coronary artery disease status post CABG, depression presents for evaluation of depression. Patient reports increasing depression for the last several weeks. He reports that the primary reason for his depression is being homeless He states ?I need you guys to help me get off the streets before I have thoughts of ending my life. ? The patient states that currently he has no suicidal thoughts But he feels that he was being overwhelmed and may lead that way if he does not get help Related Data Home Medications ?Medication ?Instructions ?Recorded ?Confirmed alprazolam 2 mg tablet 2 mg PO BID 10/14/24 10/14/24 tramadol 50 mg tablet 100 mg PO Q8H 10/14/24 10/14/24 zolpidem 10 mg tablet 10 mg PO BEDTIME 10/14/24 10/14/24 Previous Rx's ?Medication ?Instructions ?Recorded aripiprazole 15 mg tablet 15 mg PO DAILY 30 days #30 tabs 10/16/24 aspirin 81 mg tablet,delayed 81 mg PO DAILY 30 days #30 tabs 10/16/24 release atorvastatin 80 mg tablet 80 mg PO BEDTIME 30 days #30 tabs 10/16/24 enalapril maleate 2.5 mg tablet 2.5 mg PO DAILY 30 days #30 tabs 10/16/24 isosorbide mononitrate 30 mg 30 mg PO DAILY 30 days #30 tabs 10/16/24 tablet,extended release 24 hr metoprolol tartrate 25 mg tablet 25 mg PO BID blood pressure 30 10/16/24 days #60 tabs nitroglycerin 0.4 mg sublingual 0.4 mg sublingual Q5M PRN chest 10/16/24 tablet pain 30 days #30 tabs pregabalin 150 mg capsule 150 mg PO BID 30 days #60 caps 10/16/24 blood sugar diagnostic (FreeStyle #50 ea 10/17/24 Lite Strips) blood-glucose meter (FreeStyle #1 ea 10/17/24 System Kit) famotidine 40 mg tablet 40 mg PO BEDTIME 30 days #30 tabs 10/17/24 insulin glargine 100 unit/mL (3 44 unit (0.44 mL) subcut DAILY 30 10/17/24 mL) subcutaneous pen (Lantus days #13.2 mL Solostar U-100 Insulin) lancets 28 gauge (FreeStyle #100 ea 10/17/24 Lancets) melatonin 5 mg tablet 10 mg (2 x 5 mg) PO BEDTIME 30 10/17/24 days #60 tabs ondansetron HCl 4 mg tablet 4 mg PO Q8H PRN nausea/vomiting 30 10/17/24 days #30 tabs pantoprazole 40 mg tablet,delayed 40 mg PO DAILY 30 days #30 tabs 10/17/24 release pen needle, diabetic 32 gauge x #50 ea 10/17/24 (Ultra Thin Pen Needle) sennosides 8.6 mg tablet (senna) 17.2 mg (2 x 8.6 mg) PO BEDTIME 30 10/17/24 days #60 tabs Allergies Allergy/AdvReac Type Severity Reaction Status Date / Time ibuprofen Allergy Unknown Unknown Verified 11/17/24 18:26 tuberculin, purified protein Allergy Unknown Unknown Verified 11/17/24 18:26 deriva Review of Systems Constitutional: Constitutional: Denies body ache(s), Denies chills, Denies fever(s) and Denies headache(s) Eyes: Eyes: Denies blurry vision and Denies exophthalmos ENT: Denies vertigo, Denies dizziness, Denies dry mouth and Denies headache(s) Cardiovascular: Cardiovascular: Denies chest pain and Denies dyspnea Respiratory: Respiratory: Denies cough and Denies dyspnea Gastrointestinal: Gastrointestinal: Denies abdominal pain, Denies nausea and Denies vomiting Musculoskeletal: Musculoskeletal: Denies back pain Integumentary/Breasts: Skin/Breast: Denies acne and Denies rash Neurologic: Denies vertigo, Denies dizziness and Denies headache(s) Psychiatric: Psychiatric: Denies anxiety, Reports depression and Denies suicidal ideation [facility] Past Medical History Medical History (Updated 11/17/24 @ 21:44 by Arvin Nava) Depression Skin cancer Coronary atherosclerosis of bypass graft Hypertension High cholesterol Social History Social History Household Members: None Housing: Homeless Do you presently have visiting nurse or other home services: No Alcohol intake: never Patient Tobacco Use Status: Former Tobacco user Second Hand Smoke Exposure: No Substance Use Type: Marijuana Advance Directives: No Advance Directives Information Provided: Yes Do you have a plan to hurt others: No Plan service: No Sexual orientation: Straight/Heterosexual Physical Exam ED Vital Signs: Vital Signs - 24 hr 11/17/24 18:26 Temperature 97.6 F Pulse Rate 104 H Respiratory Rate 18 Blood Pressure 135/75 Pulse Oximetry 99 Oxygen Delivery Method Room Air BMI result Body Mass Index 29.8 Const General: healthy appearing, comfortable, no acute distress, alert and awake Nutritional Appearance: well nourished Orientation/consciousness: patient oriented x3 HENMT Head: Yes normocephalic and Yes atraumatic Eyes Eyelids: Yes eyelids normal Conjunctivae: conjunctivae normal Sclerae: sclerae normal Corneas: corneas normal Pupils: Equal, round and reactive pupils present EOM: EOMs intact bilaterally Neck Neck: Yes full ROM Resp Effort & Inspection: normal respiratory effort, able to speak in complete sentences and not labored Skin General skin exam: elasticity normal Neuro General: patient oriented x3 Cranial nerves: Yes CN's II-XII intact bilaterally, Yes Equal, round and reactive pupils present and Yes Bilaterally intact EOM present Cognition (Neuro): normal cognition Extrem Other: Moving all extremities well without any obvious deformities Course Course Course Narrative: This is a Rapid Medical Exam performed in triage by Pennie Louis PA-C. Full HPI, ROS and PE to be performed by primary ED provider. 54-year-old male with a past medical history of CAD s/p bypass, HTN, depression, diabetes, HLD presenting to the ED c/o homelessness & increasing depression w/stressors at home. denies SI/HI. +THC use. denies other illicit substances PE: nontoxic appearing, acting appropriate Plan: labs, UA, HOLT, CARE team consult Medical Decision Making Medical Decision Making [facility] Narrative: 54-year-old male presents for evaluation of depression. He is not actively suicidal. His depression stems from homelessness. His medical workup is largely unremarkable, he is medically cleared for care team evaluation. Differential Diagnosis Differential Diagnoses: The differential diagnosis associated with the presentation includes Depression Homelessness Medication noncompliance Suicidal ideation Substance abuse Lab Data [facility] Lab Attestation statement: I reviewed the patient's lab results. No leukocytosis or significant anemia. Normal platelet count. No electrolyte abnormalities warranting intervention. The patient's random glucose is elevated to 233. He has a known history of diabetes. There was no evidence of DKA 11/17/24 19:29 11/17/24 19:29 Labs: Lab Results 11/17/24 11/17/24 Range/Units 19:19 19:29 WBC 7.5 (4.8-10.8) X10*3/uL RBC 4.56 L (4.60-5.80) X10*6/uL Hgb 15.0 (14.0-18.0) g/dl Hct 41.9 L (42.0-52.0) % MCV 91.9 (80.0-98.0) fL MCH 32.9 (27.0-33.0) pg MCHC 35.8 (31.0-36.0) g/dl RDW 13.5 (11.0-16.0) % Plt Count 252 (160-400) X10*3/uL MPV 8.9 L (9.4-12.4) fL Immature Gran % (Auto) 0.3 (0.0-0.4) % Neut % (Auto) 72.6 (45-73) % Lymph % (Auto) 18.1 L (20-40) % Stearns % (Auto) 7.8 (2-11) % Eos % (Auto) 1.1 (0-4) % Baso % (Auto) 0.1 (0-2) % Lymph # (Auto) 1.4 (1.2-4.9) X10*3/uL Stearns # (Auto) 0.6 (0.1-1.2) X10*3/uL Eos # (Auto) 0.1 (0.0-0.4) X10*3/uL Baso # (Auto) 0.0 (0.0-0.2) X10*3/uL Abs Immat Gran (auto) 0.02 (0.00-0.03) X10*3/uL Absolute Neuts (auto) 5.5 (2.0-8.3) x10*3/uL Absolute Nucleated RBC 0.000 (0.0-0.012) X10*3/uL Nucleated RBC % (auto) 0.0 (0.0-0.2) /100WBC Sodium 138 (135-145) mmol/L Potassium 3.6 (3.3-5.1) mmol/L Chloride 109 H (96-108) mmol/L Carbon Dioxide 23 (22-29) mmol/L Anion Gap 10 L (12-20) BUN 10 (9-16) mg/dL Creatinine 0.91 (0.5-1.4) mg/dL Estim Creat Clear Calc 101.3 Estimated GFR > 60 Random Glucose 233 H (60-115) mg/dL Calcium 8.9 (8.4-10.2) mg/dL Magnesium 2.0 (1.6-2.6) mg/dL Total Bilirubin 0.4 (0.0-1.0) mg/dL Direct Bilirubin 0.1 (0.0-0.5) mg/dL AST 22 (5-37) U/L ALT 26 (0-40) U/L Alkaline Phosphatase 128 H (39-117) U/L Total Protein 7.1 (6.5-8.0) g/dL Albumin 3.7 (3.5-5.0) g/dL Urine Opiates Screen Not Detected (Not Detect) Ur Buprenorphine Scrn Not Detected (Not Detect) ng/mL Ur Oxycodone Screen Not Detected (Not Detect) ng/mL Urine Methadone Screen Not Detected (Not Detect) ng/mL Urine Fentanyl Screen Not Detected (Not Detect) Ur Barbiturates Screen Not Detected (Not Detect) Ur Phencyclidine Scrn Not Detected (Not Detect) Ur Amphetamines Screen Not Detected (Not Detect) U Benzodiazepines Scrn Not Detected (Not Detect) Urine Cocaine Screen Not Detected (Not Detect) U Marijuana (THC) Screen POSITIVE H (Not Detect) Ethyl Alcohol < 10 mg/dL Influenza Type A (PCR) NEGATIVE (Negative) Influenza Type B (PCR) NEGATIVE (Negative) RSV RNA Qual (PCR) NEGATIVE (Negative) SARS-CoV-2 RNA (RT-PCR) NEGATIVE (Negative) Discharge Plan Discharge Clinical Impression: Depression Patient Disposition: Still a Patient Prescriptions: No Action tramadol 50 mg tablet 100 mg PO Q8H alprazolam 2 mg tablet 2 mg PO BID zolpidem 10 mg tablet 10 mg PO BEDTIME atorvastatin 80 mg tablet 80 mg PO BEDTIME 30 Days Qty: 30 0RF isosorbide mononitrate 30 mg tablet extended release 24 hr 30 mg PO DAILY 30 Days Qty: 30 0RF enalapril maleate 2.5 mg tablet 2.5 mg PO DAILY 30 Days Qty: 30 0RF aspirin 81 mg tablet,delayed release (DR/EC) 81 mg PO DAILY 30 Days Qty: 30 0RF nitroglycerin 0.4 mg tablet, sublingual 0.4 mg sublingual Q5M PRN (Reason: chest pain) 30 Days Qty: 30 0RF Rx Instructions: do not exceed 3 doses per episode aripiprazole 15 mg tablet 15 mg PO DAILY 30 Days Qty: 30 0RF metoprolol tartrate 25 mg tablet 25 mg PO BID 30 Days Qty: 60 0RF pregabalin 150 mg capsule 150 mg PO BID 30 Days Qty: 60 0RF sennosides [senna] 8.6 mg tablet 17.2 mg PO BEDTIME 30 Days Qty: 60 0RF ondansetron HCl 4 mg tablet 4 mg PO Q8H PRN (Reason: nausea/vomiting) 30 Days Qty: 30 0RF famotidine 40 mg tablet 40 mg PO BEDTIME 30 Days Qty: 30 0RF pantoprazole 40 mg tablet,delayed release (DR/EC) 40 mg PO DAILY 30 Days Qty: 30 0RF melatonin 5 mg tablet 10 mg PO BEDTIME 30 Days Qty: 60 0RF insulin glargine [Lantus Solostar U-100 Insulin] 100 unit/mL (3 mL) insulin pen 44 unit subcut DAILY 30 Days Qty: 13.2 0RF Rx Instructions: Quantity: 5 pens (DME) FreeStyle Lite Strips Strip See Rx Instructions .Route Qty: 50 0RF Rx Instructions: As directed: use daily in the morning to test blood sugar (DME) lancets [FreeStyle Lancets] 28 gauge misc See Rx Instructions .Route Qty: 100 0RF Rx Instructions: As directed: use daily in the morning to check blood glucose (DME) pen needle, diabetic [Ultra Thin Pen Needle] 32 gauge x 5/32 needle See Rx Instructions .Route Qty: 50 0RF Rx Instructions: As directed: use once daily in the morning to administer insulin (DME) blood-glucose meter [FreeStyle System Kit] Kit See Rx Instructions .Route Qty: 1 0RF Rx Instructions: As directed: use daily in the morning to check blood glucose Print Language: French
[2024-11-17 18:26] VITALS: BP 135/75; PULSE 104; RESP 18; TEMP 36.4; O2SAT 99; BMI 29.8
[2024-11-17 19:36] LABS: Amphetamine Screen Urine Not Detected (Not Detect); Barbiturates, Urine Not Detected (Not Detect); Benzodiazepines Screen Urine Not Detected (Not Detect); Buprenorphine Scr Not Detected (Not Detect); Cannabinoid Screen Urine POSITIVE (Not Detect); Cocaine Screen Urine Not Detected (Not Detect); Fentanyl, urine Not Detected (Not Detect); Methadone Screen, Urine Not Detected (Not Detect); Opiate Screen Urine Not Detected (Not Detect); Oxycodone Screen Urine Not Detected (Not Detect); Phencyclidine Screen Urine Not Detected (Not Detect)
[2024-11-17 19:38] LABS: MANUAL DIFF FLAG NO
[2024-11-17 19:39] LABS: Basophils Percent Auto 0.1 % (0-2); Eosinophils Absolute Auto 0.1 X10*3/uL (0.0-0.4); Eosinophils Percent Auto 1.1 % (0-4); Hematocrit 41.9 % (42.0-52.0); Imm Gran Abs Auto 0.02 X10*3/uL (0.00-0.03); Imm Gran Pct Auto 0.3 % (0.0-0.4); Lymphocytes Absolute Auto 1.4 X10*3/uL (1.2-4.9); Lymphocytes Percent Auto 18.1 % (20-40); Mean Corpuscular HGB Conc 35.8 g/dl (31.0-36.0); Mean Corpuscular Hemoglobin 32.9 pg (27.0-33.0); Mean Corpuscular Volume 91.9 fL (80.0-98.0); Mean Platelet Volume 8.9 fL (9.4-12.4); Monocytes Absolute Auto 0.6 X10*3/uL (0.1-1.2); Monocytes Percent Auto 7.8 % (2-11); Neutrophils Absolute Auto 5.5 x10*3/uL (2.0-8.3); Neutrophils Percent Auto 72.6 % (45-73); Platelet Count 252 X10*3/uL (160-400); Red Blood Count 4.56 X10*6/uL (4.60-5.80); Red Cell Distribution Width 13.5 % (11.0-16.0); White Blood Count 7.5 X10*3/uL (4.8-10.8)
--- OUTSIDE RECORDS SUMMARY | 2024-11-17 19:40 | XMS_ITS | Encounter Summary ---
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 needs. Patient is able to advocate for himself. Risk Factors: Patient has unstable housing when he and his partner argue/break up. Patient struggles with emotional regulation. Patient has unresolved trauma. Suicide Risk: Based on patient's history and current presentation, their level of risk for intentional lethal harm is considered Low Interventions: Risk/crisis assessment, active listening, empathetic listening Response to interventions: Patient was cooperative, engaged, and aligned with speaking with S. DSM-5TR Diagnosis: F33.3 Major Depression, recurrent, severe F33.10 PTSD Plan: Based on the information above, patient is clear to discharge from behavioral health services. Upondischarge, patient would benefit from following up with his therapist and psychiatrist as well as look into community supports for housing. Recommendations were discussed with requesting provider. It was a pleasure to assist Bunny Woody here at [facility]. This report is written and finalized by: Justen Andrews Behavioral Health Specialist [facility] (Tel): [phone] / : [phone] documented in this encounter Plan of Treatment Upcoming Encounters Date Type Department Care Team (Late st Contact Info) Description 01/10/2025 2:45 PM EDT Office Visit Orthopedic Surgery - [place] [id number] [phone] Cory Lama, DPM [address] [address] Pending Results Name Type Priority Associated Diagnoses Date /Time Blood Culture, Peripheral Draw #1 Microbiology STAT 11/16/2024 7: 19 PM EST Blood Culture, Peripheral Draw #2 Microbiology STAT 11/16/2024 7: 19 PM EST documented as of this encounter Procedures Procedure Name Priority Date/Time Associated Diagnosis Comments POCT GLUCOSE BLOOD Routine 11/17/2024 7: 51 AM EST CBC WITH AUTO DIFFERENTIAL STAT 11/16/2024 9:37 PM EST CBC AND DIFFERENTIAL STAT 11/16/2024 9:37 PM EST ECG 12-LEAD STAT 11/16/2024 8:48 PM EST DRUG ABUSE SCREEN 8A PANEL, URINE STAT 11/16/2024 8:30 PM EST BUPRENORPHINE SCREEN, URINE STAT 11/16/2024 8:30 PM EST METHADONE SCREEN, URINE STAT 11/16/2024 8:30 PM EST PHENCYCLIDINE, URINE STAT 11/16/2024 8:30 PM EST LACTATE, WITH REFLEX STAT 11/16/2024 7:19 PM EST CULTURE BLOOD STAT 11/16/2024 7:19 PM EST CULTURE BLOOD STAT 11/16/2024 7:19 PM EST SEDIMENTATION RATE STAT 11/16/2024 7: 19 PM EST C-REACTIVE PROTEIN STAT 11/16/2024 7: 19 PM EST ETHANOL STAT Add-on 11/16/2024 7:19 PM EST ACETAMINOPHEN LEVEL STAT Add-on 11/16/2024 7 :19 PM EST SALICYLATE LEVEL STAT Add-on 11/16/2024 7:19 PM EST BASIC METABOLIC PANEL STAT Add-on 11/16/2024 7:19 PM EST documented in this encounter Results * (ABNORMAL) POCT Glucose, blood (11/17/2024 7:51 AM EST) [facility] Glucose POCT 223(H) 70 - 100 mg/dL 11/17/2024 7:51 AM EST [facility] Blood Capillary blood specimen / Unknown 11/17/2024 7:51 AM EST 11/17/2024 7:52 AM EST us Scot Juan Grubbs MD LAB POINT OF CARE TE ST DOCKED DEVICE UNSOLICITED RESULTS Final Result [facility] [address] [place] [address], [place] [phone] * (ABNORMAL) CBC auto differential (11/16/2024 9:37 PM EST) [facility] WBC 10.2 4.8 - 10.8 K/[facility] LAB HEMETOLOGY METHOD 11/16/2024 10:43 PM EST [facility] RBC 4.30(L) 4.50 - 5.50 M/mcL LAB HEMETOLOGY METHOD 11/16/2024 10:43 PM [facility] Hemoglobin 14.2 13.5 - 17.5 g/dL LAB HEMETOLOGY METHOD 11/16/2024 10:43 PM [facility] Hematocrit 42.1 42.0 - 54.0 % LAB HEMETOLOGY METHOD 11/16/2024 10:43 PM [facility] MCV 97.5 79.0 - 98.0 FL LAB HEMETOLOGY METHOD 11/16/2024 10:43 PM [facility] MCH 32.9(H) 27.0 - 32.0 pcg LAB HEMETOLOGY METHOD 11/16/2024 10:43 PM [facility] MCHC 33.7 32.0 - 37.0 g/dL LAB HEMETOLOGY METHOD 11/16/2024 10:43 PM [facility] RDW 13.6 11.0 - 15.0 % LAB HEMETOLOGY METHOD 11/16/2024 10:43 PM [facility] Platelets 257 130 - 400 K/mcL LAB HEMETOLOGY METHOD 11/16/2024 10:43 PM [facility] MPV 9.7 7.0 - 11.0 FL LAB HEMETOLOGY METHOD 11/16/2024 10:43 PM [facility] NRBC 0.0 <1.0 % LAB HEMETOLOGY METHOD 11/16/2024 10:43 PM [facility] NRBC Absolute 0.00 <0.10 K/mcL LAB HEMETOLOGY METHOD 11/16/2024 10:43 PM [facility] Neutrophils Relative 76.2 % LAB HEMETOLOGY METHOD 11/16/2024 10:43 PM [facility] Lymphocytes Relative 15.1 % LAB HEMETOLOGY METHOD 11/16/2024 10:43 PM [facility] Monocytes Relative 7.3 % LAB HEMETOLOGY METHOD 11/16/2024 10:43 PM [facility] Eosinophils Relative 0.7 % LAB HEMETOLOGY METHOD 11/16/2024 10:43 PM [facility] Basophils Relative 0.1 % LAB HEMETOLOGY METHOD 11/16/2024 10:43 PM [facility] Immature Granulocytes Relative 0.6 % LAB HEMETOLOGY METHOD 11/16/2024 10:43 PM [facility] Neutrophils Absolute 7.75(H) 1.50 - 7.00 K/mcL LAB HEMETOLOGY METHOD 11/16/2024 10:43 PM [facility] Lymphocytes Absolute 1.53 1.00 - 5.00 K/mcL LAB HEMETOLOGY METHOD 11/16/2024 10:43 PM [facility] Monocytes Absolute 0.74 0.20 - 1.00 K/mcL LAB HEMETOLOGY METHOD 11/16/2024 10:43 PM [facility] Eosinophils Absolute 0.07 0.00 - 0.50 K/mcL LAB HEMETOLOGY METHOD 11/16/2024 10:43 PM [facility] Basophils Absolute 0.01 0.00 - 0.20 K/mcL LAB HEMETOLOGY METHOD 11/16/2024 10:43 PM [facility] Immature Granulocytes Absolute 0.06(H) 0.00 - 0.03 K/mcL LAB HEMETOLOGY METHOD 11/16/2024 10:43 PM [facility] Blood Venous blood specimen / Unknown Venipuncture / Unknown 11/16/2024 9:37 PM EST 11/16/2024 10:33 PM EST us Omar Perez MD LAB BLOOD ORDERABLES Final Resu lt [facility] [address] [place] [address], [place] [phone] * ECG 12 lead (11/16/2024 8:48 PM EST) Ventricular Rate ECG 59 BPM GEMUSE Atrial Rate 59 BPM GEMUSE P-R Interval 120 ms GEMUSE QRS Duration 88 ms GEMUSE Q-T Interval 410 ms GEMUSE QTc 405 ms GEMUSE P Wave [place] 6 degrees GEMUSE R [place] 15 degrees GEMUSE T [place] 92 degrees GEMUSE ECG Interpretation Sinus bradycardia When compared with ECG of 05-OCT-2024 00:28, No significant change was found Confirmed by MALLY SERRA ([id number]) on 11/17/2024 7:41:44 AM GEMUSE 11/16/2024 8:48 PM EST 11/17/2024 7:41 AM EST us Omar Perez MD ECG ORDERABLES Final Result Performing Organization Address [facility] Co de Phone Number GEMUSE * Methadone, urine (11/16/2024 8:30 PM EST) Pathologist [facility] Methadone Screen, Urine Negative Negative LAB CHEMISTRY METHOD 11/16/2024 9:20 PM EST [facility] Comment: Assay cutoff 300 ng/mL Semi-quantitative assay for screening purposes only. Unconfirmed screening result should not be used for non-medical purposes. *ALTERNATE METHOD CONFIRMATION DONE UPON REQUEST ONLY* Urine Urine specimen obtained by clean catch procedure / Unknown Non-blood Collection / Unknown 11/16/2024 8:30 PM EST 11/16/2024 8:45 PM EST us Omar Perez MD LAB URINE ORDERABLES Final Resu lt Performing Organization Address [facility]/ZIP Co de Phone Number [facility] [address] [place] [address], [place] [phone] * Phencyclidine, urine (11/16/2024 8:30 PM EST) PCP Scrn, Ur Negative Negative LAB CHEMISTRY METHOD 11/16/2024 9:20 PM EST [facility] Comment: Assay cutoff 25 ng/mL Semi-quantitative assay for screening purposes only. Unconfirmed screening result should not be used for non-medical purposes. *ALTERNATE METHOD CONFIRMATION DONE UPON REQUEST ONLY* Urine Urine specimen obtained by clean catch procedure / Unknown Non-blood Collection / Unknown 11/16/2024 8:30 PM EST 11/16/2024 8:45 PM EST Omar Perez MD LAB URINE ORDERABLES Final Resu lt Performing Organization Address [facility] Co de Phone Number [facility] [address] [place] [address], [place] [phone] * Buprenorphine screen, urine (11/16/2024 8:30 PM EST) Pathologist [facility] Buprenorphine Screen Urine Negative Negative LAB CHEMISTRY METHOD 11/16/2024 9:20 PM EST [facility] Urine Urine specimen obtained by clean catch procedure / Unknown Non-blood Collection / Unknown 11/16/2024 8:30 PM EST 11/16/2024 8:45 PM EST Narrative [facility] - 11/16/2024 9:20 PM EST Assay cutoff 5 ng/mL Semi-quantitative assay for screening purposes only. Unconfirmed screening result should not be used for non-medical purposes. *ALTERNATE METHOD CONFIRMATION DONE UPON REQUEST ONLY* Omar Perez MD LAB URINE ORDERABLES Final Resu lt Performing Organization Address City/[facility]/ZIP Co de Phone Number [facility] [address] [place] [address], [place] [phone] * (ABNORMAL) Drug abuse screen 8a panel, urine (11/16/2024 8:30 PM EST) Amphetamine Screen, Ur Negative Negative LAB CHEMISTRY METHOD 9:20 PM [facility] Comment:Certain OTC medicati ons containing ephedrine, phenylephrine, pseudoephedrine and phenylpropanolamine can cause false positive results. Barbiturate Screen, Ur Negative Negative LAB CHEMISTRY METHOD 5 9:20 PM [facility] Benzodiazepine Screen, Ur Negative Negative LAB CHEMISTRY METHOD 5 9:20 PM [facility] Cocaine Screen, Ur Negative Negative LAB CHEMISTRY METHOD 5 9:20 PM [facility] Opiate Screen, Ur Negative Negative LAB CHEMISTRY METHOD 5 9:20 PM [facility] Cannabinoid (THC) Screen, Ur Positive(A ) Negative LAB CHEMISTRY METHOD 5 9:20 PM [facility] Comment:Specimens from patie nts taking pantoprazole sodium (Protonix) have been shown to produce false positive results. Oxycodone Screen, Ur Negative Negative LAB CHEMISTRY METHOD 5 9:20 PM [facility] Fentanyl, Ur Negative Negative LAB CHEMISTRY METHOD 5 9:20 PM [facility] Urine Urine specimen obtained by clean catch procedure / Unknown Non-blood Collection / Unknown 11/16/2024 8:30 PM EST 11/16/2024 8:45 PM EST [facility] - 11/16/2024 9:20 PM EST Assay cutoffs: Amphetamines ? 1000 ng/mL Barbiturates ?200 ng/mL Benzodiazepines ?? 200 ng/mL Cocaine ? 300 ng/mL Fentanyl ?1 ng/mL Opiates ? 300 ng/mL Oxycodone ? 100 ng/mL THC ?50 ng/mL Semi-quantitative assay for screening purposes only. Unconfirmed screening result should not be used for non-medical purposes. *ALTERNATE METHOD CONFIRMATION DONE UPON REQUEST ONLY* Omar Perez MD LAB URINE ORDERABLES Final Resu lt [facility] [address] [place] [address], [place] [phone] * (ABNORMAL) Basic metabolic panel (11/16/2024 7:19 PM EST) Sodium 140 133 - 145 mmol/L LAB CHEMISTRY METHOD 11/16/2024 8:35 PM EST [facility] Potassium 3.9 3.5 - 5.5 mmol/L LAB CHEMISTRY METHOD 11/16/2024 8:35 PM [facility] Chloride 110 96 - 110 mmol/L LAB CHEMISTRY METHOD 11/16/2024 8:35 PM [facility] CO2 21 21 - 32 mmol/L LAB CHEMISTRY METHOD 11/16/2024 8:35 PM [facility] Anion Gap 9 3 - 11 LAB CHEMISTRY METHOD 11/16/2024 8:35 PM [facility] Glucose 127(H) 70 - 100 mg/dL LAB CHEMISTRY METHOD 11/16/2024 8:35 PM [facility] BUN 10 5 - 25 mg/dL LAB CHEMISTRY METHOD 11/16/2024 8:35 PM [facility] Creatinine 0.89 0.70 - 1.30 mg/dL LAB CHEMISTRY METHOD 11/16/2024 8:35 PM [facility] eGFR 101 >=60 mL/min/1. 73m2 LAB CHEMISTRY METHOD 11/16/2024 8:35 PM [facility] Comment:Calculation based on the??Chronic Kidney Disease Epidemiology Collaboration (CKD-EPI) equation refit??without adjustment for race. BUN/Creatinine Ratio 11.2 LAB CHEMISTRY METHOD 11/16/2024 8:35 PM [facility] Calcium 8.8 8.5 - 10.5 mg/dL LAB CHEMISTRY METHOD 11/16/2024 8:35 PM EST [facility] Blood Venous blood specimen / Unknown Venipuncture / Unknown 11/16/2024 7:19 PM EST 11/16/2024 7:56 PM EST us Omar Perez MD LAB BLOOD ORDERABLES Final Resu lt Performing Organization Address [facility]/ZIP Co de Phone Number [facility] [address] [place] [address], [place] [phone] * (ABNORMAL) Salicylate level (11/16/2024 7:19 PM EST) Salicylate Level <1.7(L) 2.0 - 29.0 mg/dL LAB CHEMISTRY METHOD 11/16/2024 8:35 PM EST [facility] Blood Venous blood specimen / Unknown Venipuncture / Unknown 11/16/2024 7:19 PM EST 11/16/2024 7:56 PM EST us Omar Perez MD LAB BLOOD ORDERABLES Final Resu lt Performing Organization Address [facility] de Phone Number [facility] [address] [place] [address], [place] [phone] * (ABNORMAL) Acetaminophen level (11/16/2024 7:19 PM EST) Acetaminophen Level <2.0(L) 10.0 - 30.0 mcg/mL LAB CHEMISTRY METHOD 11/16/2024 8:35 PM EST [facility] Blood Venous blood specimen / Unknown Venipuncture / Unknown 11/16/2024 7:19 PM EST 11/16/2024 7:56 PM EST us Omar Perez MD LAB BLOOD ORDERABLES Final Resu lt Performing Organization Address City/[facility]/ZIP Co de Phone Number [facility] [address] [place] [address], * Ethanol (11/16/2024 7:19 PM EST) Ethanol Level 5 0 - 10 mg/dL LAB CHEMISTRY METHOD 11/16/2024 8:35 PM EST [facility] Blood Venous blood specimen / Unknown Venipuncture / Unknown 11/16/2024 7:19 PM EST 11/16/2024 7:56 PM EST us Omar Perez MD LAB BLOOD ORDERABLES Final Resu lt Performing Organization Address [facility] Co de Phone Number [facility] [address] [place] [address], * C-reactive protein (11/16/2024 7:19 PM EST) [facility] C-Reactive Protein 0.44 <=0.50 mg/dL LAB CHEMISTRY METHOD 11/16/2024 8:35 PM EST [facility] Blood Venous blood specimen / Unknown Venipuncture / Unknown 11/16/2024 7:19 PM EST 11/16/2024 7:56 PM EST us Tosha ZHANG LAB BLOOD ORDERABLES Final Resu lt Performing Organization Address [facility] Co de Phone Number [facility] [address] [place] [address], [place] [phone] * Sedimentation rate (11/16/2024 7:19 PM EST) Sed Rate 10 0 - 20 mm/hr LAB HEMETOLOGY METHOD 11/16/2024 8:04 PM EST [facility] Blood Venous blood specimen / Unknown Venipuncture / Unknown 11/16/2024 7:19 PM EST 11/16/2024 7:56 PM EST Tosha ZHANG LAB BLOOD ORDERABLES Final Resu lt Performing Organization Address City/[facility]/ZIP Co de Phone Number [facility] [address] [place] [address], [place] [phone] * Lactate, with reflex (11/16/2024 7:19 PM EST) LACTIC ACID 1.6 0.4 - 2.0 mmol/L LAB CHEMISTRY METHOD 11/16/2024 8:22 PM EST [facility] Blood Venous blood specimen / Unknown Venipuncture / Unknown 11/16/2024 7:19 PM EST 11/16/2024 7:54 PM EST Tosha ZHANG LAB BLOOD ORDERABLES Final Resu lt Performing Organization Address City/[facility]/ZIP Co de Phone Number [facility] [address] [place] [address], [place] [phone] documented in this encounter Visit Diagnoses Diagnosis Suicidal ideation- Primary Foot odor Adjustment disorder with mixed anxiety and depressed mood documented in this encounter Active and Recently Administered Medications Orders Medications Ordered That Vasile ht Not Have Been Administered Count Last Ordered Date First Ordered Date LORazepam (ATIVAN) tablet 2 mg 1 11/17/2024 Consult Count Last Ordered Date First Orde red Date IP CONSULT TO HOSPITALITY ASSOCIATE 1 11/16/2024 documented in this encounter Care Teams Aluminum Container Tester Relationship Specialty Start Date End Date Ifeanyi Pittman MD [address] [place] [address] PCP - General 08/13/22 documented as of this encounter
--- OUTSIDE RECORDS SUMMARY | 2024-11-17 19:40 | XMS_ITS ---
Author Organization [facility] Address [address] [place] [phone] Care Team Providers Care Lumber Piler Operator Name Role Phone Ifeanyi Pittman Primary Care Provider REASON FOR VISIT FYI only Social History Sex Assigned At : Social History Observation Description Sex Assigned At Male Encounters Encounter Location Date Provider Diagnosis [address] [phone] 11/03/2024 Ifeanyi Pittman Plan Of Treatment Next Appt Details Provider Name:Ifeanyi Toya, 12/03/2024 08:40:00 AM, [address] [place] [address], [phone], Progress Notes * Bunny MORALESDOB: (54 yo M)Acc No.[id number]:11/03/2024 Patient:?Oscar MORALES :1970???Age:54 Y???Sex:Male Address:[address] [place] [address] [id number] [place] [address], [phone] * true * Date:? Generated for Printi ng/Fanoég/eTransmitting on:?11/17/2024 07:39 PM EST
--- OUTSIDE RECORDS SUMMARY | 2024-11-17 19:40 | XMS_ITS | Encounter Summary ---
Author Organization [facility] Address [address] [place] [address] Care Team Providers Care Claims Adjudicator Name Role Phone Ifeanyi Pittman MD Primary Care Provider Encounter Details Date Type Department Care Team (Late Contact Info) Description 07/23/[address] [facility] - Main Lab [address] [facility] [place] [phone] Ifeanyi Pittman MD [address] [place] [address] Type 2 diabetes mellitus with diabetic neuropathy, unspecified (CMS/HCC) Social History Tobacco Use Types Packs/Day Years Used Date Smoking Tobacco: Former Smokeless Tobacco: Never Alcohol Use Standard Drinks/Week Comments Not Currently 0 (1 standard drink = 0.6 oz pur e alcohol) Sex and Gender Information Value Date Recorded Sex Assigned at Male 10/19/2024 7:30 AM EST Legal Sex Male 2:25 AM EST Gender Identity Male 10/19/2024 7:30 AM EST Sexual Orientation Straight 10/19/2024 7: 30 AM EST documented as of this encounter Plan of Treatment Upcoming Encounters Date Type Department Care Team (Late Contact Info) Description 01/10/2025 2:45 PM EDT Office Visit Orthopedic Surgery - [place] [address] [facility] [address] [place] [address] Cory Lama DPM 175 [facility] [address] [place] [address] documented as of this encounter Procedures Procedure Name Priority Date/Time Associated Diagnosis Comments MICROALBUMIN CREATININE URINE RATIO Routine 07/23/2024 10:59 AM EST Type 2 diabetes mellitus with diabetic neuropathy, unspecified (CMS/HCC) documented in this encounter Results * (ABNORMAL) Microalbumin creatinine urine ratio (07/23/2024 10:59 AM EST) Creatinine, Urine 16.0 mg/dL LAB CHEMISTRY METHOD 07/23/2024 7:19 PM EST [facility] Microalb, Ur <5.0 0.0 - 29.0 mg/L LAB CHEMISTRY METHOD 07/23/2024 7:19 PM EST [facility] Microalb/Creat Ratio <31(H) <30 mg/g creat LAB CHEMISTRY METHOD 07/23/2024 7:19 PM EST [facility] Urine Urine specimen obtained by clean catch procedure / Unknown 07/23/2024 10:59 AM EST 07/23/2024 4:47 PM EST us Ifeanyi Pittman MD LAB URINE ORDERABLES Final Re sult [facility] [address] [place] [address], documented in this encounter Visit Diagnoses Diagnosis Type 2 diabetes mellitus with diabetic neuropathy, unspecified (CMS/HCC) documented in this encounter Care Teams Claims Adjudicator Relationship Specialty Start Date End Date Ifeanyi Pittman MD [address] [place] [address] PCP - General 08/13/22 documented as of this encounter
--- OUTSIDE RECORDS SUMMARY | 2024-11-17 19:40 | XMS_ITS | Clinical Summary ---
Author Organization [address] Address [address] [place] [address] Phone Care Team Providers Care Glass Sander Name Role Phone Ifeanyi Pittman MD Primary Care Provider [phone] Allergies Active Allergy Reactions Criticality Noted Date Comments Ibuprofen 06/30/2024 Tuberculin, Purified Protein Derivative Unknown 10/02/2024 Medications metoprolol tartrate (LOPRESSOR) 25 mg tablet Take 1 tablet (25 mg total) by mouth 2 (two) times a day. Active pregabalin (LYRICA) 150 mg capsule Take 1 capsule (150 mg total) by mouth 2 (two) times a day. Max Daily Amount: 300 mg Active enalapril (VASOTEC) 2.5 mg tablet Take 1 tablet (2.5 mg total) by mouth 1 (one) time each day. Active aspirin 81 mg EC tablet Take 1 tablet (81 mg total) by mouth 1 (one) time each day. Active atorvastatin (LIPITOR) 80 mg tablet Take 1 tablet (80 mg total) by mouth 1 (one) time each day. 5 Active loratadine (CLARITIN) 10 mg tablet Take 1 tablet (10 mg total) by mouth 1 (one) time each day. Active albuterol sulfate (ProAir RespiClick) 90 mcg/actuation aerosol powdr breath activated Inhale 2 Puffs into the lungs daily as needed. Active famotidine (PEPCID) 40 mg tablet Take 1 tablet (40 mg total) by mouth at bedtime. 4 Active lidocaine (LIDODERM) 5 % patch Apply 1 patch topically 1 (one) time each day. 4 Active pantoprazole (PROTONIX) 40 mg EC tablet Take 1 tablet (40 mg total) by mouth 1 (one) time each day before breakfast. 4 Active doxepin (SINEquan) 150 mg capsule Take 1 capsule (150 mg total) by mouth at bedtime. 4 Active traMADoL (ULTRAM) 50 mg tablet Take 2 tablets (100 mg total) by mouth every 12 (twelve) hours. Max Daily Amount: 200 mg 3 Active lactulose (CHRONULAC) solution Take 30 mL (20 g total) by mouth 2 (two) times a day if needed (constipation). 5 Active senna (SENOKOT) 8.6 mg tablet Take 1 tablet (8.6 mg total) by mouth 2 (two) times a day. 60 each 11 5 026 Active Lantus Solostar U-100 Insulin 100 unit/mL (3 mL) injection pen Inject 50 Units under the skin 1 (one) time each day in the morning. 5 Active Admelog U-100 insulin lispro 100 unit/mL injection Inject 1-6 Units under the skin 4 (four) times a day (before meals and nightly) for 14 days. Inject just before meals as directed. Less than 100 mg/dl = 0 units 100-150 mg/dl=3 units 151-200 mg/dl=5 units 201-250 mg/dl=7 units 251-300 mg/dl=9 units 301-350 mg/dl=10 units 351-400 mg/dl=12 units 5 Active bisacodyL (DULCOLAX) 10 mg suppository Insert 1 suppository (10 mg total) into the rectum 1 (one) time each day if needed for constipation for up to 10 days. 5 025 oxyCODONE (ROXICODONE) 5 mg immediate release tablet Take 1-2 tablets (5-10 mg total) by mouth every 6 (six) hours if needed for moderate pain or severe pain (moderate pain or when therapies for mild pain were not effective) for up to 5 days. Max Daily Amount: 40 mg 5 025 ARIPiprazole (ABILIFY) 15 mg tablet Take 1 tablet (15 mg total) by mouth 1 (one) time each day in the morning. 30 each 5 025 acetaminophen (TYLENOL) 500 mg tablet Take 2 tablets (1,000 mg total) by mouth every 8 (eight) hours for 5 days. 5 025 levoFLOXacin (LEVAQUIN) 500 mg tablet Take 1 tablet (500 mg total) by mouth 1 (one) time each day for 10 days. 10 tablet 5 025 Active Problems Problem Noted Date Diagnosed Date Suicidal ideation 10/11/2024 Osteomyelitis 10/04/2024 Diabetic foot ulcer associat ed with type 2 diabetes mellitus 10/02/2024 Osteomyelitis of toe of right foot 10/02/2024 Diabetes mellitus 10/08/2022 Overview (06/30/2024): Diabetes mellitus Coronary artery disease 10/10/2020 Overview (06/30/2024): Last Assessment & Plan: -status post CABG in 2014 with SHARPE to the LAD, left radial to the circumflex PDA, and vein grafts to the D1 and OM1. -Stable, without ischemic symptoms -Updating stress test. -Continue aspirin, enalapril, metoprolol, and statin therapy -Continue low-salt diet Hyperlipidemia 10/10/2020 Overview (06/30/2024): Last Assessment & Plan: No recent lipid panel. Continue high intensity statin therapy. We will readdress this at next office visit. Hypertension 10/10/2020 Overview (06/30/2024): Last Assessment & Plan: 118/70 in office today, well-controlled on current therapy. Continue regimen as above. Intermittent claudication 10/10/2020 Overview (06/30/2024): Last Assessment & Plan: He continues to endorse signs and symptoms of eminent claudication. He will undergo a bilateral arterial duplex with ESTER in our office at first available. He did have 1 of these performed at [facility] in October 2020 which revealed flow- limiting stenosis affecting the SFA popliteal junction with additional stenosis suspected to affect the flow within the distal popliteal artery of the left leg. Low velocity flow was noted within the patent anterior tibial artery. Continue statin therapy. If significantly abnormal I will refer him to Dr. Nash. Syncope 10/10/2020 Overview (06/30/2024): Last Assessment & Plan: He had a syncopal episode back in September 2021. He has not had any recurrent events. I am going to update his cardiac testing with an echocardiogram and Lexiscan nuclear stress test on meds. He underwent an exercise tolerance test last year and was unable to reach his maximal predicted heart rate. He has not had a recurrent event therefore I am not going to repeat any Holter monitoring at this time. He continues to have occasional lightheadedness and dizziness. I do not believe this is secondary to it tachy or bradycardia arrhythmia. Last ejection fraction was normal. Myocardial infarction Encounters Date Type Department Care Team Description 11/16/2024 8:10 PM EST - 11/17/2024 12:06 PM [facility] Emergency [facility] Emergency [address] [place] [address] Omar Perez MD Millay, Scot A, MD Cauchon, Matthew C, Suicidal ideation (Primary Dx); Foot odor; Adjustment disorder with mixed anxiety and depressed mood Discharge Disposition: Home or Self Care 11/12/2024 Telephone Vascular Surgery - [place] [address] [place] [id number] Harvey Rhodes MD Appointment 10/19/2024 6:50 AM EST - 10/19/2024 11:50 AM [facility] Emergency [facility] Emergency [address] [place] [address] Open wound of right foot, initial encounter (Primary Dx) Discharge Disposition: Home or Self Care 10/06/2024 10:38 AM EST Anesthesia Event [facility] Main OR [address] [place] [address] Martinez Rubi DO 10/06/2024 10:23 AM EST - 10/06/2024 11:53 AM EST Surgery [facility] Main OR [address] [place] [address] Harvey Rhodes MD RIGHT 2ND TOE AMPUTATION 10/05/2024 8:32 AM EST Anesthesia Event [facility] Intermediate Care Unit [address] [place] [address] Michael Skelton MD Chang, Ling, CRNA 10/02/2024 1:57 PM EST - 10/13/2024 8:00 PM EST Hospital Encounter [facility] Medical Surgical Unit [address] [place] [address] Omar Perez MD Flores, Carlos M, MD Santoyo-Pacheco, Omar D, MD Kela, Kashyap Devendrabhai, MD Surendran, Anupama, MD Pain (Primary Dx); Diabetic ulcer of toe of right foot associated with type 2 diabetes mellitus, unspecified ulcer stage (CMS/HCC); Osteomyelitis of toe of right foot (CMS/HCC); Osteomyelitis of second toe of right foot (CMS/HCC); Severe recurrent major depression with psychotic features (CMS/HCC) [facility]position[facility] 08/27/2024 9:53 AM EST - 08/27/2024 11:59 PM EST Hospital Encounter [facility] Xray [address] [place] [address] Non-pressure chronic ulcer of other part of right foot with unspecified severity (CMS/HCC) Discharge Disposition: Home or Self Care from Last 3 Months Surgical History Surgery Date Site/Laterality Comments CORONARY ARTERY BYPASS GRAFT 2014 PROCEDURE: HISTORICAL CABG COLONOSCOPY PROCEDURE: HISTORICAL COLONOSCOPY; COMMENT: 04/22/2019 & 01/26/2019 OTHER SURGICAL HISTORY 07/12/2023 Right PROCEDURE: KS AMPUTATION METATARSAL W/TOE SINGLE OTHER SURGICAL HISTORY 07/12/2023 Left PROCEDURE: KS DEBRIDEMENT SUBCUTANEOUS TISSUE 1ST 20 SQ CM/<; COMMENT: left hallux BYPASS GRAFT 10/28/2023 Left PROCEDURE: KS AMPUTATION TOE METATARSOPHALANGEAL JOINT; COMMENT: left hallux OTHER SURGICAL HISTORY 10/28/2023 Left PROCEDURE: KS BIOPSY BONE OPEN SUPERFICIAL OTHER SURGICAL HISTORY 11/16/2023 Left PROCEDURE: KS AMPUTATION FOOT TRANSMETARSAL; COMMENT: left, first metatarsal head OTHER SURGICAL HISTORY 11/19/2023 Left PROCEDURE: KS INCISION BONE CORTEX FOOT; COMMENT: left, first metatarsal OTHER SURGICAL HISTORY 11/19/2023 Left PROCEDURE: KS SECONDARY CLOSURE SURG WOUND/DEHSN XTNSV/COMP; COMMENT: left foot TOE AMPUTATION Bilateral Bilateral great toe amputations Medical History Medical History Date Comments Type 2 diabetes mellitus wit hout complications ([facility]/HCC) DX:Type 2 diabetes mellitus without complications ([facility]) CAD (coronary artery disease) DX :CAD (coronary artery disease) Hx of CABG 08/23/2015 DX:Hx of CABG; C OMMENT: X4 Anxiety Depression PAD (peripheral artery disea se) ([facility]) GERD (gastroesophageal reflux disease) Hypertension Hypercholesteremia Family History Medical History Relation Name Comments Other: unknown cardiac condition Brother Diabetes Mother Other: unknown cardiac conditon Mother Lung cancer Sister Relation Name Status Comments Brother Mother Sister Social History Tobacco Use Types Packs/Day Years [...] Orientation Straight 10/19/2024 7: 30 AM EST Obstetrics History Last Filed Vital Signs Vital Sign Reading [...] Mass Index 30.41 11/16/2024 6:45 PM EST Plan of Treatment Upcoming Encounters Date Type Department Care Team (Late st Contact Info) Description 01/10/2025 2:45 PM EDT Office Visit Orthopedic Surgery - [place] [id number] [phone] Cory Lama, DPM [address] [address] Health Maintenance Due Date Last Done Comments Diabetes: Annual Foot Exam 02/01/1978 Diabetes: Annual Retina Eye Exam 02/01/1978 DTaP,Tdap,and Td Vaccines (1 - Tdap) 02/01/1987 Hepatitis B Vaccines (1 of 3 - 19+ 3-dose series) 02/01/1987 Pneumococcal Vaccine: 50+ Years (2 of 2 - PCV) 08/26/2016 08/26/2015 Pneumococcal Vaccine: Pediatrics (0 to 5 Years) and At-Risk Patients (6 to 64 Years) (2 of 2 - PCV) 08/26/2016 08/26/2015 Zoster Vaccines (1 of 2) 02/01/2018 Cholesterol Screening (Lipid Panel) 08/18/2022 Colorectal Cancer Screening: Colonoscopy 08/18/2022 Depression Screening 08/18/2022 HIV Screening 08/18/2022 Hepatitis C Screening 08/18/2022 Social Influencers of Health Screening 08/18/2022 COVID-19 Vaccine ( - season) 2024 Influenza Vaccine (#1) 2024 09/30/2021 Diabetes: Blood Sugar Control Test (HGBA1C) 02/25/2025 08/27/2024 Diabetes: Annual Urine Albumin-Creatinine Ratio (uACR) 07/23/2025 07/23/2024 Diabetes: Annual GFR (Glomerular Filtration Rate) 11/16/2025 11/16/2024, 10/19/2024, 10/12/2024, Additional history exists Hypertension/CHF/CAD Annual BMP Blood Test 11/16/2025 11/16/2024, 10/19/2024, 10/12/2024, Additional history exists HIB Vaccines Aged Out No longer eligi ble based on patient's age to complete this topic HPV Vaccines Aged Out No longer eligi ble based on patient's age to complete this topic Hepatitis A Vaccines Aged Out No long er eligible based on patient's age to complete this topic IPV Vaccines Aged Out No longer eligi ble based on patient's age to complete this topic MMR Vaccines Aged Out No longer eligi ble based on patient's age to complete this topic Meningococcal ACWY Vaccine Aged Out N o longer eligible based on patient's age to complete this topic Meningococcal B Vacine Aged Out No lo nger eligible based on patient's age to complete this topic RSV Immunization Patients Under 20 months Aged Out No longer eligible based on patient's age to complete this topic Varicella Vaccines Aged Out No longer eligible based on patient's age to complete this topic Procedures Procedure Name Priority Date/Time Associated Diagnosis Comments POCT GLUCOSE BLOOD Routine 11/17/2024 7: 51 AM EST CBC WITH AUTO DIFFERENTIAL STAT 11/16/2024 9:37 PM EST CBC AND DIFFERENTIAL STAT 11/16/2024 9:37 PM EST ECG 12-LEAD STAT 11/16/2024 8:48 PM EST METHADONE SCREEN, URINE STAT 11/16/2024 8:30 PM EST PHENCYCLIDINE, URINE STAT 11/16/2024 8:30 PM EST BUPRENORPHINE SCREEN, URINE STAT 11/16/2024 8:30 PM EST DRUG ABUSE SCREEN 8A PANEL, URINE STAT 11/16/2024 8:30 PM EST BASIC METABOLIC PANEL STAT Add-on 11/16/2024 7:19 PM EST SALICYLATE LEVEL STAT Add-on 11/16/2024 7:19 PM EST ACETAMINOPHEN LEVEL STAT Add-on 11/16/2024 7 :19 PM EST ETHANOL STAT Add-on 11/16/2024 7:19 PM EST C-REACTIVE PROTEIN STAT 11/16/2024 7: 19 PM EST SEDIMENTATION RATE STAT 11/16/2024 7: 19 PM EST LACTATE, WITH REFLEX STAT 11/16/2024 7:19 PM EST CULTURE BLOOD STAT 11/16/2024 7:19 PM EST CULTURE BLOOD STAT 11/16/2024 7:19 PM EST POCT GLUCOSE BLOOD Routine 10/19/2024 11 :[address] LOWER EXTREMITY W CONTRAST RIGHT STAT 10/19/2024 10:45 AM EST XR FOOT 3+ VIEWS RIGHT STAT 8:49 AM EST LACTATE, WITH REFLEX STAT 10/19/2024 8:29 AM EST CULTURE BLOOD STAT 10/19/2024 8:29 AM EST CBC WITH AUTO DIFFERENTIAL STAT 10/19/2024 8:19 AM EST BETA HYDROXYBUTYRATE STAT 10/19/2024 8:19 AM EST BASIC METABOLIC PANEL STAT 10/19/2024 8:19 AM EST CBC AND DIFFERENTIAL STAT 10/19/2024 8:19 AM EST SEDIMENTATION RATE STAT 10/19/2024 8: 19 AM EST C-REACTIVE PROTEIN STAT 10/19/2024 8: 19 AM EST CULTURE BLOOD STAT 10/19/2024 8:19 AM EST POCT GLUCOSE BLOOD Routine 10/19/2024 8: 00 AM EST POCT GLUCOSE BLOOD Routine 10/13/2024 7: 39 PM EST POCT GLUCOSE BLOOD Routine 10/13/2024 4: 07 PM EST POCT GLUCOSE BLOOD Routine 10/13/2024 11 :10 AM EST POCT GLUCOSE BLOOD Routine 10/13/2024 7: 45 AM EST POCT GLUCOSE BLOOD Routine 10/12/2024 7: 56 PM EST POCT GLUCOSE BLOOD Routine 10/12/2024 4: 35 PM EST POCT GLUCOSE BLOOD Routine 10/12/2024 11 :14 AM EST POCT GLUCOSE BLOOD Routine 10/12/2024 7: 58 AM EST LAVENDER - EDTA Routine 10/12/2024 6:09 AM EST EXTRA TUBES Routine 10/12/2024 6:09 AM EST CREATININE, SERUM Routine 10/12/2024 6:0 8 AM EST POCT GLUCOSE BLOOD Routine 10/12/2024 5: 56 AM EST POCT GLUCOSE BLOOD Routine 10/11/2024 7: 56 PM EST POCT GLUCOSE BLOOD Routine 10/11/2024 4: 14 PM EST POCT GLUCOSE BLOOD Routine 10/11/2024 11 :24 AM EST POCT GLUCOSE BLOOD Routine 10/11/2024 8: 28 AM EST POCT GLUCOSE BLOOD Routine 10/11/2024 6: 20 AM EST POCT GLUCOSE BLOOD Routine 10/10/2024 8: 08 PM EST VANCOMYCIN, TROUGH Timed 10/10/2024 7: 50 PM EST POCT GLUCOSE BLOOD Routine 10/10/2024 4: 09 PM EST POCT GLUCOSE BLOOD Routine 10/10/2024 11 :08 AM EST POCT GLUCOSE BLOOD Routine 10/10/2024 7: 30 AM EST POCT GLUCOSE BLOOD Routine 10/10/2024 6: 42 AM EST POCT GLUCOSE BLOOD Routine 10/09/2024 7: 58 PM EST POCT GLUCOSE BLOOD Routine 10/09/2024 3: 56 PM EST POCT GLUCOSE BLOOD Routine 10/09/2024 11 :16 AM EST POCT GLUCOSE BLOOD Routine 10/09/2024 8: 12 AM EST POCT GLUCOSE BLOOD Routine 10/08/2024 8: 26 PM EST POCT GLUCOSE BLOOD Routine 10/08/2024 4: 11 PM EST POCT GLUCOSE BLOOD Routine 10/08/2024 11 :08 AM EST POCT GLUCOSE BLOOD Routine 10/08/2024 8: 00 AM EST POCT GLUCOSE BLOOD Routine 10/07/2024 8: 51 PM EST VANCOMYCIN, TROUGH Timed 10/07/2024 5: 06 PM EST POCT GLUCOSE BLOOD Routine 10/07/2024 3: 30 PM EST POCT GLUCOSE BLOOD Routine 10/07/2024 11 :02 AM EST POCT GLUCOSE BLOOD Routine 10/07/2024 7: 38 AM EST MAGNESIUM Routine 10/07/2024 7:07 AM EST BASIC METABOLIC PANEL Routine 10/07/2024 7:07 AM EST COMPLETE BLOOD COUNT Routine 10/07/2024 7:07 AM EST PHOSPHORUS Routine 10/07/2024 7:07 AM EST POCT GLUCOSE BLOOD Routine 10/06/2024 7: 46 PM EST POCT GLUCOSE BLOOD Routine 10/06/2024 4: 20 PM EST POCT GLUCOSE BLOOD Routine 10/06/2024 12 :43 PM EST CULTURE BONE Routine 10/06/2024 11:00 AM EST Osteomyelitis of second toe of right foot (CMS/HCC) CULTURE WOUND DEEP Routine 10/06/2024 10 :57 AM EST Osteomyelitis of second toe of right foot (CMS/HCC) TISSUE EXAM Routine 10/06/2024 10:56 AM EST Osteomyelitis of second toe of right foot (CMS/HCC) AMPUTATION TOE 10/06/2024 10:35 AM EST Osteomyelitis of second toe of right foot (CMS/HCC) POCT GLUCOSE BLOOD Routine 10/06/2024 8: 43 AM EST MAGNESIUM Routine 10/06/2024 4:53 AM EST BASIC METABOLIC PANEL Routine 10/06/2024 4:53 AM EST COMPLETE BLOOD COUNT Routine 10/06/2024 4:53 AM EST PHOSPHORUS Routine 10/06/2024 4:53 AM EST VANCOMYCIN, TROUGH Timed 10/06/2024 4: 53 AM EST POCT GLUCOSE BLOOD Routine 10/05/2024 9: [address] HEAD WO CONTRAST STAT 10/05/2024 6 :51 PM EST TIGER TOP URINE TUBE Routine 10/05/2024 5:10 PM EST BLACKMON URINE CULTURE TUBE Routine 10/05/2024 5:10 PM EST EXTRA TUBES Routine 10/05/2024 5:10 PM EST DRUG ABUSE SCREEN 8A PANEL, URINE Routine 10/05/2024 5:06 PM EST POCT GLUCOSE BLOOD Routine 10/05/2024 3: 42 PM EST ROUTINE EEG Routine 10/05/2024 2:24 PM EST POCT GLUCOSE BLOOD Routine 10/05/2024 12 :55 PM EST POCT GLUCOSE BLOOD Routine 10/05/2024 8: 29 AM EST POCT GLUCOSE BLOOD Routine 10/05/2024 7: 34 AM EST PHOSPHORUS STAT 10/05/2024 4:28 AM EST MAGNESIUM STAT 10/05/2024 4:28 AM EST COMPLETE BLOOD COUNT STAT 10/05/2024 4:28 AM EST BASIC METABOLIC PANEL STAT 10/05/2024 4:28 AM EST POCT GLUCOSE BLOOD Routine 10/05/2024 3: 21 AM EST TROPONIN I HIGH SENSITIVITY Routine 10/05/2024 1:03 AM EST ECG 12-LEAD Routine 10/05/2024 12:28 AM EST POCT GLUCOSE BLOOD Routine 10/04/2024 7: 52 PM EST POCT GLUCOSE BLOOD Routine 10/04/2024 4: 26 PM EST VANCOMYCIN, TROUGH Timed 10/04/2024 4: 13 PM EST POCT GLUCOSE BLOOD Routine 10/04/2024 11 :11 AM EST POCT GLUCOSE BLOOD Routine 10/04/2024 7: 31 AM EST CBC WITH AUTO DIFFERENTIAL Routine 10/04/2024 6:21 AM EST BASIC METABOLIC PANEL Routine 10/04/2024 6:21 AM EST CBC AND DIFFERENTIAL Routine 10/04/2024 6:21 AM EST ECG 12-LEAD STAT 10/03/2024 8:36 PM EST TROPONIN I HIGH SENSITIVITY STAT 10/03/2024 8:01 PM EST POCT GLUCOSE BLOOD Routine 10/03/2024 7: 18 PM EST POCT GLUCOSE BLOOD Routine 10/03/2024 4: 20 PM EST POCT GLUCOSE BLOOD Routine 10/03/2024 1: 04 PM EST MR FOOT WO AND W CONTRAST RIGHT Routine 10/03/2024 12:54 PM EST LACTATE Routine 10/03/2024 8:56 AM EST MRSA PCR Routine 10/03/2024 8:16 AM EST POCT GLUCOSE BLOOD Routine 10/03/2024 7: 42 AM EST CBC WITH AUTO DIFFERENTIAL Routine 10/03/2024 5:48 AM EST CBC AND DIFFERENTIAL Routine 10/03/2024 5:48 AM EST MAGNESIUM Routine 10/03/2024 5:48 AM EST BASIC METABOLIC PANEL Routine 10/03/2024 5:48 AM EST POCT GLUCOSE BLOOD Routine 10/02/2024 7: 32 PM EST LACTATE, WITH REFLEX Timed 10/02/2024 5:56 PM EST POCT GLUCOSE BLOOD Routine 10/02/2024 5: 19 PM EST CULTURE WOUND WITH GRAM STAIN STAT 10/02/2024 3:04 PM EST XR FOOT 3+ VIEWS RIGHT STAT 2:45 PM EST VAS US DUPLEX LOWER EXT VENOUS RIGHT STAT 10/02/2024 1:56 PM EST Pain CBC WITH AUTO DIFFERENTIAL STAT 10/02/2024 1:55 PM EST C-REACTIVE PROTEIN STAT 10/02/2024 1: 55 PM EST SEDIMENTATION RATE STAT 10/02/2024 1: 55 PM EST BASIC METABOLIC PANEL STAT 10/02/2024 1:55 PM EST CBC AND DIFFERENTIAL STAT 10/02/2024 1:55 PM EST LACTATE, WITH REFLEX STAT 10/02/2024 1:55 PM EST CULTURE BLOOD STAT 10/02/2024 1:55 PM EST CULTURE BLOOD STAT 10/02/2024 1:55 PM EST XR FOOT 3+ VIEWS RIGHT Routine 10:04 AM EST Non-pressure chronic ulcer of other part of right foot with unspecified severity (CMS/HCC) CBC WITH AUTO DIFFERENTIAL Routine 08/27/2024 9:43 AM EST Diabetic neuropathy (CMS/HCC) Ulcer of right foot (CMS/HCC) C-REACTIVE PROTEIN Routine 08/27/2024 9: 43 AM EST Diabetic neuropathy (CMS/HCC) Ulcer of right foot (CMS/HCC) CBC AND DIFFERENTIAL Routine 08/27/2024 9:43 AM EST Diabetic neuropathy (CMS/HCC) Ulcer of right foot (CMS/HCC) SEDIMENTATION RATE Routine 08/27/2024 9: 43 AM EST Diabetic neuropathy (CMS/HCC) Ulcer of right foot (CMS/HCC) HEMOGLOBIN A1C Routine 08/27/2024 9:43 AM EST Diabetic neuropathy (CMS/HCC) Ulcer of right foot (CMS/HCC) MICROALBUMIN CREATININE URINE RATIO Routine 07/23/2024 10:59 AM EST Type 2 diabetes mellitus with diabetic neuropathy, unspecified (CMS/HCC) AMPUTATION TOE Diabetic ulcer of toe of right foot associated with type 2 diabetes mellitus, unspecified ulcer stage (CMS/HCC) Osteomyelitis of toe of right foot (CMS/HCC) from Last 3 Months or Most Recently Relevant to Health Maintenance Results * (ABNORMAL) POCT Glucose, blood (11/17/2024 7:51 AM EST) Only the most recent of54 resultswithin the time period is included. Glucose POCT 223(H) 70 - 100 mg/dL 11/17/2024 7:51 AM EST [facility] Blood Capillary blood specimen / Unknown 11/17/2024 7:51 AM EST 11/17/2024 7:52 AM EST us Scot Juan Grubbs MD LAB POINT OF CARE TE ST DOCKED DEVICE UNSOLICITED RESULTS Final Result [facility] [address] [place] [address], * (ABNORMAL) CBC auto differential (11/16/2024 9:37 PM EST) Only the most recent of6 resultswithin the time period is included. [facility] Signature WBC 10.2 4.8 - 10.8 K/mcL LAB HEMETOLOGY METHOD 11/16/2024 10:43 PM [facility] RBC 4.30(L) 4.50 - 5.50 M/mcL LAB HEMETOLOGY METHOD 11/16/2024 10:43 PM [facility] Hemoglobin 14.2 13.5 - 17.5 g/dL LAB HEMETOLOGY METHOD 11/16/2024 10:43 PM [facility] Hematocrit 42.1 42.0 - 54.0 % LAB HEMETOLOGY METHOD 11/16/2024 10:43 PM [facility] MCV 97.5 79.0 - 98.0 FL LAB HEMETOLOGY METHOD 11/16/2024 10:43 PM [facility] MCH 32.9(H) 27.0 - 32.0 pcg LAB HEMETOLOGY METHOD 11/16/2024 10:43 PM [facility] MCHC 33.7 32.0 - 37.0 g/dL LAB HEMETOLOGY METHOD 11/16/2024 10:43 PM [facility] RDW 13.6 11.0 - 15.0 % LAB HEMETOLOGY METHOD 11/16/2024 10:43 PM [facility] Platelets 257 130 - 400 K/mcL LAB HEMETOLOGY METHOD 11/16/2024 10:43 PM [facility] MPV 9.7 7.0 - 11.0 FL LAB HEMETOLOGY METHOD 11/16/2024 10:43 PM [facility] NRBC 0.0 <1.0 % LAB HEMETOLOGY METHOD 11/16/2024 10:43 PM [facility] NRBC Absolute 0.00 <0.10 K/mcL LAB HEMETOLOGY METHOD 11/16/2024 10:43 PM [facility] Neutrophils Relative 76.2 % LAB HEMETOLOGY METHOD 11/16/2024 10:43 PM [facility] Lymphocytes Relative 15.1 % LAB HEMETOLOGY METHOD 11/16/2024 10:43 PM [facility] Monocytes Relative 7.3 % LAB HEMETOLOGY METHOD 11/16/2024 10:43 PM [facility] Eosinophils Relative 0.7 % LAB HEMETOLOGY METHOD 11/16/2024 10:43 PM [facility] Basophils Relative 0.1 % LAB HEMETOLOGY METHOD 11/16/2024 10:43 PM [facility] Immature Granulocytes Relative 0.6 % LAB HEMETOLOGY METHOD 11/16/2024 10:43 PM [facility] Neutrophils Absolute 7.75(H) 1.50 - 7.00 K/mcL LAB HEMETOLOGY METHOD 11/16/2024 10:43 PM [facility] Lymphocytes Absolute 1.53 1.00 - 5.00 K/mcL LAB HEMETOLOGY METHOD 11/16/2024 10:43 PM [facility] Monocytes Absolute 0.74 0.20 - 1.00 K/mcL LAB HEMETOLOGY METHOD 11/16/2024 10:43 PM [facility] Eosinophils Absolute 0.07 0.00 - 0.50 K/mcL LAB HEMETOLOGY METHOD 11/16/2024 10:43 PM [facility] Basophils Absolute 0.01 0.00 - 0.20 K/mcL LAB HEMETOLOGY METHOD 11/16/2024 10:43 PM [facility] Immature Granulocytes Absolute 0.06(H) 0.00 - 0.03 K/mcL LAB HEMETOLOGY METHOD 11/16/2024 10:43 PM EST [facility] Blood Venous blood specimen / Unknown Venipuncture / Unknown 11/16/2024 9:37 PM EST 11/16/2024 10:33 PM EST Omar Perez MD LAB BLOOD ORDERABLES Final Resu lt Performing Organization Address City/[facility] Co de Phone Number [facility] [address] [place] [address], [place] [phone] * ECG 12 lead (11/16/2024 8:48 PM EST) Only the most recent of3 resultswithin the time period is included. Ventricular Rate ECG 59 BPM GEMUSE Atrial Rate 59 BPM GEMUSE P-R Interval 120 ms GEMUSE QRS Duration 88 ms GEMUSE Q-T Interval 410 ms GEMUSE QTc 405 ms GEMUSE P Wave [place] 6 degrees GEMUSE R [place] 15 degrees GEMUSE T [place] 92 degrees GEMUSE ECG Interpretation Sinus bradycardia When compared with ECG of 05-OCT-2024 00:28, No significant change was found Confirmed by MALLY SERRA ([id number]) on 11/17/2024 7:41:44 AM GEMUSE 11/16/2024 8:48 PM EST 11/17/2024 7:41 AM EST Omar Perez MD ECG ORDERABLES Final Result Performing Organization Address [facility] de Phone Number GEMUSE * (ABNORMAL) Drug abuse screen 8a panel, urine (11/16/2024 8:30 PM EST) Only the most recent of2 resultswithin the time period is included. Pathologist [facility] Amphetamine Screen, Ur Negative Negative LAB CHEMISTRY METHOD 9:20 PM EST [facility] Comment:Certain OTC medicati ons containing ephedrine, phenylephrine, pseudoephedrine and phenylpropanolamine can cause false positive results. Barbiturate Screen, Ur Negative Negative LAB CHEMISTRY METHOD 5 9:20 PM EST [facility] Benzodiazepine Screen, Ur Negative Negative LAB CHEMISTRY METHOD 5 9:20 PM [facility] Cocaine Screen, Ur Negative Negative LAB CHEMISTRY METHOD 5 9:20 PM [facility] Opiate Screen, Ur Negative Negative LAB CHEMISTRY METHOD 5 9:20 PM [facility] Cannabinoid (THC) Screen, Ur Positive(A ) Negative LAB CHEMISTRY METHOD 5 9:20 PM [facility] Comment:Specimens from patie nts taking pantoprazole sodium (Protonix) have been shown to produce false positive results. Oxycodone Screen, Ur Negative Negative LAB CHEMISTRY METHOD 5 9:20 PM [facility] Fentanyl, Ur Negative Negative LAB CHEMISTRY METHOD 5 9:20 PM [facility] Urine Urine specimen obtained by clean catch procedure / Unknown Non-blood Collection / Unknown 11/16/2024 8:30 PM EST 11/16/2024 8:45 PM EST [facility] - 11/16/2024 9:20 PM EST Assay cutoffs: Amphetamines ? 1000 ng/mL Barbiturates ?200 ng/mL Benzodiazepines ?? 200 ng/mL Cocaine ? 300 ng/mL Fentanyl ?1 ng/mL Opiates ? 300 ng/mL Oxycodone ? 100 ng/mL THC ?50 ng/mL Semi-quantitative assay for screening purposes only. Unconfirmed screening result should not be used for non-medical purposes. *ALTERNATE METHOD CONFIRMATION DONE UPON REQUEST ONLY* us Omar Perez MD LAB URINE ORDERABLES Final Resu lt Performing Organization Address [facility]/ZIP Co de Phone Number [facility] [address] [place] [address], * Buprenorphine screen, urine (11/16/2024 8:30 PM EST) Buprenorphine Screen Urine Negative Negative LAB CHEMISTRY METHOD 11/16/2024 9:20 PM EST [facility] Urine Urine specimen obtained by clean catch procedure / Unknown Non-blood Collection / Unknown 11/16/2024 8:30 PM EST 11/16/2024 8:45 PM EST Narrative [facility] - 11/16/2024 9:20 PM EST Assay cutoff 5 ng/mL Semi-quantitative assay for screening purposes only. Unconfirmed screening result should not be used for non-medical purposes. *ALTERNATE METHOD CONFIRMATION DONE UPON REQUEST ONLY* Omar Perez MD LAB URINE ORDERABLES Final Resu lt Performing Organization Address [facility] Co de Phone Number [facility] [address] [place] [address], * Methadone, urine (11/16/2024 8:30 PM EST) [facility] Methadone Screen, Urine Negative Negative LAB CHEMISTRY METHOD 11/16/2024 9:20 PM EST [facility] Comment: Assay cutoff 300 ng/mL [...] ORDERABLES Final Resu lt Performing Organization Address City/[facility]/ZIP Co de Phone Number [facility] [address] [place] [address], [place] [phone] * Phencyclidine, urine (11/16/2024 8:30 PM EST) Pathologist [facility] PCP Scrn, Ur Negative Negative LAB CHEMISTRY METHOD 11/16/2024 9:20 PM EST [facility] Comment: Assay cutoff 25 ng/mL [...] ORDERABLES Final Resu lt Performing Organization Address [facility]/ZIP Co de Phone Number [facility] [address] [place] [address], * Lactate, with reflex (11/16/2024 7:19 PM EST) Only the most recent of4 resultswithin the time period is included. [facility] LACTIC ACID 1.6 0.4 - 2.0 mmol/L LAB CHEMISTRY METHOD 11/16/2024 8:22 PM EST [facility] Blood Venous blood specimen / Unknown Venipuncture / Unknown 11/16/2024 7:19 PM EST 11/16/2024 7:54 PM EST us Tosha ZHANG LAB BLOOD ORDERABLES Final Resu lt Performing Organization Address City/[facility]/ZIP Co de Phone Number [facility] [address] [place] [address], * Sedimentation rate (11/16/2024 7:19 PM EST) Only the most recent of4 resultswithin the time period is included. [facility] Sed Rate 10 0 - 20 mm/hr LAB HEMETOLOGY METHOD 11/16/2024 8:04 PM EST [facility] Blood Venous blood specimen / Unknown Venipuncture / Unknown 11/16/2024 7:19 PM EST 11/16/2024 7:56 PM EST Tosha ZHANG LAB BLOOD ORDERABLES Final Resu lt Performing Organization Address City/[facility]/ZIP Co de Phone Number [facility] [address] [place] [address], [place] [phone] * C-reactive protein (11/16/2024 7:19 PM EST) Only the most recent of4 resultswithin the time period is included. C-Reactive Protein 0.44 <=0.50 mg/dL LAB CHEMISTRY METHOD 11/16/2024 8:35 PM EST [facility] Blood Venous blood specimen / Unknown Venipuncture / Unknown 11/16/2024 7:19 PM EST 11/16/2024 7:56 PM EST us Tosha ZHANG LAB BLOOD ORDERABLES Final Resu lt Performing Organization Address [facility]/ZIP Co de Phone Number [facility] [address] [place] [address], [place] [phone] * Ethanol (11/16/2024 7:19 PM EST) Ethanol Level 5 0 - 10 mg/dL LAB CHEMISTRY METHOD 11/16/2024 8:35 PM EST [facility] Blood Venous blood specimen / Unknown Venipuncture / Unknown 11/16/2024 7:19 PM EST 11/16/2024 7:56 PM EST Omar Perez MD LAB BLOOD ORDERABLES Final Resu lt Performing Organization Address City/[facility]/ZIP Co de Phone Number [facility] [address] [place] [address], [place] [phone] * (ABNORMAL) Acetaminophen level (11/16/2024 7:19 PM EST) Acetaminophen Level <2.0(L) 10.0 - 30.0 mcg/mL LAB CHEMISTRY METHOD 11/16/2024 8:35 PM EST [facility] Blood Venous blood specimen / Unknown Venipuncture / Unknown 11/16/2024 7:19 PM EST 11/16/2024 7:56 PM EST Omar Perez MD LAB BLOOD ORDERABLES Final Resu lt Performing Organization Address [facility]/ZIP Co de Phone Number [facility] [address] [place] [address], [place] [phone] * (ABNORMAL) Salicylate level (11/16/2024 7:19 PM EST) Salicylate Level <1.7(L) 2.0 - 29.0 mg/dL LAB CHEMISTRY METHOD 11/16/2024 8:35 PM EST [facility] Blood Venous blood specimen / Unknown Venipuncture / Unknown 11/16/2024 7:19 PM EST 11/16/2024 7:56 PM EST Omar Perez MD LAB BLOOD ORDERABLES Final Resu lt Performing Organization Address City/[facility]/ZIP Co de Phone Number [facility] [address] [place] [address], [place] [phone] * (ABNORMAL) Basic metabolic panel (11/16/2024 7:19 PM EST) Only the most recent of8 resultswithin the time period is included. Sodium 140 133 - 145 mmol/L LAB CHEMISTRY METHOD 11/16/2024 8:35 PM EST [facility] Potassium 3.9 3.5 - 5.5 mmol/L LAB CHEMISTRY METHOD 11/16/2024 8:35 PM [facility] Chloride 110 96 - 110 mmol/L LAB CHEMISTRY METHOD 11/16/2024 8:35 PM [facility] CO2 21 21 - 32 mmol/L LAB CHEMISTRY METHOD 11/16/2024 8:35 PM [facility] Anion Gap 9 3 - 11 LAB CHEMISTRY METHOD 11/16/2024 8:35 PM [facility] Glucose 127(H) 70 - 100 mg/dL LAB CHEMISTRY METHOD 11/16/2024 8:35 PM [facility] BUN 10 5 - 25 mg/dL LAB CHEMISTRY METHOD 11/16/2024 8:35 PM [facility] Creatinine 0.89 0.70 - 1.30 mg/dL LAB CHEMISTRY METHOD 11/16/2024 8:35 PM [facility] eGFR 101 >=60 mL/min/1. 73m2 LAB CHEMISTRY METHOD 11/16/2024 8:35 PM [facility] Comment:Calculation based on the??Chronic Kidney Disease Epidemiology Collaboration (CKD-EPI) equation refit??without adjustment for race. BUN/Creatinine Ratio 11.2 LAB CHEMISTRY METHOD 11/16/2024 8:35 PM [facility] Calcium 8.8 8.5 - 10.5 mg/dL LAB CHEMISTRY METHOD 11/16/2024 8:35 PM [facility] Blood Venous blood specimen / Unknown Venipuncture / Unknown 11/16/2024 7:19 PM EST 11/16/2024 7:56 PM EST us Omar Perez MD LAB BLOOD ORDERABLES Final Resu lt [facility] [address] [place] [address], [place] [phone] * CT Lower Extremity w Contrast Right (10/19/2024 10:45 AM EST) Anatomical Region Laterality Modality Lower Extremities Right Computed Tomog judy 10/19/2024 10:5 3 AM EST Impressions 10/19/2024 11:03 AM EST Soft tissue wound ill-defined fluid tracking from the dorsal skin surface to the residual 2nd metatarsal head with 2nd metatarsal head osteomyelitis. ??No drainable abscess. -------- FINAL REPORT -------- Dictated By: JOSIAH WHITMAN Dictated Date: 10/19/2024 10:53 ET Assigned Physician: JOSIAH WHITMAN Reviewed and Electronically Signed By: JOSIAH WHITMAN Signed Date: 10/19/2024 11:03 ET Workstation ID: [id number] Transcribed By: Self Edit Transcribed Date: 10/19/2024 10:53 ET Narrative 10/19/2024 11:03 AM EST PROCEDURE: Right lower extremity CT INDICATION: Limb deformity; ??pain TECHNIQUE: Right lower extremity CT with intravenous administration of 90cc ISOVUE-370. Multi planar reformats were created and interpreted. The examination was performed utilizing dose reduction techniques. ??Total DLP 231 3-D reformatted images were created on an independent workstation with direct supervision by the radiologist COMPARISON: ??Same day radiograph FINDINGS: Amputation of the 2nd toe at the level of the metatarsophalangeal joint. 1st toe amputation at the level of the metatarsophalangeal joint. Fluid filled tract extending from the skin surface to the residual 2nd metatarsal head. ??Sclerosis at the 2nd metatarsal head. ??Cortical destruction along the distal aspect of the 2nd metatarsal head suspicious for osteomyelitis. ?? No acute fracture. ?? Soft tissue swelling throughout the forefoot. ??No drainable abscess. Diffuse muscle atrophy. ??No soft tissue mass. Procedure Note Josiah Whitman MD - 10/19/2024 PROCEDURE: Right lower extremity CT INDICATION: Limb deformity; pain TECHNIQUE: Right lower extremity CT with intravenous administration of90cc ISOVUE-370. Multi planar reformats were created and interpreted. Theexamination was performed utilizing dose reduction techniques. Total [id number] 3-D reformatted images were created on an independent workstation withdirect supervision by the radiologist COMPARISON: Same day radiograph FINDINGS: Amputation of the 2nd toe at the level of the metatarsophalangeal joint. 1st toe amputation at the level of the metatarsophalangeal joint. Fluid filled tract extending from the skin surface to the residual 2ndmetatarsal head. Sclerosis at the 2nd metatarsal head. Corticaldestruction along the distal aspect of the 2nd metatarsal head suspiciousfor osteomyelitis. No acute fracture. Soft tissue swelling throughout the forefoot. No drainable abscess. Diffuse muscle atrophy. No soft tissue mass. IMPRESSION: Soft tissue wound ill-defined fluid tracking from the dorsal skin surfaceto the residual 2nd metatarsal head with 2nd metatarsal headosteomyelitis. No drainable abscess. -------- FINAL REPORT -------- Dictated By: JOSIAH WHITMAN Dictated Date: 10/19/2024 10:53 ET Assigned Physician: JOSIAH WHITMAN Reviewed and Electronically Signed By: JOSIAH WHITMAN Signed Date: 10/19/2024 11:03 ET Workstation ID: [id number] Transcribed By: Self Edit Transcribed Date: 10/19/2024 10:53 ET Anitra ZHANG IMG CT PROCEDURES Final Result * XR Foot 3+ Views Right (10/19/2024 8:49 AM EST) Only the most recent of3 resultswithin the time period is included. Anatomical Region Laterality Modality Lower Extremities, Foot Right [facility] 10/19/2024 8:57 AM EST Impressions 10/19/2024 9:09 AM EST FINDINGS/IMPRESSION: Interval amputation of the 2nd toe at the level of the metatarsophalangeal joint. ??Unchanged 1st toe amputation at the level of the metatarsophalangeal joint. ??There is cortical destruction along the distal aspect of the 2nd metatarsal suspicious for ongoing osteomyelitis. ??No acute fracture. ??Soft tissue swelling throughout the forefoot. -------- FINAL REPORT -------- Dictated By: JOSIAH WHITMAN Dictated Date: 10/19/2024 08:57 ET Assigned Physician: JOSIAH WHITMAN Reviewed and Electronically Signed By: JOSIAH WHITMAN Signed Date: 10/19/2024 09:09 ET Workstation ID: [id number] Transcribed By: Self Edit Transcribed Date: 10/19/2024 08:57 ET Narrative 10/19/2024 9:09 AM EST XR FOOT 3+ VIEWS RIGHT INDICATION: ??Wound TECHNIQUE: XR FOOT 3+ VIEWS RIGHT COMPARISON: 10/02/2024 Procedure Note Josiah Whitman MD - 10/19/2024 XR FOOT 3+ VIEWS RIGHT INDICATION: Wound TECHNIQUE: XR FOOT 3+ VIEWS RIGHT COMPARISON: 10/02/2024 IMPRESSION: FINDINGS/IMPRESSION: Interval amputation of the 2nd toe at the level ofthe metatarsophalangeal joint. Unchanged 1st toe amputation at the levelof the metatarsophalangeal joint. There is cortical destruction along thedistal aspect of the 2nd metatarsal suspicious for ongoing osteomyelitis.No acute fracture. Soft tissue swelling throughout the forefoot. -------- FINAL REPORT -------- Dictated By: JOSIAH WHITMAN Dictated Date: 10/19/2024 08:57 ET Assigned Physician: JOSIAH WHITMAN Reviewed and Electronically Signed By: JOSIAH WHITMAN Signed Date: 10/19/2024 09:09 ET Workstation ID: [id number] Transcribed By: Self Edit Transcribed Date: 10/19/2024 08:57 ET Anitra ZHANG IMG XR PROCEDURES Final Result * Blood Culture, Peripheral Draw #2 (10/19/2024 8:29 AM EST) Only the most recent of4 resultswithin the time period is included. Culture, Blood No growth at 5 days LAB MICROBIOLOGY METHOD 10/24/2024 9:01 AM EST [facility] Blood Venous blood specimen / Unknown Venipuncture / Unknown 10/19/2024 8:29 AM EST 10/19/2024 8:37 AM EST us Anitra ZHANG LAB MICROBIOLOGY - GENER AL ORDERABLES Final Result [facility] [address] [place] [address], [place] [phone] * Beta hydroxybutyrate (10/19/2024 8:19 AM EST) Beta-Hydroxybu tyrate 1.3 0.2 - 2.8 mg/dL LAB CHEMISTRY METHOD 10/19/2024 9:07 AM EST [facility] Blood Venous blood specimen / Unknown Venipuncture / Unknown 10/19/2024 8:19 AM EST 10/19/2024 8:37 AM EST Anitra ZHANG LAB BLOOD ORDERABLES Fin al Result [facility] [address] [place] [address], * Lavender tube (10/12/2024 6:09 AM EST) Pathologist [facility] Extra Tube Hold for add-ons. 10/12/2024 8:01 AM EST [facility] Comment:Auto resulted. Blood Venous blood specimen / Unknown 10/12/2024 6:09 AM EST 10/12/2024 6:30 AM EST Blake Schrader MD LAB BLOOD ORDERABLES F inal Result [facility] [address] [place] [address], [place] [phone] * Creatinine serum (10/12/2024 6:08 AM EST) Creatinine 1.01 0.70 - 1.30 mg/dL LAB CHEMISTRY METHOD 10/12/2024 7:01 AM [facility] eGFR 87 >=60 mL/min/1. 73m2 LAB CHEMISTRY METHOD 10/12/2024 7:01 AM [facility] Comment:Calculation based on the??Chronic Kidney Disease Epidemiology Collaboration (CKD-EPI) equation refit??without adjustment for race. Blood Venous blood specimen / Unknown Venipuncture / Unknown 10/12/2024 6:08 AM EST 10/12/2024 6:30 AM EST Blake Schrader MD LAB BLOOD ORDERABLES F inal Result Performing Organization Address City/[facility]/ZIP Co de Phone Number [facility] [address] [place] [address], [place] [phone] * Vancomycin, trough Please draw before 2000 dose (10/10/2024 7:50 PM EST) Only the most recent of4 resultswithin the time period is included. [facility] Vancomycin Trough 14.9 10.0 - 20.0 mcg/mL LAB CHEMISTRY METHOD 10/10/2024 8:51 PM EST [facility] Blood Venous blood specimen / Unknown Venipuncture / Unknown 10/10/2024 7:50 PM EST 10/10/2024 8:29 PM EST Radha Leslie MD LAB BLOOD ORDERABLES Final Resul t Performing Organization Address [facility]/ZIP Co de Phone Number [facility] [address] [place] [address], [place] [phone] * (ABNORMAL) Complete blood count (10/07/2024 7:07 AM EST) Only the most recent of3 resultswithin the time period is included. [facility] WBC 6.1 4.8 - 10.8 K/mcL LAB HEMETOLOGY METHOD 10/07/2024 7:54 AM EST [facility] RBC 3.90(L) 4.50 - 5.50 M/mcL LAB HEMETOLOGY METHOD 10/07/2024 7:54 AM EST [facility] Hemoglobin 12.6(L) 13.5 - 17.5 g/dL LAB HEMETOLOGY METHOD 10/07/2024 7:54 AM EST [facility] Hematocrit 37.4(L) 42.0 - 54.0 % LAB HEMETOLOGY METHOD 10/07/2024 7:54 AM [facility] MCV 94.9 79.0 - 98.0 FL LAB HEMETOLOGY METHOD 10/07/2024 7:54 AM [facility] MCH 32.0 27.0 - 32.0 pcg LAB HEMETOLOGY METHOD 10/07/2024 7:54 AM EST [facility] MCHC 33.7 32.0 - 37.0 g/dL LAB HEMETOLOGY METHOD 10/07/2024 7:54 AM [facility] RDW 12.3 11.0 - 15.0 % LAB HEMETOLOGY METHOD 10/07/2024 7:54 AM [facility] Platelets 223 130 - 400 K/mcL LAB HEMETOLOGY METHOD 10/07/2024 7:54 AM EST [facility] MPV 9.8 7.0 - 11.0 FL LAB HEMETOLOGY METHOD 10/07/2024 7:54 AM [facility] NRBC 0.0 <1.0 % LAB HEMETOLOGY METHOD 10/07/2024 7:54 AM [facility] NRBC Absolute 0.00 <0.10 K/mcL LAB HEMETOLOGY METHOD 10/07/2024 7:54 AM [facility] Blood Venous blood specimen / Unknown Venipuncture / Unknown 10/07/2024 7:07 AM EST 10/07/2024 7:24 AM EST us Cody Nguyen MD LAB BLOOD ORDERABLE S Final Result [facility] [address] [place] [address], * Phosphorus (10/07/2024 7:07 AM EST) Only the most recent of3 resultswithin the time period is included. Phosphorus 2.5 2.5 - 4.5 mg/dL LAB CHEMISTRY METHOD 10/07/2024 8:18 AM EST [facility] Blood Venous blood specimen / Unknown Venipuncture / Unknown 10/07/2024 7:07 AM EST 10/07/2024 7:24 AM EST us Cody Nguyen MD LAB BLOOD ORDERABLE S Final Result Performing Organization Address City/[facility]/ZIP Co de Phone Number [facility] [address] [place] [address], [place] [phone] * Magnesium (10/07/2024 7:07 AM EST) Only the most recent of4 resultswithin the time period is included. [facility] Magnesium 2.0 1.9 - 2.6 mg/dL LAB CHEMISTRY METHOD 10/07/2024 8:18 AM EST [facility] Blood Venous blood specimen / Unknown Venipuncture / Unknown 10/07/2024 7:07 AM EST 10/07/2024 7:24 AM EST us Cody Nguyen MD LAB BLOOD ORDERABLE S Final Result [facility] [address] [place] [address], [place] [phone] * Culture bone (10/06/2024 11:00 AM EST) [facility] Culture, Bone No growth aerobically and anaerobically at 5 days. 10/11/2024 7:57 AM EST [facility] Gram Stain Result Rare Polymorphonuclear leukocytes 10/11/2024 7:57 AM EST [facility] Gram Stain Result No epithelial cells seen 10/11/2024 7:57 AM EST [facility] Gram Stain Result No organisms seen 10/11/2024 7:57 AM EST [facility] Bone Structure of toe of right foot / Unknown 10/06/2024 11:00 AM EST 10/06/2024 11:40 AM EST us Harvey Rhodes MD LAB MICROBIOLOGY - GENERAL ORDE RABLES Final Result Performing Organization Address [facility] Co de Phone Number [facility] [address] [place] [address], [place] [phone] * Culture wound deep (10/06/2024 10:57 AM EST) Culture, Wound No growth at 3 days 10/09/2024 11:10 AM EST [facility] Gram Stain Result No polymorphonuclear leukocytes, No epithelial cells, and No organisms noted 10/09/2024 11:10 AM EST [facility] Swab Structure of toe of right foot / Unknown 10/06/2024 10:57 AM EST 10/06/2024 11:40 AM EST us Harvey Rhodes MD LAB MICROBIOLOGY - GENERAL ORDE RABLES Final Result Performing Organization Address [facility] de Phone Number [facility] [address] [place] [address], [place] [phone] * Tissue exam (10/06/2024 10:56 AM EST) Final Diagnosis A. Toe, Right, Right 2nd toe amputation: -ACUTE OSTEOMYELITIS B. Toe, Right, Right 2nd distal metatarsal bone: -VIABLE APPEARING BONE AND CARTILAGE 10:46 AM EST [facility] Gross Description A. Toe, Right, Right 2nd toe amputation: Labeled right second toe R . Received in formalin is a 5.1 x 2.2 x 2 cm lower extremity digit disarticulated at the metatarsophalangeal joint. The dorsal surface, overlying the proximal intraphalangeal joint, displays a 1.8 x 1.3 cm ulceration involving the underlying bone, and located 1.3 cm from the grossly viable soft tissue margin. The uninvolved skin is ordaz-white and wrinkled. The toenail is ordaz-yellow and thickened. The soft tissue margin is inked blue. A service support representative longitudinal cross-section from lesion to margin is submitted in two cassettes following decalcification, one piece each B. Toe, Right, Right 2nd distal metatarsal bone: Labeled right second toe R . Received in formalin is a 1.3 x 1.1 x 0.6 cm articular bone fragment. The cartilage covered articular surface is ordaz-white, smooth and glistening. The trabecular bone is pink-yellow and unremarkable. The specimen is trisected, and subsequently fragments into 4 pieces. The specimen is entirely submitted in one cassette following decalcification, four pieces. CHAD 10:46 AM EST [facility] Disclaimer Unless otherwise specified, all tissue is 10% NB formalin fixed and paraffin embedded. 10:46 AM EST [facility] Bone Structure of toe of right foot / Unknown 10/06/2024 10:56 AM EST 10/06/2024 11:51 AM EST Specimen from bone (specimen) Structure of toe of right foot / Unknown 10/06/2024 11:00 AM EST 10/06/2024 11:51 AM EST us Harvey Rhodes MD LAB PATHOLOGY ORDERABLES Final Result [facility] [address] [place] [address], * CT Head wo Contrast (10/05/2024 6:51 PM EST) Anatomical Region Laterality Modality Head and Neck Computed Tomogra phy 10/05/2024 7:50 PM EST Impressions 10/05/2024 7:50 PM EST 1. No acute intracranial findings. This document has been electronically signed by: Unique Willett MD on 10/05/2024 19:50:37 Narrative 10/05/2024 7:[address] head without contrast Comparison: None Findings: No intra-axial mass, midline shift, hydrocephalus, or acute hemorrhage. No significant atrophy-like change or white matter disease. There is no sinus or mastoid fluid. The orbits are unremarkable. No skull fracture. Procedure Note Unique Willett MD - 10/05/2024 CT head without contrast Comparison: None Findings: No intra-axial mass, midline shift, hydrocephalus, or acute hemorrhage. No significant atrophy-like change or white matter disease. There is no sinus or mastoid fluid. The orbits are unremarkable. No skull fracture. IMPRESSION: 1. No acute intracranial findings. This document has been electronically signed by: Unique Willett MD on 10/05/2024 19:50:37 us Cody Nguyen MD IMG CT PROCEDURES F inal Result * [place] urine culture tube (10/05/2024 5:10 PM EST) Extra Tube Hold for add-ons. 10/05/2024 7:01 PM EST [facility] Comment:Auto resulted. Urine Urine specimen obtained by clean catch procedure / Unknown 10/05/2024 5:10 PM EST 10/05/2024 5:54 PM EST us Cody Nguyen MD LAB URINE ORDERABLE S Final Result [facility] [address] [place] [address], [place] [phone] * [place] top urine tube (10/05/2024 5:10 PM EST) Extra Tube Hold for add-ons. 10/05/2024 7:01 PM EST [facility] Comment:Auto resulted. Urine Urine specimen obtained by clean catch procedure / Unknown 10/05/2024 5:10 PM EST 10/05/2024 5:54 PM EST Cody Nguyen MD LAB URINE ORDERABLE S Final Result [facility] [address] [place] [address], [place] [phone] * Routine EEG (10/05/2024 2:24 PM EST) Narrative Hudson Farrell MD - 10/06/2024 12:40 PM EST The waking background activity consists of low voltage fast frequencies seen diffusely intermixed with the posterior low voltage 9 to 10 Hz alpha frequency. ??Mild intermittent scattered theta is seen over both hemispheres accentuated by drowsiness. ??Light stages of sleep were entered briefly. Photic stimulation is without activation. Hyperventilation was omitted. Impression: This EEG is considered minimally abnormal due to mild scattered background slowing which could be the effect of drowsiness. ??No paroxysmal discharges are seen Emani ZHANG NEUROLOGY ORDERABLES Final Re sult * Troponin I high sensitivity (10/05/2024 1:03 AM EST) Only the most recent of2 resultswithin the time period is included. High Sensitivity Troponin I 7 <=79 ng/L LAB CHEMISTRY METHOD 10/05/2024 1:40 AM EST [facility] Blood Venous blood specimen / Unknown Venipuncture / Unknown 10/05/2024 1:03 AM EST 10/05/2024 1:08 AM EST Narrative [facility] - 10/05/2024 1:40 AM EST High levels of biotin in samples may falsely decrease hsTroponin values. ??Use caution when interpreting hsTroponin results in patients taking biotin who exhibit renal impairment (eGFR <60) or in patients taking more than 20 mg/day of biotin. us Emily ZHANG LAB BLOOD ORDERABLES Fi nal Result JASON [facility] ([facility]) [facility] [address] [place] [address], [place] [phone] * MR Foot wo and w Contrast Right (10/03/2024 12:54 PM EST) Anatomical Region Laterality Modality Lower Extremities, Foot Right Magnetic Resonance 10/04/2024 6:32 AM EST Impressions 10/04/2024 7:02 AM EST 1. ??Findings suspicious for osteomyelitis centered at the second toe PIP with involvement of the middle and proximal phalanges 2. ??Ill-defined collections/phlegmon centered around the second toe MTP, medial aspect of the second toe at the level of the PIP and along the medial aspect of the first metatarsal head 3. ??Abnormal enhancement of the second toe MTP joint fluid which may represent septic joint -------- FINAL REPORT -------- Dictated By: Terra Soares Dictated Date: 10/04/2024 06:32 ET Assigned Physician: Terra Soares Reviewed and Electronically Signed By: Terra Soares Signed Date: 10/04/2024 07:02 ET Workstation ID: [id number] Transcribed By: Self Edit Transcribed Date: 10/04/2024 06:32 ET Narrative 10/04/2024 7:02 AM EST INDICATION: According to the electronic medical record, right second toe diabetic wound with possible osteomyelitis. COMPARISON: ??Correlation is made with radiographs dated 10/02/2024 as well as prior MRI of the right foot dated June 2023 TECHNIQUE: ??Multiplanar, multisequence MRI was performed of the right foot without and after the uneventful intravenous contrast administration of 20 mL Dotarem. FINDINGS: ?? Bone: ??Postsurgical appearance of the right great toe status post amputation. ??The right first metatarsal and sesamoids are intact without abnormal bone marrow signal. ??Cystic change along the first metatarsal head. T1 marrow replacement of the middle phalanx and proximal phalanx (with sparing of the proximal phalangeal base) with corresponding T2 fat sat hyperintense signal (series 6, image 17; series 9, image 17) and enhancement suspicious for acute osteomyelitis. Soft Tissues: ??Overlying skin defect is noted along the dorsal aspect of the right second toe PIP. ??Ill-defined fluid signal with peripheral enhancement is noted centered at the right second toe MTP extending into the first and second and second and third intermetatarsal bursal spaces (series 11, image 12). ??These areas may represent fluid collections/phlegmon with possible septic joint involving the second toe MTP. ??Nonspecific focal area of nonenhancement is noted at the level of the first metatarsal head medially (series 11, image 13) and along the medial aspect of the second toe at the level of the PIP (series 11, image 6). There is mild fatty infiltration of the interosseous muscles with subcutaneous soft tissue swelling of the right foot. Procedure Note Terra Soares MD - 10/04/2024 INDICATION: According to the electronic medical record, right second toediabetic wound with possible osteomyelitis. COMPARISON: Correlation is made with radiographs dated 10/02/2024 as wellas prior MRI of the right foot dated June 2023 TECHNIQUE: Multiplanar, multisequence MRI was performed of the right footwithout and after the uneventful intravenous contrast administration of 20mL Dotarem. 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 The right first metatarsal and sesamoids are intact withoutabnormal bone marrow signal. Cystic change along the first metatarsalhead. T1 marrow replacement of the middle phalanx and proximal phalanx (withsparing of the proximal phalangeal base) with corresponding T2 fat sathyperintense signal (series 6, image 17; series 9, image 17) andenhancement suspicious for acute osteomyelitis. Soft Tissues: Overlying skin defect is noted along the dorsal aspect ofthe right second toe PIP. Ill-defined fluid signal with peripheralenhancement is noted centered at the right second toe MTP extending intothe first and second and second and third intermetatarsal bursal spaces(series 11, image 12). These areas may represent fluidcollections/phlegmon with possible septic joint involving the second toeMTP. Nonspecific focal area of nonenhancement is noted at the level ofthe first metatarsal head medially (series 11, image 13) and along themedial aspect of the second toe at the level of the PIP (series 11, image6). There is mild fatty infiltration of the interosseous muscles withsubcutaneous soft tissue swelling of the right foot. IMPRESSION: 1. Findings suspicious for osteomyelitis centered at the second toe PIPwith involvement of the middle and proximal phalanges 2. Ill-defined collections/phlegmon centered around the second toe MTP,medial aspect of the second toe at the level of the PIP and along themedial aspect of the first metatarsal head 3. Abnormal enhancement of the second toe MTP joint fluid which mayrepresent septic joint -------- FINAL REPORT -------- Dictated By: Terra Soares Dictated Date: 10/04/2024 06:32 ET Assigned Physician: Terra Soares Reviewed and Electronically Signed By: Terra Soares Signed Date: 10/04/2024 07:02 ET Workstation ID: [id number] Transcribed By: Self Edit Transcribed Date: 10/04/2024 06:32 ET us Esther ZHANG IMG MRI PROCEDURES Final Result * (ABNORMAL) Lactate (10/03/2024 8:56 AM EST) [facility] Lactate 2.4(H) 0.4 - 2.0 mmol/L LAB CHEMISTRY METHOD 10/03/2024 9:32 AM EST [facility] Blood Venous blood specimen / Unknown Venipuncture / Unknown 10/03/2024 8:56 AM EST 10/03/2024 9:04 AM EST Masoud ZHANG LAB BLOOD ORDERABLES Krissy l Result [facility]) [facility] [address] [place] [address], [place] [phone] * MRSA molecular study (10/03/2024 8:16 AM EST) [facility] MRSA Screen PCR Not Detected Not Detected LAB MICROBIOLOGY METHOD 10/03/2024 12:56 PM EST [facility] Swab Both anterior nares / Unknown Non-blood Collection / Unknown 10/03/2024 8:16 AM EST 10/03/2024 8:32 AM EST Masoud ZHANG LAB MICROBIOLOGY - GENERA L ORDERABLES Final Result [facility] [address] [place] [address], [place] [phone] * (ABNORMAL) Culture wound with gram stain (10/02/2024 3:04 PM EST) Culture, Wound Methicillin-Sensiti ve Staphylococcus aureus(A) CARY 10/07/2024 10:11 AM [facility] Comment: Negative for PBP2a - indicates susceptible to Oxacillin The organism value for this result has been updated. These results have been appended to the previously preliminary verified report. Edited result: Previously reported as Staphylococcus aureus on 10/04/2024 at 1131 EST. Culture, Wound Light Growth Acinetobacter baumannii complex(A) CARY 10/07/2024 10:11 AM [facility] Comment: The organism value for this result has been updated. These results have been appended to the previously preliminary verified report. This is an edited result. Previous organism was Gram negative bacilli on 10/05/2024 at 1040 EST. Culture, Wound Light Growth Stenotrophomonas maltophilia(A) CARY 10/07/2024 10:11 AM [facility] Comment: The organism value for this result has been updated. These results have been appended to the previously preliminary verified report. Gram Stain Result No polymorphonuclear leukocytes, No epithelial cells, and No organisms noted 10/07/2024 10:11 AM [facility] Drainage Structure of toe of right foot / Unknown 10/02/2024 3:04 PM EST 10/02/2024 3:10 PM EST Narrative Organism Antibiotic Method Susceptibility Methicillin-Sensitive Staphylococcus aureus Benzylpenicillin CARY >=0.5 ug/ml: Resistant Methicillin-Sensitive Staphylococcus aureus Oxacillin CARY 0.5 ug/ml: Susceptible Methicillin-Sensitive Staphylococcus aureus Gentamicin CARY <=0.5 ug/ml: Susceptible Methicillin-Sensitive Staphylococcus aureus Ciprofloxacin CARY <=0.5 ug/ml: Susceptible Methicillin-Sensitive Staphylococcus aureus Levofloxacin CARY 0.25 ug/ml: Susceptible Methicillin-Sensitive Staphylococcus aureus Moxifloxacin CARY <=0.25 ug/ml: Susceptible Methicillin-Sensitive Staphylococcus aureus Erythromycin CARY <=0.25 ug/ml: Susceptible Methicillin-Sensitive Staphylococcus aureus Clindamycin CARY <=0.25 ug/ml: Susceptible Methicillin-Sensitive Staphylococcus aureus Quinupristin/Dalfopristi n CARY <=0.25 ug/ml: Susceptible Methicillin-Sensitive Staphylococcus aureus Linezolid CARY 2 ug/ml: Susceptible Methicillin-Sensitive Staphylococcus aureus Vancomycin CARY <=0.5 ug/ml: Susceptible Methicillin-Sensitive Staphylococcus aureus Tetracycline CARY >=16 ug/ml: Resistant Methicillin-Sensitive Staphylococcus aureus Rifampin CARY <=0.5 ug/ml: Susceptible Methicillin-Sensitive Staphylococcus aureus Trimethoprim/Sulfamethox azole CARY 160 ug/ml: Resistant Acinetobacter baumannii complex Ampicillin/Sulbactam CARY <=2 ug/ml: Susceptible Acinetobacter baumannii complex Piperacillin/Tazobactam CARY <=4 ug/ml: Susceptible Acinetobacter baumannii complex Ceftazidime CARY 8 ug/ml: Susceptible Acinetobacter baumannii complex Meropenem CARY 1 ug/ml: Susceptible Acinetobacter baumannii complex Ciprofloxacin CARY 0.25 ug/ml: Susceptible Acinetobacter baumannii complex Levofloxacin CARY <=0.12 ug/ml: Susceptible Acinetobacter baumannii complex Trimethoprim/Sulfamethox azole CARY <=20 ug/ml: Susceptible Stenotrophomonas maltophilia Levofloxacin DISK DIFFUSION Susceptible Stenotrophomonas maltophilia Minocycline DISK DIFFUSION Intermediate Stenotrophomonas maltophilia Trimethoprim/Sulfamethox azole DISK DIFFUSION Susceptible us Bushra ZHANG LAB MICROBIOLOGY - GENERAL ORDERABLES Final Result [facility]) [facility] [address] [place] [address], * Vascular US Duplex Lower Extremity Venous Right (10/02/2024 1:56 PM EST) Anatomical Region Laterality Modality Vascular, Abdomen Ultrasound 10/02/2024 2:08 PM EST Impressions 10/02/2024 2:10 PM EST Normal right lower leg venous study. No evidence of DVT. -------- FINAL REPORT -------- Dictated By: Marlon Miller Dictated Date: 10/02/2024 14:08 ET Assigned Physician: Marlon Miller Reviewed and Electronically Signed By: Marlon Miller Signed Date: 10/02/2024 14:10 ET Workstation ID: [id number] Transcribed By: Self Edit Transcribed Date: 10/02/2024 14:08 ET Narrative 10/02/2024 2:10 PM EST EXAMINATION: Ultrasound right lower leg venous study. CLINICAL INDICATION: Pain. COMPARISON: None. TECHNIQUE: Routine grayscale, color and Doppler imaging of right lower leg veins were performed. FINDINGS: There is normal color flow,, respiratory variation and Doppler imaging of right common femoral, greater saphenous, superficial femoral, popliteal, gastrocnemius, distal peroneal and posterior tibial veins. No Brown's cyst seen. The soft tissues are normal. Procedure Note Marlon Miller MD - 10/02/2024 EXAMINATION: Ultrasound right lower leg venous study. CLINICAL INDICATION: Pain. COMPARISON: None. TECHNIQUE: Routine grayscale, color and Doppler imaging of right lower legveins were performed. FINDINGS: There is normal color flow,, respiratory variation and Dopplerimaging of right common femoral, greater saphenous, superficial femoral,popliteal, gastrocnemius, distal peroneal and posterior tibial veins. NoBaker's cyst seen. The soft tissues are normal. IMPRESSION: Normal right lower leg venous study. No evidence of DVT. -------- FINAL REPORT -------- Dictated By: Marlon Miller Dictated Date: 10/02/2024 14:08 ET Assigned Physician: Marlon Miller Reviewed and Electronically Signed By: Marlon Miller Signed Date: 10/02/2024 14:10 ET Workstation ID: [id number] Transcribed By: Self Edit Transcribed Date: 10/02/2024 14:08 ET Armand Madrid MD CV VASCULAR PROCEDURES Fi nal Result * (ABNORMAL) Hemoglobin A1c (08/27/2024 9:43 AM EST) Hemoglobin A1C 7.2(H) <6.5 % LAB CHEMISTRY METHOD 08/27/2024 1:26 PM EST [facility] Mean Bld Glu Estim. 160 mg/dL LAB CHEMISTRY METHOD 08/27/2024 1:26 PM EST [facility] Blood Venous blood specimen / Unknown Venipuncture / Unknown 08/27/2024 9:43 AM EST 08/27/2024 10:01 AM EST Ifeanyi Pittman MD LAB BLOOD ORDERABLES Final Re sult Performing Organization Address [facility]/ZIP Co de Phone Number [facility] [address] [place] [address], * (ABNORMAL) Microalbumin creatinine urine ratio (07/23/2024 10:59 AM EST) Creatinine, Urine 16.0 mg/dL LAB CHEMISTRY METHOD 07/23/2024 7:19 PM EST [facility] Microalb, Ur <5.0 0.0 - 29.0 mg/L LAB CHEMISTRY METHOD 07/23/2024 7:19 PM EST [facility] Microalb/Creat Ratio <31(H) <30 mg/g creat LAB CHEMISTRY METHOD 07/23/2024 7:19 PM EST [facility] Urine Urine specimen obtained by clean catch procedure / Unknown 07/23/2024 10:59 AM EST 07/23/2024 4:47 PM EST Ifeanyi Pittman MD LAB URINE ORDERABLES Final Re sult Performing Organization Address [facility]/ZIP Co de Phone Number [facility] [address] [place] [address], [place] [phone] from Last 3 Months or Most Recently Relevant to Health Maintenance Insurance [place] [id number] [place] - [place] Advance Directives Documents on File Type Date Recorded Patient Paster Supervisor Expl anation Health Care Decision (hx) 09/27/2022 HE ALTH CARE PROXY Health Care Decision (hx) 09/27/2022 HE ALTH CARE PROXY Health Care Decision (hx) 09/27/2022 HE ALTH CARE PROXY Health Care Decision (hx) 09/27/2022 HE ALTH CARE PROXY Health Care Decision (hx) 09/27/2022 HE ALTH CARE PROXY Health Care Decision (hx) 09/27/2022 HE ALTH CARE PROXY Health Care Decision (hx) 09/27/2022 HE ALTH CARE PROXY Health Care Decision (hx) 09/27/2022 HE ALTH CARE PROXY Health Care Decision (hx) 09/27/2022 HE ALTH CARE PROXY Health Care Decision (hx) 09/27/2022 HE ALTH CARE PROXY Health Care Decision (hx) 12/19/2015 AD BERRY DIRECTIVE Health Care Decision (hx) 12/19/2015 AD BERRY DIRECTIVE Health Care Decision (hx) 12/19/2015 AD BERRY DIRECTIVE Health Care Decision (hx) 12/19/2015 AD BERRY DIRECTIVE Health Care Decision (hx) 12/19/2015 AD BERRY DIRECTIVE Health Care Decision (hx) 12/19/2015 AD BERRY DIRECTIVE Health Care Decision (hx) 12/19/2015 AD BERRY DIRECTIVE Health Care Decision (hx) 12/19/2015 AD BERRY DIRECTIVE Health Care Decision (hx) 12/19/2015 AD BERRY DIRECTIVE Health Care Decision (hx) 12/19/2015 AD BERRY DIRECTIVE Health Care Decision (hx) 12/19/2015 AD BERRY DIRECTIVE Health Care Decision (hx) 12/19/2015 AD BERRY DIRECTIVE Health Care Decision (hx) 12/19/2015 AD BERRY DIRECTIVE Health Care Decision (hx) 12/19/2015 AD BERRY DIRECTIVE Health Care Decision (hx) 12/19/2015 AD BERRY DIRECTIVE Health Care Decision (hx) 12/19/2015 AD BERRY DIRECTIVE Health Care Decision (hx) 12/19/2015 AD BERRY DIRECTIVE Health Care Decision (hx) 12/19/2015 AD BERRY DIRECTIVE Health Care Decision (hx) 12/19/2015 AD BERRY DIRECTIVE Health Care Decision (hx) 12/19/2015 AD BERRY DIRECTIVE Health Care Decision (hx) 12/19/2015 AD BERRY DIRECTIVE Health Care Decision (hx) 12/19/2015 AD BERRY DIRECTIVE Health Care Decision (hx) 12/19/2015 AD BERRY DIRECTIVE Health Care Decision (hx) 12/19/2015 AD BERRY DIRECTIVE Health Care Decision (hx) 12/19/2015 AD BERRY DIRECTIVE Health Care Decision (hx) 12/19/2015 AD BERRY DIRECTIVE Health Care Decision (hx) 12/19/2015 AD BERRY DIRECTIVE Health Care Decision (hx) 05/23/2015 AD BERRY DIRECTIVE Health Care Decision (hx) 05/23/2015 AD BERRY DIRECTIVE Health Care Decision (hx) 05/23/2015 AD BERRY DIRECTIVE Health Care Decision (hx) 05/23/2015 AD BERRY DIRECTIVE Health Care Decision (hx) 05/23/2015 AD BERRY DIRECTIVE Health Care Decision (hx) 05/23/2015 AD BERRY DIRECTIVE Health Care Decision (hx) 05/23/2015 AD BERRY DIRECTIVE Health Care Decision (hx) 05/23/2015 AD BERRY DIRECTIVE Health Care Decision (hx) 05/23/2015 AD BERRY DIRECTIVE Health Care Decision (hx) 05/23/2015 AD BERRY DIRECTIVE Health Care Decision (hx) 05/23/2015 AD BERRY DIRECTIVE Health Care Decision (hx) 05/23/2015 AD BERRY DIRECTIVE Health Care Decision (hx) 05/23/2015 AD BERRY DIRECTIVE Health Care Decision (hx) 05/23/2015 AD BERRY DIRECTIVE Health Care Decision (hx) 05/23/2015 AD BERRY DIRECTIVE Health Care Decision (hx) 05/23/2015 AD BERRY DIRECTIVE Health Care Decision (hx) 05/23/2015 AD BERRY DIRECTIVE Health Care Decision (hx) 05/23/2015 AD BERRY DIRECTIVE Health Care Decision (hx) 05/23/2015 AD BERRY DIRECTIVE Health Care Decision (hx) 05/23/2015 AD BERRY DIRECTIVE Health Care Decision (hx) 05/23/2015 AD BERRY DIRECTIVE Health Care Decision (hx) 05/23/2015 AD BERRY DIRECTIVE Health Care Decision (hx) 05/23/2015 AD BERRY DIRECTIVE Health Care Decision (hx) 05/23/2015 AD BERRY DIRECTIVE Health Care Decision (hx) 05/23/2015 AD BERRY DIRECTIVE Health Care Decision (hx) 05/23/2015 AD BERRY DIRECTIVE Health Care Decision (hx) 05/23/2015 AD BERRY DIRECTIVE Health Care Decision (hx) 05/17/2015 AD BERRY DIRECTIVE Health Care Decision (hx) 05/17/2015 AD BERRY DIRECTIVE Health Care Decision (hx) 05/17/2015 AD BERRY DIRECTIVE Health Care Decision (hx) 05/17/2015 AD BERRY DIRECTIVE Health Care Decision (hx) 05/17/2015 AD BERRY DIRECTIVE Health Care Decision (hx) 05/17/2015 AD BERRY DIRECTIVE Health Care Decision (hx) 05/17/2015 AD BERRY DIRECTIVE Health Care Decision (hx) 05/17/2015 AD BERRY DIRECTIVE Health Care Decision (hx) 05/17/2015 AD BERRY DIRECTIVE Health Care Decision (hx) 05/17/2015 AD BERRY DIRECTIVE Health Care Decision (hx) 05/17/2015 AD BERRY DIRECTIVE Health Care Decision (hx) 05/17/2015 AD BERRY DIRECTIVE Health Care Decision (hx) 05/17/2015 AD BERRY DIRECTIVE Health Care Decision (hx) 05/17/2015 AD BERRY DIRECTIVE Health Care Decision (hx) 05/17/2015 AD BERRY DIRECTIVE Health Care Decision (hx) 05/17/2015 AD BERRY DIRECTIVE Health Care Decision (hx) 05/17/2015 AD BERRY DIRECTIVE Health Care Decision (hx) 05/17/2015 AD BERRY DIRECTIVE Health Care Decision (hx) 05/17/2015 AD BERRY DIRECTIVE Health Care Decision (hx) 05/17/2015 AD BERRY DIRECTIVE Health Care Decision (hx) 05/17/2015 AD BERRY DIRECTIVE Health Care Decision (hx) 05/17/2015 AD BERRY DIRECTIVE Health Care Decision (hx) 05/17/2015 AD BERRY DIRECTIVE Health Care Decision (hx) 05/17/2015 AD BERRY DIRECTIVE Health Care Decision (hx) 05/17/2015 AD BERRY DIRECTIVE Health Care Decision (hx) 05/17/2015 AD BERRY DIRECTIVE Health Care Decision (hx) 05/17/2015 AD BERRY DIRECTIVE * Full Code - Default (Latest Code Status on File) Date Activated Date Inactivated Comments 10/02/2024 4:23 PM 10/14/2024 2:33 AM This is orde r is used when code status has not been discussed with the patient, or code status is otherwise unknown/unconfirmed To update the patient's code status, place a code status order. Do not modify or discontinue any currently active code status orders. Care Teams Glass Sander Relationship Specialty Start Date End Date Ifeanyi Pittman MD [address] [place] [address] PCP - General 08/13/22
--- OUTSIDE RECORDS SUMMARY | 2024-11-17 19:40 | XMS_ITS | Encounter Summary ---
Author Organization [facility] Address [address] [place] [address] Care Team Providers Care Order Entry Clerk Name Role Phone Ifeanyi Pittman MD Primary Care Provider Reason for Visit * Reason Onset Date Comments Appointment 11/12/2024 Encounter Details Date Type Department Care Team (Late st Contact Info) Description 11/12/2024 Telephone Vascular Surgery - [place] [address] [place] [phone] Harvey Rhodes MD [address] Anurag [address] [place] [phone] Appointment Social History Tobacco Use Types Packs/Day Years [...] AM EST documented as of this encounter Functional Status * Are you deaf or do you have serious difficulty hearing? Answer Date of Assessment Author No 10/19/2024 7:39 AM EST Kayode Cota RN * Are you blind or do [...] Entry Date Author No 10/19/2024 7:39 AM Kayode Delarosa RN documented in this encounter Progress Notes * Cory Cloud - 11/12/2024 1:42 PM EST Called patient to reschedule appointment. Phone rang busy, unable to leave message Cince appt was a post op regarding recent amp, I contacted emergency contacts with hopes to reach [facility], but no response either documented in this encounter Plan of Treatment Upcoming Encounters Date Type Department Care Team (Late st Contact Info) Description 01/10/2025 2:45 PM EDT Office Visit Orthopedic Surgery - [place] [address] [phone] Cory Lama DPM [address] [address] documented as of this encounter Visit Diagnoses Not on filedocumented in this encounter Care Teams Order Entry Clerk Relationship Specialty Start Date End Date Ifeanyi Pittman MD [address] [place] [address] PCP - General 08/13/22 documented as of this encounter
--- OUTSIDE RECORDS SUMMARY | 2024-11-17 19:40 | XMS_ITS ---
Author Organization [facility] Address [address] [place] [phone] Care Team Providers Care Retail Analytics Manager Name Role Phone Ifeanyi Pittman Primary Care Provider [facility]- Social History Sex Assigned At : Social History Observation Description Sex Assigned At Male Encounters Encounter Location Date Provider Diagnosis [address] [phone] 11/16/2024 Ifeanyi Pittman Plan Of Treatment Next Appt Details Provider Name:Ifeanyi Pittman, 12/03/2024 08:40:00 AM, [address] [place] [address], [phone], Progress Notes * Bunny MORALESDOB: (54 yo M)Acc No.[id number]:11/16/2024 Patient:?Oscar MORALES :1970???Age:54 Y???Sex:Male Address:[address] [place] [address] , [address], [place], [phone] * * Date:?
--- OUTSIDE RECORDS SUMMARY | 2024-11-17 19:40 | XMS_ITS | Encounter Summary ---
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 Transcribed By: Self Edit Transcribed Date: 10/19/2024 08:57 ET Tissue exam: [id number] Order: [id number] Collected 10/06/2024 10:56 Status: Final result Visible to patient: No (inaccessible in MyChart) Dx: Osteomyelitis of second toe of right ... 0 Result Notes Component Final Diagnosis A. Toe, Right, Right 2nd toe amputation: -ACUTE OSTEOMYELITIS B. Toe, Right, Right 2nd distal metatarsal bone: -VIABLE APPEARING BONE AND CARTILAGE at 1046 Gross Description A. Toe, Right, Right 2nd toe amputation: Labeled right second toe R . Received in formalin is a 5.1 x 2.2 x 2 cm lower extremity digit disarticulated at the metatarsophalangeal joint. The dorsal surface, overlying the proximal intraphalangeal joint, displays a 1.8 x 1.3 cm ulceration involving the underlying bone, and located 1.3 cm fromthe grossly viable soft tissue margin. The uninvolved skin is ordaz-white and wrinkled. The toenail is ordaz-yellow and thickened. The soft tissue margin is inked blue. A professional healthcare representative longitudinal cross-section from lesion to margin is submitted in two cassettes following decalcification, one piece each B. Toe, Right, Right 2nd distal metatarsal bone: Labeled right second toe R . Received in formalin is a 1.3 x 1.1 x 0.6 cm articular bone fragment.The cartilage covered articular surface is ordaz-white, smooth and glistening. The trabecular bone ispink-yellow and unremarkable. The specimen is trisected, and subsequently fragments into 4 pieces. The specimen is entirely submitted in one cassette following decalcification, four pieces. CHAD Disclaimer Unless otherwise specified, all tissue is 10% NB formalin fixed and paraffin embedded. Resulting Agency [facility] Specimen Collected: 10/06/24 10:56 EST Last Resulted: 10/08/24 10:46 EST ASSESSMENT: 1. Open wound of right foot, initial encounter RECOMMENDATIONS: 54 y.o. male diabetic with history of noncompliance seen in the ED for complaint of right foot painfollowing right second toe amputation on 10/06/24 for osteomyelitis. Patient had clean/viable margins on pathology. He was discharged to a psych facility on 10/13/24. No antibiotics prescribed on DC. He was released at some point from the psych facility and then represented to the ED today. X- ray andCT scan reviewed and case reviewed with Dr. Rhodes. No further surgical intervention will be done at this time. Recommend he remain heel weight bearing only. He should be started on a course of Levaquin which was susceptible to all organisms present on his OR cultures. Follow up was previously arranged and is listed below along with wound care instructions however patient is usually noncompliant with all instructions. Follow up appointment on 11/01/24 at 3:[address] Rhodes's office at: [facility] Vascular Surgery [address], [address] [place] [address] Wound care instructions: Keep incision clean and dry. Ideally covered with dry sterile gauze and osiel. Change dressing every other day. If you are unable to keep covered, keep incision open to air. Remain heel weight bearing until cleared at follow up. EZIO TIME I spent a total of 20 minutes of non-overlapping time on the visit. Low complexity decision making. Cosigned by Harvey Rhodes MD at 10/22/2024 10:33 AM EST documented in this encounter Plan of Treatment Upcoming Encounters Date Type Department Care Team (Late st Contact Info) Description 01/10/2025 2:45 PM EDT Office Visit Orthopedic Surgery - [place] [address] [id number] Cory Lama, DPM [address] [address] documented as of this encounter Procedures Procedure Name Priority Date/Time Associated Diagnosis Comments POCT GLUCOSE BLOOD Routine 10/19/2024 11 :[address] LOWER EXTREMITY W CONTRAST RIGHT STAT 10/19/2024 10:45 AM EST XR FOOT 3+ VIEWS RIGHT STAT 8:49 AM EST LACTATE, WITH REFLEX STAT 10/19/2024 8:29 AM EST CULTURE BLOOD STAT 10/19/2024 8:29 AM EST BETA HYDROXYBUTYRATE STAT 10/19/2024 8:19 AM EST CBC WITH AUTO DIFFERENTIAL STAT 10/19/2024 8:19 AM EST CULTURE BLOOD STAT 10/19/2024 8:19 AM EST SEDIMENTATION RATE STAT 10/19/2024 8: 19 AM EST CBC AND DIFFERENTIAL STAT 10/19/2024 8:19 AM EST C-REACTIVE PROTEIN STAT 10/19/2024 8: 19 AM EST BASIC METABOLIC PANEL STAT 10/19/2024 8:19 AM EST POCT GLUCOSE BLOOD Routine 10/19/2024 8: 00 AM EST documented in this encounter Results * (ABNORMAL) POCT Glucose, blood (10/19/2024 11:22 AM EST) Glucose POCT 248(H) 70 - 100 mg/dL 10/27/2024 2:50 PM EST [facility] Blood Capillary blood specimen / Unknown 10/19/2024 11:22 AM EST 10/27/2024 2:51 PM EST us Generic Provider Poct LAB POINT OF CARE TEST DOCKED DEVICE UNSOLICITED RESULTS Final Result [facility] [address] [place] [address], [place] [phone] * CT Lower Extremity w Contrast Right [...] Signed Date: 10/19/2024 11:03 ET Workstation ID: [id number] Transcribed By: Self Edit Transcribed Date: 10/19/2024 [...] was performed utilizing dose reduction techniques. Total EOF034 3-D reformatted images were created on an [...] Signed Date: 10/19/2024 11:03 ET Workstation ID: [id number] Transcribed By: Self Edit Transcribed Date: 10/19/2024 10:53 ET Anitra ZHANG IMG CT PROCEDURES Final Result * XR Foot 3+ Views Right (10/19/2024 8:49 AM EST) Anatomical Region Laterality Modality Lower Extremities, Foot Right [facility] 10/19/2024 8:57 AM EST Impressions 10/19/2024 [...] Dictated Date: 10/19/2024 08:57 ET Assigned Physician: OJSIAH WHITMAN Reviewed and Electronically Signed By: JOSIAH WHITMAN Signed Date: 10/19/2024 09:09 ET Workstation ID: [id number] Transcribed By: Self Edit Transcribed Date: 10/19/2024 [...] Signed Date: 10/19/2024 09:09 ET Workstation ID: [id number] Transcribed By: Self Edit Transcribed Date: 10/19/2024 08:57 ET Anitra ZHANG IMG XR PROCEDURES Final Result * (ABNORMAL) Lactate, with reflex (10/19/2024 8:29 AM EST) LACTIC ACID 2.2(H) 0.4 - 2.0 mmol/L LAB CHEMISTRY METHOD 10/19/2024 9:08 AM EST [facility] Blood Venous blood specimen / Unknown Venipuncture / Unknown 10/19/2024 8:29 AM EST 10/19/2024 8:37 AM EST Anitra ZHANG LAB BLOOD ORDERABLES Fin al Result Performing Organization Address [facility] Co de Phone Number [facility] [address] [place] [address], [place] [phone] * Blood Culture, Peripheral Draw #2 (10/19/2024 8:29 AM EST) Culture, Blood No growth at 5 days LAB MICROBIOLOGY METHOD 10/24/2024 9:01 AM EST [facility] Blood Venous blood specimen / Unknown Venipuncture / Unknown 10/19/2024 8:29 AM EST 10/19/2024 8:37 AM EST Anitra ZHANG LAB MICROBIOLOGY - GENER AL ORDERABLES Final Result [facility] [address] [place] [address], * (ABNORMAL) CBC auto differential (10/19/2024 8:19 AM EST) [facility] WBC 7.3 4.8 - 10.8 K/mcL LAB HEMETOLOGY METHOD 10/19/2024 8:44 AM EST [facility] RBC 4.30(L) 4.50 - 5.50 M/mcL LAB HEMETOLOGY METHOD 10/19/2024 8:44 AM [facility] Hemoglobin 13.5 13.5 - 17.5 g/dL LAB HEMETOLOGY METHOD 10/19/2024 8:44 AM [facility] Hematocrit 39.6(L) 42.0 - 54.0 % LAB HEMETOLOGY METHOD 10/19/2024 8:44 AM [facility] MCV 93.2 79.0 - 98.0 FL LAB HEMETOLOGY METHOD 10/19/2024 8:44 AM [facility] MCH 31.8 27.0 - 32.0 pcg LAB HEMETOLOGY METHOD 10/19/2024 8:44 AM [facility] MCHC 34.1 32.0 - 37.0 g/dL LAB HEMETOLOGY METHOD 10/19/2024 8:44 AM EST [facility] RDW 13.5 11.0 - 15.0 % LAB HEMETOLOGY METHOD 10/19/2024 8:44 AM [facility] Platelets 297 130 - 400 K/mcL LAB HEMETOLOGY METHOD 10/19/2024 8:44 AM [facility] MPV 9.8 7.0 - 11.0 FL LAB HEMETOLOGY METHOD 10/19/2024 8:44 AM [facility] NRBC 0.0 <1.0 % LAB HEMETOLOGY METHOD 10/19/2024 8:44 AM [facility] NRBC Absolute 0.00 <0.10 K/mcL LAB HEMETOLOGY METHOD 10/19/2024 8:44 AM [facility] Neutrophils Relative 78.5 % LAB HEMETOLOGY METHOD 10/19/2024 8:44 AM [facility] Lymphocytes Relative 7.6 % LAB HEMETOLOGY METHOD 10/19/2024 8:44 AM [facility] Monocytes Relative 13.1 % LAB HEMETOLOGY METHOD 10/19/2024 8:44 AM [facility] Eosinophils Relative 0.1 % LAB HEMETOLOGY METHOD 10/19/2024 8:44 AM [facility] Basophils Relative 0.3 % LAB HEMETOLOGY METHOD 10/19/2024 8:44 AM [facility] Immature Granulocytes Relative 0.4 % LAB HEMETOLOGY METHOD 10/19/2024 8:44 AM [facility] Neutrophils Absolute 5.75 1.50 - 7.00 K/mcL LAB HEMETOLOGY METHOD 10/19/2024 8:44 AM [facility] Lymphocytes Absolute 0.56(L) 1.00 - 5.00 K/mcL LAB HEMETOLOGY METHOD 10/19/2024 8:44 AM [facility] Monocytes Absolute 0.96 0.20 - 1.00 K/mcL LAB HEMETOLOGY METHOD 10/19/2024 8:44 AM [facility] Eosinophils Absolute 0.01 0.00 - 0.50 K/mcL LAB HEMETOLOGY METHOD 10/19/2024 8:44 AM [facility] Basophils Absolute 0.02 0.00 - 0.20 K/mcL LAB HEMETOLOGY METHOD 10/19/2024 8:44 AM [facility] Immature Granulocytes Absolute 0.03 0.00 - 0.03 K/mcL LAB HEMETOLOGY METHOD 10/19/2024 8:44 AM EST [facility] Blood Venous blood specimen / Unknown Venipuncture / Unknown 10/19/2024 8:19 AM EST 10/19/2024 8:37 AM EST [facility] Reina ZHANG LAB BLOOD ORDERABLES Fin al Result Performing Organization Address City/[facility]/ZIP Co de Phone Number [facility] [address] [place] [address], [place] [phone] * Beta hydroxybutyrate (10/19/2024 8:19 AM EST) [facility] Beta-Hydroxybu tyrate 1.3 0.2 - 2.8 mg/dL LAB CHEMISTRY METHOD 10/19/2024 9:07 AM [facility] Blood Venous blood specimen / Unknown Venipuncture / Unknown 10/19/2024 8:19 AM EST 10/19/2024 8:37 AM EST Anitra ZHANG LAB BLOOD ORDERABLES Fin al Result Performing Organization Address [facility] Co de Phone Number [facility] [address] [place] [address], [place] [phone] * (ABNORMAL) Basic metabolic panel (10/19/2024 8:19 AM EST) [facility] Sodium 134 133 - 145 mmol/L LAB CHEMISTRY METHOD 10/19/2024 9:07 AM [facility] Potassium 4.3 3.5 - 5.5 mmol/L LAB CHEMISTRY METHOD 10/19/2024 9:07 AM [facility] Chloride 104 96 - 110 mmol/L LAB CHEMISTRY METHOD 10/19/2024 9:07 AM [facility] CO2 23 21 - 32 mmol/L LAB CHEMISTRY METHOD 10/19/2024 9:07 AM [facility] Anion Gap 7 3 - 11 LAB CHEMISTRY METHOD 10/19/2024 9:07 AM [facility] Glucose 273(H) 70 - 100 mg/dL LAB CHEMISTRY METHOD 10/19/2024 9:07 AM [facility] BUN 12 5 - 25 mg/dL LAB CHEMISTRY METHOD 10/19/2024 9:07 AM [facility] Creatinine 1.07 0.70 - 1.30 mg/dL LAB CHEMISTRY METHOD 10/19/2024 9:07 AM [facility] eGFR 81 >=60 mL/min/1. 73m2 LAB CHEMISTRY METHOD 10/19/2024 9:07 AM [facility] Comment:Calculation based on the??Chronic Kidney Disease Epidemiology Collaboration (CKD-EPI) equation refit??without adjustment for race. BUN/Creatinine Ratio 11.2 LAB CHEMISTRY METHOD 10/19/2024 9:07 AM [facility] Calcium 8.8 8.5 - 10.5 mg/dL LAB CHEMISTRY METHOD 10/19/2024 9:07 AM [facility] Blood Venous blood specimen / Unknown Venipuncture / Unknown 10/19/2024 8:19 AM EST 10/19/2024 8:37 AM EST Anitra ZHANG LAB BLOOD ORDERABLES Fin al Result [facility] [address] [place] [address], * Blood Culture, Peripheral Draw #1 (10/19/2024 8:19 AM EST) Culture, Blood No growth at 5 days LAB MICROBIOLOGY METHOD 10/24/2024 9:01 AM EST [facility] Blood Venous blood specimen / Unknown Venipuncture / Unknown 10/19/2024 8:19 AM EST 10/19/2024 8:37 AM EST Anitra Reina ZHANG LAB MICROBIOLOGY - GENER AL ORDERABLES Final Result Performing Organization Address [facility]/ZIP Co de Phone Number [facility] [address] [place] [address], [place] [phone] * (ABNORMAL) Sedimentation rate, automated (10/19/2024 8:19 AM EST) [facility] Sed Rate 23(H) 0 - 20 mm/hr LAB HEMETOLOGY METHOD 10/19/2024 8:49 AM EST [facility] Blood Venous blood specimen / Unknown Venipuncture / Unknown 10/19/2024 8:19 AM EST 10/19/2024 8:37 AM EST [facility] Reina ZHANG LAB BLOOD ORDERABLES Fin al Result Performing Organization Address [facility] de Phone Number [facility] [address] [place] [address], [place] [phone] * (ABNORMAL) C-reactive protein (10/19/2024 8:19 AM EST) [facility] C-Reactive Protein 2.52(H) <=0.50 mg/dL LAB CHEMISTRY METHOD 10/19/2024 9:23 AM EST [facility] Comment:Results verified by repeat testing Blood Venous blood specimen / Unknown Venipuncture / Unknown 10/19/2024 8:19 AM EST 10/19/2024 8:37 AM EST [facility] Reina ZHANG LAB BLOOD ORDERABLES Fin al Result Performing Organization Address [facility] Co de Phone Number [facility] [address] [place] [address], [place] [phone] * (ABNORMAL) POCT Glucose, blood (10/19/2024 8:00 AM EST) [facility] Glucose POCT 279(H) 70 - 100 mg/dL 10/27/2024 2:50 PM EST [facility] Blood Capillary blood specimen / Unknown 10/19/2024 8:00 AM EST 10/27/2024 2:51 PM EST us Generic Provider Poct LAB POINT OF CARE TEST DOCKED DEVICE UNSOLICITED RESULTS Final Result [facility] ([facility]) [facility] [address] [place] [address], [place] [phone] documented in this encounter Visit Diagnoses Diagnosis Open wound of right foot, initial encounter- Primary documented in this encounter Administered Medications Inactive Administered Medications - up to 3 most recent administrations Medication Order MAR Action Action Date Dose Rate Site iopamidoL (ISOVUE-370) 370 mg iodine /mL (76 %) injection 90 mL 90 mL, intravenous, Once in imaging, Starting on Fri10/19/24 at 1033, For 1 dose Given 10/19/2024 10:37 AM EST 90 mL sodium chloride 0.9 % bolus 1,000 mL 1,000 mL, intravenous, at 2,000 mL/hr, Administer over 30 Minutes, Once, On Fri10/19/24 at 0802, For 1 dose New Bag 10/19/2024 8:31 AM EST 1,000 mL 2000 mL/hr sodium chloride 0.9 % flush 10 mL 10 mL, intravenous, Once, On Fri10/19/24 at 1034, For 1 dose Given 10/19/2024 10:37 AM EST 10 mL documented in this encounter Active and Recently Administered Medications Times are shown in EST. Scheduled Medication Order 10/17/2024 10/18/2024 10/19/2024 iopamidoL (ISOVUE-370) 370 mg iodine /mL (76 %) injection 90 mL (COMPLETED) 90 mL, intravenous, Once in imaging, Starting on Fri10/19/24 at 1033, For 1 dose 1037 (Given - Provid er: Elly Bolden) sodium chloride 0.9 % bolus 1,000 mL (COMPLETED) 1,000 mL, intravenous, at 2,000 mL/hr, Administer over 30 Minutes, Once, On Fri10/19/24 at 0802, For 1 dose 0831 (New Bag - Prov ider: Taya Cloud, RN)0832 (Stopped - Provider: Taya Cloud RN) sodium chloride 0.9 % flush 10 mL (COMPLETED) 10 mL, intravenous, Once, On Fri10/19/24 at 1034, For 1 dose 1037 (Given - Provid er: Elly Bolden) documented in this encounter Orders Lab Orders Without Results Count Last Ordered D ate First Ordered Date POCT GLUCOSE, BLOOD 2 10/19/2024 documented in this encounter Care Teams Repairer [employer] Relationship Specialty Start Date End Date Ifeanyi Pittman MD [address] [place] PCP - General 08/13/22 documented as of this encounter
--- NOTE | 2024-11-17 19:44 | PC.NURSE ---
patient appears to remain at rest able to let his wants be known, asking for snacks and reassurance from staff about returning to inpt unit. appears in no distress
[2024-11-17 19:49] LABS: Ethanol < 10 mg/dL
[2024-11-17 20:00] LABS: Alanine Aminotransferase 26 U/L (0-40); Albumin Level 3.7 g/dL (3.5-5.0); Alkaline Phosphatase 128 U/L (39-117); Anion Gap 10 (12-20); Aspartate Amino Transferase 22 U/L (5-37); Bilirubin Direct 0.1 mg/dL (0.0-0.5); Bilirubin Total 0.4 mg/dL (0.0-1.0); Blood Urea Nitrogen 10 mg/dL (9-16); Calcium 8.9 mg/dL (8.4-10.2); Carbon Dioxide 23 mmol/L (22-29); Chloride 109 mmol/L (96-108); Creatinine Clr Calc Pharmacy 101.3; Estimated Glomerular Filt Rate > 60; Glucose Random 233 mg/dL (60-115); Potassium 3.6 mmol/L (3.3-5.1); Sodium 138 mmol/L (135-145); Total Protein 7.1 g/dL (6.5-8.0)
[2024-11-17 20:02] LABS: Influenza A PCR NEGATIVE (Negative); Influenza B PCR NEGATIVE (Negative); Resp Syncy Virus RNA Qual PCR NEGATIVE (Negative); SARS COV2 PCR INHOUSE NEGATIVE (Negative)
--- NOTE | 2024-11-17 23:28 | MHC.CARE ---
Patient is an [facility] bedsearch. Patient was referred to [facility], however there currently is no bed availability today. [facility] recommends CARE Team follow up in the morning.
--- NOTE | 2024-11-17 23:56 | PC.NURSE ---
Took over care from RN Hyacinth, pt sleeping at this time.
[2024-11-18 10:37] VITALS: BP 139/77; PULSE 82; RESP 16; TEMP 36.5; O2SAT 98
--- NOTE | 2024-11-18 12:06 | PHA.MEDREC ---
Addendum entered by John Marie RPh 11/18/24 12:32: Med rec was reviewed by Yuko. Original Note: Pharmacy Consult ? Medication Reconciliation Pharmacy has completed the medication reconciliation. Spoke with patient to confirm medications. He reports he is not taking bupropion. He takes Lunesta prn. He confirmed metoprolol succ once daily. He confirmed Lantus is 44 units.
[2024-11-18 16:22] LABS: Glucose, Whole Blood 298 mg/dL (60-115)
[2024-11-18] MEDS: Escitalopram Oxalate 20 MG TABLET PO (18:55)
[2024-11-18] MEDS: traMADoL HCL 50 MG TABLET 100 MG PO (18:55)
[2024-11-18 20:30] LABS: Glucose, Whole Blood 227 mg/dL (60-115)
[2024-11-18] MEDS: Sennosides 8.6 MG TABLET PO (21:00)
[2024-11-18] MEDS: ALPRAZolam 0.5 MG TABLET 2 MG PO (21:00)
[2024-11-18] MEDS: Doxepin HCl 25 MG CAPSULE 150 MG PO (21:01)
[2024-11-18] MEDS: Pregabalin 150 MG CAPSULE PO (21:01)
[2024-11-18] MEDS: metFORMIN HCl 1,000 MG TABLET 1000 MG PO (21:01)
[2024-11-18] MEDS: Famotidine 20 MG TABLET 40 MG PO (21:04)
[2024-11-18] MEDS: Zolpidem Tartrate 5 MG TABLET 10 MG PO (21:05)
[2024-11-19] MEDS: Omeprazole 20 MG CAPSULE.DR PO (06:15)
[2024-11-19 06:22] LABS: Glucose, Whole Blood 174 mg/dL (60-115)
--- NOTE | 2024-11-19 06:25 | PC.NURSE ---
Patient slept through the night, no distress observed/reported, med and meals compliant, disposition per care team is respite bed search, no behavior and safety concerns,
[2024-11-19 06:27] VITALS: BP 142/82; PULSE 72; RESP 16; TEMP 36.4; O2SAT 97
[2024-11-19] MEDS: metFORMIN HCl 1,000 MG TABLET 1000 MG PO (09:00)
[2024-11-19] MEDS: Sennosides 8.6 MG TABLET PO (09:01)
[2024-11-19] MEDS: Isosorbide Mononitrate 30 MG TAB.ER.24H PO (09:01)
[2024-11-19] MEDS: ARIPiprazole 15 MG TABLET PO (09:01)
[2024-11-19] MEDS: Aspirin Enteric Coated 81 MG TABLET.DR PO (09:01)
[2024-11-19] MEDS: Metoprolol Succinate ER 25 MG TAB.ER.24H PO (09:01)
[2024-11-19] MEDS: ALPRAZolam 0.5 MG TABLET 2 MG PO (09:03)
[2024-11-19] MEDS: traMADoL HCL 50 MG TABLET 100 MG PO (09:03)
[2024-11-19] MEDS: Pregabalin 150 MG CAPSULE PO (09:03)
[2024-11-19] MEDS: Escitalopram Oxalate 20 MG TABLET PO (09:06)
[2024-11-19] MEDS: Insulin Glargine,Hum.rec.anlog 100 UNIT/ML 10 ML VIAL 44 UNIT SUBCUT (09:09)
[2024-11-19 09:47] VITALS: BP 142/82; PULSE 72; RESP 16; TEMP 36.4; O2SAT 97
== END 2024-11-19 09:47 | disposition home or self-care (01) ==
PROVIDERS: Physician Assistant; Emergency Provider Emergency Medicine
DX: F32.A Depression, unspecified (principal); I10 Essential (primary) hypertension; E11.9 Type 2 diabetes mellitus without complications; I25.10 Atherosclerotic heart disease of native coronary artery without angina pectoris; Z59.02 Unsheltered homelessness; Z95.1 Presence of aortocoronary bypass graft
CPT/HCPCS: 0241U; 36415; 80048; 80076; 80307; 82947; 83735; 85025; 99284; S9485